=== PATIENT | female | born 1960 | race Caucasian/White ===

== ENCOUNTER 2017-07-06 17:58 | Inpatient (IN) | payer OTHER ==
[~2017-07-06] VITALS: Ht 167.6 cm; Wt 68.0 kg
[~2017-07-06 17:58] MED LIST: ATIVAN0.5 M1 PO; ATIVAN1 M1 PO; ATORVASTATIN CA40 M1 PO; DILAUDID2 M1 PO; ESCITALOPRAM OX20 MG PO; LORAZEPAM0.5 M1 PO; MAGNESIUM OXID400 M1 PO; OXYCODONE HCL5 M1 PO; OXYCONTIN20 M1 PO; PANTOPRAZOLE SO40 M1 PO; VICODIN5-300 PO; ZOFRAN ODT4 M1 PO
--- NOTE | 2017-07-06 18:47 | ED GI/GU/ABDOMINAL COMPLAINT ---
See Addendum History of Present Illness General Chief Complaint: General Adult Stated Complaint: SIB PCP FOR INCONTINENCE TO STOOL +WEAKNESS Source: patient Exam Limitations: no limitations Vital Signs & Intake/Output Vital Signs & Intake/Output Vital Signs Date Time Temp Pulse Resp B/P B/P Pulse O2 O2 Flow FiO2 Mean Ox Delivery Rate 07/06 2053 97 16 108/63 96 Room Air 07/06 1806 98.6 110 18 108/68 98 Room Air Allergies Coded Allergies: NO KNOWN ALLERGIES (01/10/12) Reconcile Medications Escitalopram Oxalate 20 MG TABLET 1 TAB PO DAILY MENTAL HEALTH (Reported) Lorazepam 0.5 MG TABLET 1 TAB PO BIDP PRN ANXIETY (Reported) Pantoprazole Sodium 40 MG TABLET.DR 1 TAB PO PRN GI (Reported) Triage Note: 57 YO FEAMLE TO TRIAGE C/O INCONTINENCE OF STOOL AND NOT EATING X5 DAYS. STATES NO APPETITE. DENIES PAIN. PT STATES "IM AN ALCOHOLIC" STATES LAST DRINK WAS 5 DAYS AGO. STATES SHE NORMALLY DRINKS VODKA. DENIES VOMTIING. NOTED TO BE JAUNDICE. Triage Nurses Notes Reviewed? yes ? n Is pt currently ? No Onset: Gradual Duration: week(s): (3) Timing: recent history Location: generalized abdomen No Modifying Factors: none HPI: Patient is a 57-year-old female with history of alcoholism, depression who presents emergency department for evaluation of stool incontinence and weakness for 3 weeks. She reports every bowel movement she has is incontinent. She denies abdominal pain and blood in the stool. She reports mild nausea and retching most mornings. She also states that she is increasingly weak at home mostly of the lower extremities. She lives at home in private residence with . She denies fever, chills, chest pain, shortness of breath. Of note, patient was sober for 6 months after completing rehabilitation July 2016. However, patient reports drinking intermittently after that time. She currently reports that she has not drank since time. Prior to that she was drinking 1 pint a day. She denies any current diagnosis of cirrhosis. Past History Travel History Traveled to [place] past 21 day No Medical History Any Pertinent Medical History? see below for history Neurological: NONE EENT: NONE Cardiovascular: hyperlipidemia Respiratory: NONE Gastrointestinal: NONE Hepatic: NONE Renal: NONE Musculoskeletal: NONE Psychiatric: alcohol dependence, depression Endocrine: NONE Blood Disorders: NONE Cancer(s): NONE [employer]OR/Reproductive: NONE Surgical History Surgical History: non-contributory Psychosocial History Who do you live with Spouse Services at Home None What is your primary language Chinese Tobacco Use: Current Daily Use Daily Tobacco Use Amount/Type: => 5 Cigarettes daily ETOH Use: alcoholic Illicit Drug Use: denies illicit drug use Family History Hx Contributory? No Review of Systems Review of Systems Constitutional: Reports: see HPI, weakness. EENTM: Reports: no symptoms. Respiratory: Reports: no symptoms. Cardiovascular: Reports: no symptoms. GI: Reports: see HPI. Genitourinary: Reports: no symptoms. Musculoskeletal: Reports: no symptoms. Skin: Reports: no symptoms. Neurological/Psychological: Reports: no symptoms. Hematologic/Endocrine: Reports: no symptoms. Immunologic/Allergic: Reports: no symptoms. All Other Systems: Reviewed and Negative Physical Exam Physical Exam General Appearance: alert, awake Head: atraumatic, normal appearance Eyes: Bilateral: PERRL, EOMI, other (mild scleral icterus). Ears, Nose, Throat, Mouth: hearing grossly normal, dry mucosal membranes, yellowing of tongue and floor of mouth Neck: normal inspection, full range of motion Respiratory: normal breath sounds, chest non-tender Cardiovascular: regular rate/rhythm Gastrointestinal: normal bowel sounds, soft, non-tender, hepatomegaly, no rebound or guarding Back: normal inspection, normal range of motion, no vertebral tenderness Extremities: normal range of motion, straight leg raised, leg muscular atrophy bilaterally Skin: intact, jaundice, copper colored, dry Core Measures ACS in differential dx? No Sepsis Present: No Sepsis Focused Exam Completed? No Progress Differential Diagnosis: Hepatitis, liver cirrhosis, cholangitis, cholecystitis, hepatitis C, Plan of Care: Orders Procedure Date/time Status Regular Diet 07/07 B Active LACTIC ACID 07/064 Active OXYGEN SETUP (GEN) 07/06 2107 Active Saline Lock 07/06 2107 Active Admit to inpatient 07/06 2107 Active Vital Signs 07/06 2107 Active Activity/Ambulation 07/06 2107 Active Code Status 07/06 2107 Active Add-on Test (ER Only) 07/06 2051 Active Add-on Test (ER Only) 07/06 2018 Active EKG 07/06 2018 Active PARTIAL THROMBOPLASTIN TIME 07/06 2014 Complete PROTHROMBIN TIME 07/06 2014 Complete LACTIC ACID 07/06 2014 Complete TYPE & SCREEN (NOT X-MATCH) 07/06 2014 Complete Add-on Test (ER Only) 07/06 194 Active MAGNESIUM 07/06 1921 Complete DIRECT BILIRUBIN 07/06 1921 Complete URINE DRUGS OF ABUSE 07/06 1851 Active URINALYSIS 07/06 1851 Active LIPASE 07/06 1851 Complete ETHANOL 07/06 1851 Complete COMPREHENSIVE METABOLIC PANEL 07/06 1851 Complete CBC WITHOUT DIFFERENTIAL 07/06 1851 Complete Current Medications Sig/Miguel Start time Last Medication Dose Stop Time Status Admin Potassium Chloride 40 MEQ ONCE ONE 07/06 2230 AC (K-Dur) 07/06 2231 Magnesium Sulfate 1 GM ONCE ONE 07/06 2100 AC 07/06 (Mag Sulfate in D5) 07/07 Dextrose/Water 100 ML (D5W) Sodium Chloride 1,000 ML ONCE ONE 07/06 2015 AC 07/06 (Normal Saline 0.9%) 07/074 2014 Laboratory Tests 07/06/172042: Lactic Acid 1.1, PT 21.4 H, INR 2.05 H, APTT 35 07/06/171920: Anion Gap 11, Estimated GFR 57 L, BUN/Creatinine Ratio 17.0, Glucose 117 H, Calcium 7.9 L, Magnesium 0.8 *L, Total Bilirubin 10.2 H, Direct Bilirubin 8.5 H, AST 76 H, ALT 20, Alkaline Phosphatase 269 H, Total Protein 7.0, Albumin 2.9 L, Globulin 4.1, Albumin/Globulin Ratio 0.7 L, Lipase 77, CBC w Diff MAN DIFF ORDERED, RBC 2.32 L, MCV 116.1 H, MCH 38.9 H, RDW 20.5 H, MPV 8.6, Segmented Neutrophils 85 H, Band Neutrophils 8 H, Lymphocytes 3 L, Monocytes 4, Platelet Estimate ADEQUATE, Polychromasia 1+, Poikilocytosis 1+, Anisocytosis 1+, Macrocytic Cells 2+, Stomatocytes 1+, PUBS MCHC 33.5, Serum Alcohol < 10.0 Diagnostic Imaging: Viewed by Me: CT Scan. Discussed w/RAD: CT Scan. Radiology Impression: PATIENT: LORRAINE BALDWIN PRESENT AGE: 57 PATIENT ACCOUNT NO: [id number] : 56 LOCATION: [facility] ORDERING PHYSICIAN: Thuan PUGH SERVICE DATE: 07/06/17 EXAM TYPE : CAT - CT ABD & PELVIS W/O IV CONTRAS EXAMINATION: CT ABDOMEN AND PELVIS WITHOUT CONTRAST CLINICAL INFORMATION: Abdominal pain. Hepatomegaly. COMPARISON: 07/06/2011 TECHNIQUE: Multidetector volumetric imaging was performed from the superior aspect of the liver through the pubic symphysis. Sagittal and coronal reformatted images were obtained on the technologist's workstation. DLP: 345 mGy -cm FINDINGS: LUNG BASES: Scattered linear opacities of atelectasis in lung bases. No basilar consolidation or pleural effusion. Atherosclerotic calcification of coronary arteries and thoracic aorta. LIVER, GALLBLADDER, AND BILIARY TREE: Hepatomegaly, diffuse hepatic steatosis and lobulated hepatic contour, system with cirrhosis. No evidence of hepatic mass on this noncontrast exam. No intrahepatic bile duct dilatation. Gallbladder is distended to 4.4 cm transverse diameter and contains hyperdense sludge. No gallbladder wall edema or pericholecystic fluid. PANCREAS: Unremarkable. SPLEEN: Splenomegaly. Spleen measures 17.2 cm long and 13.2 cm AP, compared to 13.8 x 11.9 cm on 07/06/2011. ADRENAL GLANDS: Unremarkable. KIDNEYS AND URETERS: The kidneys are normal in size, shape, and attenuation. No hydronephrosis, hydroureter, or calculi seen. No perinephric stranding. BLADDER: Urinary bladder is empty. No bladder calculi. The presence of gas within the bladder requires clinical correlation; query whether there has been any recent bladder catheterization. There is no overt wall thickening. GASTROINTESTINAL TRACT AND PERITONEAL CAVITY: Trace amount of free fluid extends along the paracolic gutters. Stomach is unremarkable. Bowel loops are normal in caliber. The appendix is normal. Multiple diverticula of the distal descending and sigmoid colon. No focal pericolonic fat stranding, abscess or pneumoperitoneum. Minimal haziness of perirectal fat is of doubtful significance in this patient with hepatosplenomegaly and trace abdominal ascites. There is no evidence of submucosal edema of the rectal wall or perirectal fluid collection. ABDOMINAL WALL: Unremarkable. LYMPH NODES: No pathologic sized lymph nodes within the abdomen or pelvis. VASCULAR: Atherosclerosis of the abdominal aorta and branch vessels. At the level of the renal arteries, the aorta is 1.8 cm diameter. Further distally, the infrarenal aorta measures 2.9 cm AP and 3 cm transverse (compared to 2.4 cm maximum diameter on 07/06/2011). There is severe atherosclerotic calcification of common iliac arteries. PELVIC VISCERA: No evidence of uterine or adnexal mass. OSSEOUS STRUCTURES: Old, healed fractures of bilateral pubic rami. No acute findings in the mildly degenerated lumbar spine. IMPRESSION: 1. Chronic hepatosplenomegaly and hepatic cirrhosis. 2. Gallbladder contains sludge. No calcified stones or wall edema. No CT imaging evidence of acute cholecystitis. 3. Colonic diverticulosis without diverticulitis. 4. Mild aneurysmal dilatation of the infrarenal abdominal aorta. 5. The finding of gas within the urinary bladder requires clinical correlation; query whether there has been any recent bladder catheterization. DICTATED BY: Joel Díaz MD DATE/TIME DICTATED:07/06/172044 ADVERTISING DISPATCH CLERK:TAMANNA DATE/TIME TRANSCRIBED:07/06/172044 CONFIDENTIAL, DO NOT COPY WITHOUT APPROPRIATE AUTHORIZATION. <Electronically signed in Other Vendor System> SIGNED BY: Joel Díaz MD 07/06/172106 Initial ED EKG: normal sinus rhythm, rate (95), nonspecific ST T wave chg Departure Departure Disposition: STILL A PATIENT Condition: Stable Clinical Impression Primary Impression: Hypokalemia Secondary Impressions: Hyperbilirubinemia, Hypomagnesemia, Transaminitis Referrals: Dayday Sethi MD (PCP/Family) Departure Forms: Customer Survey General Discharge Information Admission Note Spoke With: Minna Aviles MD Documentation of Exam: Documentation of any treatments & extenuating circumstances including Concerns Regarding Discharge (functional status, medication knowledge or non-compliance, living conditions, etc.) that warrant an admission rather than observation: Patient will require cardiac telemetry. IV potassium. IV magnesium. High risk. GI consultation. Patient would do poorly as an outpatient. Repeat labs.
[2017-07-06 19:32] LABS: HEMATOCRIT 26.9 % (37-47); MEAN CORPUSCULAR HGB 38.9 PG (27.0-31.0); MEAN CORPUSCULAR HGB CONC 33.5 G/DL (33.0-37.0); MEAN CORPUSCULAR VOLUME 116.1 FL (81.0-99.0); MEAN PLATELET VOLUME 8.6 FL (7.4-10.4); PLATELET COUNT 198 /CUMM (130-400); RBC DISTRIBUTION WIDTH 20.5 % (11.5-14.5); RED BLOOD CELL CT 2.32 /CUMM (4.20-5.40); WHITE BLOOD CELL COUNT 14.6 /CUMM (4.8-10.8)
--- NOTE | 2017-07-06 21:07 | CT SCAN REPORT ---
EXAMINATION: CT ABDOMEN AND PELVIS WITHOUT CONTRAST CLINICAL INFORMATION: Abdominal pain. Hepatomegaly. COMPARISON: 07/06/2011 TECHNIQUE: Multidetector volumetric imaging was performed from the superior aspect of the liver through the pubic symphysis. Sagittal and coronal reformatted images were obtained on the technologist's workstation. DLP: 345 mGy-cm FINDINGS: LUNG BASES: Scattered linear opacities of atelectasis in lung bases. No basilar consolidation or pleural effusion. Atherosclerotic calcification of coronary arteries and thoracic aorta. LIVER, GALLBLADDER, AND BILIARY TREE: Hepatomegaly, diffuse hepatic steatosis and lobulated hepatic contour, system with cirrhosis. No evidence of hepatic mass on this noncontrast exam. No intrahepatic bile duct dilatation. Gallbladder is distended to 4.4 cm transverse diameter and contains hyperdense sludge. No gallbladder wall edema or pericholecystic fluid. PANCREAS: Unremarkable. SPLEEN: Splenomegaly. Spleen measures 17.2 cm long and 13.2 cm AP, compared to 13.8 x 11.9 cm on 07/06/2011. ADRENAL GLANDS: Unremarkable. KIDNEYS AND URETERS: The kidneys are normal in size, shape, and attenuation. No hydronephrosis, hydroureter, or calculi seen. No perinephric stranding. BLADDER: Urinary bladder is empty. No bladder calculi. The presence of gas within the bladder requires clinical correlation; query whether there has been any recent bladder catheterization. There is no overt wall thickening. GASTROINTESTINAL TRACT AND PERITONEAL CAVITY: Trace amount of free fluid extends along the paracolic gutters. Stomach is unremarkable. Bowel loops are normal in caliber. The appendix is normal. Multiple diverticula of the distal descending and sigmoid colon. No focal pericolonic fat stranding, abscess or pneumoperitoneum. Minimal haziness of perirectal fat is of doubtful significance in this patient with hepatosplenomegaly and trace abdominal ascites. There is no evidence of submucosal edema of the rectal wall or perirectal fluid collection. ABDOMINAL WALL: Unremarkable. LYMPH NODES: No pathologic sized lymph nodes within the abdomen or pelvis. VASCULAR: Atherosclerosis of the abdominal aorta and branch vessels. At the level of the renal arteries, the aorta is 1.8 cm diameter. Further distally, the infrarenal aorta measures 2.9 cm AP and 3 cm transverse (compared to 2.4 cm maximum diameter on 07/06/2011). There is severe atherosclerotic calcification of common iliac arteries. PELVIC VISCERA: No evidence of uterine or adnexal mass. OSSEOUS STRUCTURES: Old, healed fractures of bilateral pubic rami. No acute findings in the mildly degenerated lumbar spine. IMPRESSION: 1. Chronic hepatosplenomegaly and hepatic cirrhosis. 2. Gallbladder contains sludge. No calcified stones or wall edema. No CT imaging evidence of acute cholecystitis. 3. Colonic diverticulosis without diverticulitis. 4. Mild aneurysmal dilatation of the infrarenal abdominal aorta. 5. The finding of gas within the urinary bladder requires clinical correlation; query whether there has been any recent bladder catheterization.
[2017-07-06 21:19] LABS: PT 21.4 SEC (9.4-12.5); PTT 35 SEC (25-37)
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
[2017-07-07] VITALS (8 sets, daily range): BP systolic 94–124; BP diastolic 52–62
--- NOTE | 2017-07-07 00:37 | RADIOLOGY REPORT ---
EXAMINATION: CHEST 1 VIEW CLINICAL INFORMATION: Crackles on exam. Wheezing. Cough. COMPARISON: December 06, 2010. TECHNIQUE: An AP view of the chest is provided. FINDINGS: The cardiac silhouette is not enlarged. The mediastinal and hilar contours are unremarkable. There are neither pleural effusions nor pneumothoraces. There are no consolidations. The osseous structures are unremarkable. IMPRESSION: No evidence for acute disease.
--- NOTE | 2017-07-07 04:52 | Admission Certification ---
Admission Certification Certification Statement - As attending physician, I certify that at the time of - admission, based on clinical presentation, severity of - symptoms, need for further diagnostic testing and - therapeutic interventions, and risk of adverse outcomes - without in-hospital treatment, in my clinical assessment, - this patient requires an acute hospital stay for a minimum - of two nights or longer. I have also considered psychsocial - factors such as support system, advanced age, financial - issues, cognitive issues, and failed out-patient treatments, - past re-admission history, safety of patient, and lack of - compliance as applicable. Specific rationale supporting this admission is: Hypokalemia, hypomagnesemia, hyperbilirubinemia, coagulopathy, alcohol withdrawal
--- NOTE | 2017-07-07 07:18 | PN- Housestaff ---
Madison PAULSON,[facility] 07/07/17 0718: Subjective Follow-up For: Hyperbilirubinemia electrolyte abnormalities ethanol abuse Tele-Events Since Last Visit: Patient was in normal sinus rhythm with heart rate of 85-107. No overnight events. Subjective: Patient was seen and examined at bedside. She is drowsy and woke up briefly to talk. She denies any pain. Does not offer any complaints. Review of Systems Constitutional: Reports: no symptoms. Objective Last 24 Hrs of Vital Signs/I&O Vital Signs Date Time Temp Pulse Resp B/P B/P Pulse O2 O2 Flow FiO2 Mean Ox Delivery Rate 07/07 0654 98.5 90 20 94/52 97 Nasal Cannula 07/07 0107 98.6 89 18 124/62 97 Nasal Cannula 07/07 0106 97 Nasal 2.0L Cannula 07/07 0000 98.6 89 20 124/62 07/06 2301 20 94 Nasal 2.0L Cannula 07/06 2258 98.3 98 20 112/54 89 Room Air 07/06 2053 97 16 108/63 96 Room Air 07/06 1806 98.6 110 18 108/68 98 Room Air Intake & Output 07/07 1600 07/07 0800 07/07 0000 Intake Total 0 Output Total Balance 0 Intake, Oral 0 Number 2 Bowel Movements Patient 150 lb Weight Weight Reported by Patient Measurement Method Physical Exam General Appearance: Cooperative, No Acute Distress, drowsy, lethargic Skin: No Rashes, No Breakdown Skin Temp/Moisture Exam: Warm/Dry Sepsis Skin Exam (color): Normal for Ethnicity HEENT: Atraumatic Cardiovascular: Normal S1, Normal S2, No Murmurs Lungs: Clear to Auscultation, Normal Air Movement Abdomen: Soft, No Tenderness Extremities: No Edema Assessment/Plan Assessment: Mr. Franklin is a 57-year-old female with past medical history of hyperlipidemia , alcohol abuse, depression, peptic ulcer disease who presents with complaints of stool incontinence and poor appetite. Assessment and Plan: Diarrhea and Electrolyte Abnormalities: Patient came in with severe hypokalemia and hypomagnesemia likely secondary to severe diarrhea and alcoholism. She continues to have loose bowel movements. * Will continue repletion of K and Mg as necessary. * Repeat BEP at 6pm * Will add loperamide prn for diarrhea. * Will follow stool studies. Liver Cirrhosis: Her CT scan shows chronic hepatosplenomegaly and hepatic cirrhosis likely secondary to heavy alcohol use. Her lab studies shows elevated INR of 2.0 and direct bilirubin of 8. Abdominal U/S shows 5 cm hypoechoic region within the right hepatic lobe concerning for malignancy. * She has a high MELD score of 22 points and Maddrey's Discriminamt Function of 58.6 points. Both indicate a fairly poor prognosis. * Will assess the need for steroids * Further imaging with MRI or CT contrast to assess the nodule. * GI consult for further recommendations on management. Anemia: * Her Hb is low at 7.6 which has fallen from 9.0. It could be dilutional from the IV fluids she has been receiving. * Her MCV is elevated likely due to alcohol use. * continue folate supplementation * Will monitor CBC History of Alcohol Use: * Ativan per CIWA * Continue folate, thiamine, multivitamins supplementation. DVT Prophylaxis: Elevated INR of 2.0. Will continue with ALPS Diet: Regular Code: Full Code Problem List: 1. Hypokalemia Pain Ratin Pain Location: none Pain Goal: Remain pain free Pain Plan: none Tomorrow's Labs & Rationales: BEP, Mg, LFTs, CBC BetoKuldeep 07/07/17 1201: Attending MD Review Statement Attending Statement Attending MD Statement: examined this patient, discuss w/resident/PA/MANAGER FLOAT, agreed w/resident/PA/MANAGER FLOAT, discussed with family, reviewed EMR data (avail), discussed with nursing, discussed with case mgmt, reviewed images, amended to note Attending Assessment/Plan: 57 o/f with pmh of alcoholism, cirrhosis, hepatosplenomegaly comes with diarrhea and severe electrlotyle abnormalities inclduing hypokalemia, hypomagenesemia needing admission and watchful for delirium tremens with CIWA protocol. Patient has 7-8 episodes of loose stools this am. Patient WBC improved off antibitoics. Plan is to replace elcetrolytes and working diagnosis of diarrhea requiring IVF work up wit follow up labs. Ativan as per CIWA and monitor hemodynamics. Patient RUQ USG reviewed solitary liver lesion about 5 cm, GI consult. gi/dvt prophyalxis. full code.
[2017-07-07 08:26] LABS: HEMATOCRIT 22.7 % (37-47); MEAN CORPUSCULAR HGB 39.4 PG (27.0-31.0); MEAN CORPUSCULAR HGB CONC 33.6 G/DL (33.0-37.0); MEAN CORPUSCULAR VOLUME 117.3 FL (81.0-99.0); MEAN PLATELET VOLUME 8.4 FL (7.4-10.4); PLATELET COUNT 156 /CUMM (130-400); RBC DISTRIBUTION WIDTH 20.8 % (11.5-14.5); RED BLOOD CELL CT 1.94 /CUMM (4.20-5.40); WHITE BLOOD CELL COUNT 9.8 /CUMM (4.8-10.8)
--- NOTE | 2017-07-07 10:20 | ULTRASOUND REPORT ---
EXAMINATION: US ABDOMEN LIMITED CLINICAL INFORMATION: Diarrhea, nausea and elevated bilirubin. COMPARISON: CT abdomen pelvis 07/06/2017 TECHNIQUE: Real-time imaging of the right upper quadrant abdominal viscera. Examination mildly limited secondary to overlying bowel gas and poor liver penetration. FINDINGS: PANCREAS: Visualized portions of the pancreas are normal in appearance. LIVER: The liver is enlarged and demonstrates heterogeneously increased echogenicity. Liver margins are relatively smooth. There is a more focal hypoechoic region within the right hepatic lobe which measures approximately 3.9 x 4.8 x 4.9 cm which is nonspecific. GALLBLADDER: The gallbladder is physiologically distended. Echogenic bile is present dependently within the gallbladder. There is no definitive gallbladder wall thickening. Small amount of pericholecystic fluid is present adjacent to the liver. Negative sonographic Coffman's sign. COMMON BILE DUCT: Normal in caliber measuring 0.4 cm in diameter. RIGHT KIDNEY: Normal. No hydronephrosis. No renal calculi or focal parenchymal lesions. The kidney measures 10.9 cm in maximum dimension. FREE FLUID: None. IMPRESSION: 1. Hepatomegaly with heterogeneously increased echogenicity but relatively smooth borders. This is a nonspecific finding but suggestive of underlying liver disease. There is a more focal hypoechoic region measuring approximately 5 cm within the right hepatic lobe. It is unclear whether this represents a true lesion or just focal region of heterogeneous tissue. Given abnormal liver findings, a multi phase CT or MRI of the liver is recommended to exclude malignancy. 2. The gallbladder contains echogenic bile and there is a small amount of pericholecystic fluid adjacent to the liver. I suspect this represents changes secondary to adjacent liver disease. Clinical correlation recommended.
[2017-07-08] VITALS: BP 118/56
[2017-07-08 06:30] VITALS: BP 106/54
--- NOTE | 2017-07-08 08:14 | PN- Housestaff ---
Madison PAULSON,[facility] 07/08/17 0814: Subjective Follow-up For: Hyperbilirubinemia electrolyte abnormalities ethanol abuse Complaints: no complaints Tele-Events Since Last Visit: Patient was in normal sinus rhythm with heart rate in the 90s. One transient episode of sinus tachycardia. Subjective: Patient was seen and examined at bedside. She still feels weak but much better after having food. Mentions this is the first time in weeks she's having a proper meal. She continues to have diarrhea but the number of episodes have decreased. Review of Systems Constitutional: Reports: weakness. Objective Last 24 Hrs of Vital Signs/I&O Vital Signs Date Time Temp Pulse Resp B/P B/P Pulse O2 O2 Flow FiO2 Mean Ox Delivery Rate 07/08 1130 99.8 92 18 108/50 95 Nasal 2.0L Cannula 07/08 0800 Nasal 2.0L Cannula 07/08 0630 99.0 91 20 106/54 95 07/08 0000 Nasal 2.0L Cannula 07/08 0000 99.2 91 20 118/56 07/07 2300 99.2 91 20 118/56 97 07/07 1600 Nasal 2.0L Cannula 07/07 1445 98.8 93 18 108/58 96 Nasal 2.0L Cannula 07/07 1400 98.4 88 16 108/60 Intake & Output 07/08 1600 07/08 0800 07/08 0000 Intake Total 120 200 Output Total Balance 120 200 Intake, Oral 120 200 Number 1 Bowel Movements Physical Exam General Appearance: Alert, Oriented X3, Cooperative, No Acute Distress Skin: No Rashes, No Breakdown Skin Temp/Moisture Exam: Warm/Dry Sepsis Skin Exam (color): Normal for Ethnicity HEENT: Atraumatic Cardiovascular: Normal S1, Normal S2, No Murmurs Lungs: Clear to Auscultation, Normal Air Movement Abdomen: Soft, No Tenderness Neurological: Normal Speech Extremities: No Edema Assessment/Plan Assessment: Mr. Franklin is a 57-year-old female with past medical history of hyperlipidemia , alcohol abuse, depression, peptic ulcer disease who presents with complaints of stool incontinence and poor appetite. Assessment and Plan: Diarrhea and Electrolyte Abnormalities: Patient came in with severe hypokalemia and hypomagnesemia likely secondary to severe diarrhea and alcoholism. She continues to have loose bowel movements though they have decreased in frequency. * Will continue repletion of K and Mg as necessary. * Discontinue Loperamide. * Will follow stool studies and c.diff. Liver Cirrhosis: Her CT scan shows chronic hepatosplenomegaly and hepatic cirrhosis likely secondary to heavy alcohol use. Her lab studies shows elevated INR of 2.0 and direct bilirubin of 8. Abdominal U/S shows 5 cm hypoechoic region within the right hepatic lobe concerning for malignancy. * She has a high MELD score of 22 points and Maddrey's Discriminamt Function of 58.6 points. Both indicate a fairly poor prognosis. * Will motley off steroids for now. * Further imaging with MRI or CT contrast to assess the lesion, once GFR stabilizes. * Alpha fetoprotein - pending * RBC Folate - pending Anemia: * Her Hb dropped further to 6.6. She is receiving 1unit PRBC today. * Will repeat CBC after blood transfusion. * Her MCV is elevated likely due to alcohol use. * continue folate supplementation * Will monitor CBC History of Alcohol Use: * Ativan per CIWA * Continue folate, thiamine, multivitamins supplementation. DVT Prophylaxis: Elevated INR of 2.0. Will continue with ALPS * One dose of SC Vit K 10mg * Repeat INR tomorrow. Diet: Regular Code: Full Code Problem List: 1. Diarrhea Pain Ratin Pain Location: none Pain Goal: Remain pain free Pain Plan: none Tomorrow's Labs & Rationales: CBC, BEP, Mg, Ca, Ph Kuldeep Pérez 07/08/17 1227: Attending MD Review Statement Attending Statement Attending MD Statement: examined this patient, discuss w/resident/PA/HEATING WORKER, agreed w/resident/PA/HEATING WORKER, discussed with family, reviewed EMR data (avail), discussed with nursing, discussed with case mgmt, reviewed images, amended to note Attending Assessment/Plan: 57 o/f with pmh of alcoholism, cirrhosis, hepatosplenomegaly comes with diarrhea and severe electrlotyle abnormalities inclduing hypokalemia, hypomagenesemia needing admission and watchful for delirium tremens with CIWA protocol. Plan is to replace elcetrolytes and working diagnosis of diarrhea requiring IVF work up wit follow up labs. Ativan as per CIWA and monitor hemodynamics. Anemia hb 6.8 this am, repeat labs and serial cbc monitoring, ppi , transfuse as needed, GI eval ongoing. Patient RUQ USG reviewed solitary liver lesion about 5 cm, GI pending. CT vs MRI protocol as per GI. gi/dvt prophyalxis. full code.
[2017-07-08 08:21] LABS: RBC DISTRIBUTION WIDTH 20.4 % (11.5-14.5)
[2017-07-08 08:51] LABS: HEMATOCRIT 20.7 % (37-47); MEAN CORPUSCULAR HGB CONC 32.7 G/DL (33.0-37.0); MEAN CORPUSCULAR VOLUME 119.2 FL (81.0-99.0); MEAN PLATELET VOLUME 8.1 FL (7.4-10.4); PLATELET COUNT 143 /CUMM (130-400); RED BLOOD CELL CT 1.74 /CUMM (4.20-5.40); WHITE BLOOD CELL COUNT 9.4 /CUMM (4.8-10.8)
--- NOTE | 2017-07-08 09:30 | PN- Student ---
Subjective Subjective: 07/07/17 Patient seen however was very drowsy and did not want to talk. States feeling very tired. Minimal questions were answered however patient states minimal discomfort and denied any complaints or overnight events. Objective Objective: Vital Signs Date Time Temp Pulse Resp B/P B/P Pulse O2 O2 Flow FiO2 Mean Ox Delivery Rate 07/07 1445 98.8 93 18 108/58 96 Nasal 2.0L Cannula 07/07 1400 98.4 88 16 108/60 07/07 1000 98.7 90 20 112/62 07/07 0800 98.4 80 16 100/60 07/07 0800 95 Nasal 2.0L Cannula 07/07 0654 98.5 90 20 94/52 97 Nasal Cannula 07/07 0107 98.6 89 18 124/62 97 Nasal Cannula 07/07 0106 97 Nasal 2.0L Cannula 07/07 0000 98.6 89 20 124/62 07/06 2301 20 94 Nasal 2.0L Cannula 07/06 2258 98.3 98 20 112/54 89 Room Air 07/06 2053 97 16 108/63 96 Room Air 07/06 1806 98.6 110 18 108/68 98 Room Air Physical Exam General: AOx3, drowsy, resistant to answer questions, NAD HEENT: AT/NC, PERRLA, icteric sclera bilaterally, EOMI. Mucosa dry. Neck: Supple, no JVD, no LAD Heart: RRR, normal S1, S2, mild systolic murmur, no rubs or gallops Repiratory: Lungs CTA bilaterally, no wheezes, rales, or rhonchi Abdominal: Mildly distended, caput medusa, normoactive bowel sounds. Soft, NTTP. HSM. Skin: Scattered spider angiomas on anterior chest Extremities: No LE edema. 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 Neuro: Drowsy, no focal neuro deficits. Results Results: Laboratory Tests 07/07/17 0300: Alpha Fetoprotein Pending 07/07/17 0256: Anion Gap 11, Estimated GFR > 60, BUN/Creatinine Ratio 17.8, Phosphorus 3.0, Magnesium 1.2 L, Troponin I < 0.01 07/06/17 2245: Lactic Acid 1.2 07/06/172042: Lactic Acid 1.1, PT 21.4 H, INR 2.05 H, APTT 35 07/06/17 192: Anion Gap 11, Estimated GFR 57 L, BUN/Creatinine Ratio 17.0, Glucose 117 H, Calcium 7.9 L, Magnesium 0.8 *L, Total Bilirubin 10.2 H, Direct Bilirubin 8.5 H, AST 76 H, ALT 20, Alkaline Phosphatase 269 H, Total Protein 7.0, Albumin 2.9 L, Globulin 4.1, Albumin/Globulin Ratio 0.7 L, Lipase 77, Folate 3.7, CBC w Diff MAN DIFF ORDERED, RBC 2.32 L, MCV 116.1 H, MCH 38.9 H, RDW 20.5 H, MPV 8.6, Segmented Neutrophils 85 H, Band Neutrophils 8 H, Lymphocytes 3 L, Monocytes 4, Platelet Estimate ADEQUATE, Polychromasia 1+, Poikilocytosis 1+, Anisocytosis 1+, Macrocytic Cells 2+, Stomatocytes 1+, PUBS MCHC 33.5, Hepatitis A IgM Ab NONREACTIVE, Hep Bs Antigen NONREACTIVE, Hep B Core IgM Ab Conf NONREACTIVE, Hepatitis C Antibody NONREACTIVE, HIV 1&2 Ab Western Blot NONREACTIVE, Serum Alcohol < 10.0 Microbiology 07/07 0625 STOOL: Stool Culture - RECD 07/07 0545 STOOL: Clostridium difficile Toxin A & B - COLB 07/07 0400 BLOOD: Blood Culture - RECD 07/07 0340 BLOOD: Blood Culture - RECD CT Abdomen/Pelvis 1. Chronic hepatosplenomegaly and hepatic cirrhosis. 2. Gallbladder contains sludge. No calcified stones or wall edema. No CT imaging evidence of acute cholecystitis. 3. Colonic diverticulosis without diverticulitis. Abdominal Ultrasound 1. Hepatomegaly with heterogeneously increased echogenicity but relatively smooth borders. This is a nonspecific finding but suggestive of underlying liver disease. There is a more focal hypoechoic region measuring approximately 5 cm within the right hepatic lobe. It is unclear whether this represents a true lesion or just focal region of heterogeneous tissue. Given abnormal liver findings, a multi phase CT or MRI of the liver is recommended to exclude malignancy. 2. The gallbladder contains echogenic bile and there is a small amount of pericholecystic fluid adjacent to the liver probably secondary to adjacent liver disease. Assessment/Plan Assessment: 57 y/o female with PMHx significant for depression, PUD, HLD, and alcohol abuse presented to the ED with multiple complaints including diarrhea for the last 10 days with 5-6 bowel movements per day, diffuse abdominal pain, nausea, vomimiting, and decreased appetite, admitted to telemetry for electrolyte abnormalities. Patient also found to have liver cirrhosis on CT and intrahepatic mass on ultrasound. Plan: 07/07/17 Electrolyte Abnormalities secondary to Diarrhea * Continue to repleat magnesium and potassium PRN * Continue athletic monitor for electrolyte associated cardiac concerns * Add loperamide for diarrhea * Stool and C. diff cultures pending Liver Cirrhosis/Mass found on Ultrasound * CT scan revealed signifcant hepatomegaly and hepatic cirrhosis. * MELD score of 22 and Maddrey's Discriminant Function of 58.6 * Abdominal ultrasound identified hypoechoic 5cm intrahepatic mass of the right hepatic lobe * Multiphase CT with contrast or MRI recommended * Consult GI for further recommendations Macrocytic Anemia * Hemoglobin decreased from 9.0 to 7.6. * MCV elevated at 117.3. Retic count 4.83. * Anemia may be secondary to alcohol use or dilution from IV fluids * Continue to monitor CBC Alcoholism * Monitor CIWA scores * Ativan PRN * Psych consult pending * Continue folate, thiamine, and multivitamins as needed DVT Prophylaxis: INR elevated at 2.0 -- Continue ALPS Code status: Full Code Diet: Regular EJ JENNIFER Arredondo BLOOD CULTURE 07/07 0301 Active MAGNESIUM 07/07 0300 Complete BASIC ELECTROLYTES PLUS BUN&CR 07/07 0300 Complete ALPHA FETOPROTEIN Ref$ 07/07 0300 Active TROPONIN LEVEL 07/07 0256 Complete PHOSPHORUS 07/07 0256 Complete Pathway - chart 07/07 0152 Active Skin/Pressure Ulcer Assess (Sk 07/07 0123 Active Vital Signs 07/07 57 Active Teach/Educate 07/07 57 Active Pain Treatment and Response 07/07 57 Active Nutritional Intake, Monitor 07/07 57 Active Isolation 07/07 57 Active Intake & Output 07/07 57 Active Patient Care Conference 07/07 57 Active Activity/Ambulation 07/07 57 Active SWALLOW EVALUATION 07/07 UN Active Evaluate Swallowing 07/07 UN Complete Therapeutic Activities 07/07 UNK Complete PT EVAL LOW COMPLEX 20 MIN 07/07 UN Complete Gait Training 07/07 UN Complete Change service to 07/07 UN Active Lab Add-on Test 07/07 UN Active MISSING MEDICATION FORM 07/07 UN Active SOCIAL WORK CONSULT 07/07 UNK Active PSYCHIATRIC CONSULT 07/07 UNK Active CULTURE,STOOL 07/06 2336 Active LACTIC ACID 07/06 2314 Complete PT Evaluate & Treat 07/06 2238 Active Pathway - chart 07/06 2238 Active House Staff 07/06 2238 Active Patient Data 07/06 2238 Active NUTRITIONAL CONSULT 07/06 2238 Active Code Status 07/06 2238 Active Patient Data 07/06 2220 Active OXYGEN SETUP (GEN) 07/06 2107 Active Saline Lock 07/06 2107 Active Admit to inpatient 07/06 2107 Active Vital Signs 07/06 2107 Active Activity/Ambulation 07/06 2107 Active Code Status 07/06 2107 Complete Add-on Test (ER Only) 07/06 2051 Active Add-on Test (ER Only) 07/06 2018 Active EKG 07/06 2018 Active PARTIAL THROMBOPLASTIN TIME 07/06 2014 Complete PROTHROMBIN TIME 07/06 2014 Complete LACTIC ACID 07/06 2014 Complete TYPE & SCREEN (NOT X-MATCH) 07/06 2014 Complete Add-on Test (ER Only) 07/06 194 Active MAGNESIUM 07/06 192 Complete HIV (Reflex to HIVCQ) 07/06 192 Complete HEPATITIS PANEL 07/06 192 Complete FOLIC ACID 07/06 192 Complete DIRECT BILIRUBIN 07/06 192 Complete LIPASE 07/06 185 Complete ETHANOL 07/06 185 Complete COMPREHENSIVE METABOLIC PANEL 07/06 185 Complete CBC WITHOUT DIFFERENTIAL 07/06 185 Complete Lab Add-on Test 07/06 UNK Active VTE Mechanical Prophylaxis 07/06 UNK Active MISTAKE 07/06 UNK Active Telemetry/Wool Carder 07/06 UNK Active Intake & Output 07/06 UNK Active CIWA 07/06 UNK Active SOCIAL WORK CONSULT 07/06 UNK Active PSYCHIATRIC CONSULT 07/06 UNK Active
[2017-07-08 11:30] VITALS: BP 108/50
[2017-07-08 11:41] LABS: RED BLOOD CELL CT 1.72 /CUMM (4.20-5.40)
[2017-07-08 11:48] LABS: HEMATOCRIT 20.5 % (37-47); MEAN CORPUSCULAR HGB 38.5 PG (27.0-31.0); MEAN CORPUSCULAR HGB CONC 32.2 G/DL (33.0-37.0); MEAN CORPUSCULAR VOLUME 119.6 FL (81.0-99.0); MEAN PLATELET VOLUME 7.8 FL (7.4-10.4); PLATELET COUNT 144 /CUMM (130-400); RBC DISTRIBUTION WIDTH 19.8 % (11.5-14.5); WHITE BLOOD CELL COUNT 8.8 /CUMM (4.8-10.8)
--- NOTE | 2017-07-08 13:26 | Cons- Gastroenterology ---
General Information and HPI Consulting Request Date of Consult: 07/08/17 Requested By: Beto PAULSON,Kuldeep Reason for Consult: Cirrhosis Anemia Liver lesion Source of Information: patient, old records Exam Limitations: clinical condition, poor historian History of Present Illness: The patient has had more than one week of diarrhea, without evident blood or black color. She denies nausea, vomiting, abdominal pain. She was drinking alcohol until hospitalization. She was admitted with malaise, cough, electrolyte and metabolic derangements. Allergies/Medications Allergies: Coded Allergies: NO KNOWN ALLERGIES (01/10/12) Home Med List: Ciprofloxacin HCl (Cipro) 500 MG TABLET 500 MG PO BID collotis Escitalopram Oxalate 20 MG TABLET 1 TAB PO DAILY MENTAL HEALTH (Reported) Metronidazole (Flagyl) 250 MG TABLET 1 TAB PO BID Collitis Pantoprazole Sodium 40 MG TABLET.DR 1 TAB PO PRN GI (Reported) Rifaximin (Xifaxan) 550 MG TABLET 1 TAB PO BID Hepatic encephalopathy Current Medications: Current Medications Sig/Miguel Start time Last Medication Dose Route Stop Time Status Admin Acetaminophen 650 MG Q6P PRN 07/07 0200 AC PO Escitalopram Oxalate 20 MG DAILY 07/07 1000 AC 07/08 PO 0959 Folic Acid 1 MG DAILY 07/07 1000 AC 07/08 PO 0959 Hydrocodone Bitart/ 1 TAB Q6P PRN 07/07 0200 AC Acetaminophen PO Loperamide HCl 2 MG Q6P PRN 07/07 1400 DC PO Lorazepam 2 MG Q6 07/06 2359 AC 07/08 PO 1213 Lorazepam 1 MG Q1P PRN 07/06 2345 AC IV Magnesium Sulfate 1 GM Q2H 07/08 1215 AC Dextrose/Water 100 ML IV 07/08 1614 Morphine Sulfate 2 MG Q4P PRN 07/07 0200 AC IV Multivitamins 1 TAB DAILY 07/07 1000 AC 07/08 PO 0959 Omeprazole 40 MG DAILY AC 07/07 0700 AC 07/08 PO 0623 Potassium Chloride 40 MEQ ONCE ONE 07/07 1545 DC 07/07 PO 07/07 1546 1745 Thiamine HCl 100 MG DAILY 07/09 1000 AC PO Thiamine HCl 300 MG TID 07/07 1000 AC 07/08 PO 07/08 2201 0959 Trimethobenzamide HCl 200 MG TID PRN 07/07 0300 AC IM Past History Travel History Traveled to [place] past 21 day No Medical History Blood Transfusion Hx: No Neurological: NONE EENT: NONE Cardiovascular: hyperlipidemia Respiratory: NONE Gastrointestinal: NONE Hepatic: NONE Renal: NONE Musculoskeletal: NONE Psychiatric: alcohol dependence, depression Endocrine: NONE Blood Disorders: NONE Cancer(s): NONE CYTOGENETIC TECHNICIAN/Reproductive: NONE Surgical History Surgical History: non-contributory Psychosocial History Where Do You Live? Home Services at Home: None Smoking Status: Current Everyday Smoker ETOH Use: alcoholic Illicit Drug Use: denies illicit drug use Review of Systems Review of Systems Constitutional: Reports: malaise, weakness. Denies: fever. EENTM: Reports: icterus. Denies: epistaxis. Cardiovascular: Reports: edema. Denies: syncope. Respiratory: Reports: short of breath. Denies: hemoptysis. GI: Reports: see HPI. Genitourinary: Denies: dysuria, hematuria. Musculoskeletal: Denies: muscle stiffness, neck pain. Skin: Reports: jaundice. Denies: lesions. Neurological/Psychological: Reports: cognitive dysfunction. Denies: tremors. Hematologic/Endocrine: Reports: bruising, polyuria. Denies: bleeding. Exam & Diagnostic Data Vital Signs and I&O Vital Signs Date Time Temp Pulse Resp B/P B/P Pulse O2 O2 Flow FiO2 Mean Ox Delivery Rate 07/08 1130 99.8 92 18 108/50 95 Nasal 2.0L Cannula 07/08 0800 Nasal 2.0L Cannula 07/08 0630 99.0 91 20 106/54 95 07/08 0000 Nasal 2.0L Cannula 07/08 0000 99.2 91 20 118/56 07/07 2300 99.2 91 20 118/56 97 07/07 1600 Nasal 2.0L Cannula 07/07 1445 98.8 93 18 108/58 96 Nasal 2.0L Cannula 07/07 1400 98.4 88 16 108/60 Intake & Output 07/08 1600 07/08 0400 07/07 1600 07/07 0400 07/06 1600 07/06 0400 Intake Total 120 200 900 Output Total Balance 120 200 900 Intake, IV 500 Intake, Oral 120 200 400 Number 1 7 Bowel Movements Patient 150 lb 150 lb Weight Weight Reported by Patient Measurement Method Physical Exam: Alert, oriented, slightly confused, slurring words. No apparent distress. Skin normal without rash, lesion, spider telangiectasias, palmar erythema. Positive icterus. Sclera anicteric. No oropharyngeal lesion. Neck supple without thyromegaly or mass. No adenopathy. Heart regular rhythm. Lungs clear. Abdomen is mildly distended without overt ascites, and with normal bowel sounds; no tenderness, mass, or palpable organomegaly. Extremities without edema. 1+ distal pulses. No asterixis. Results Pertinent Lab Results: Laboratory Tests 07/08 07/08 1125 0615 Chemistry Sodium (137 - 145 mmol/L) 140 Potassium (3.5 - 5.1 mmol/L) 4.0 Chloride (98 - 107 mmol/L) 102 Carbon Dioxide (22 - 30 mmol/L) 29 Anion Gap (5 - 16) 9 BUN (7 - 17 mg/dL) 16 Creatinine (0.5 - 1.0 mg/dL) 1.1 H Estimated GFR (>60 ml/min) 51 L BUN/Creatinine Ratio (7 - 25 %) 14.5 Magnesium (1.6 - 2.3 mg/dL) 1.5 L Total Bilirubin (0.2 - 1.3 mg/dL) 10.4 H Direct Bilirubin (< 0.4 mg/dL) 8.8 H AST (14 - 36 U/L) 95 H ALT (9 - 52 U/L) 22 Alkaline Phosphatase (<127 U/L) 203 H Total Protein (6.3 - 8.2 g/dL) 5.8 L Albumin (3.5 - 5.0 g/dL) 2.3 L Hematology CBC w Diff MAN DIFF ORDERED MAN DIFF ORDERED WBC (4.8 - 10.8 /CUMM) 8.8 9.4 RBC (4.20 - 5.40 /CUMM) 1.72 L 1.74 L Hgb (12.0 - 16.0 G/DL) 6.6 *L 6.8 *L Hct (37 - 47 %) 20.5 L 20.7 L MCV (81.0 - 99.0 FL) 119.6 H 119.2 H MCH (27.0 - 31.0 PG) 38.5 H 39.0 H RDW (11.5 - 14.5 %) 19.8 H 20.4 H Plt Count (130 - 400 /CUMM) 144 143 MPV (7.4 - 10.4 FL) 7.8 8.1 Segmented Neutrophils (42.2 - 75.2 %) 66 73 Band Neutrophils (0.0 - 5.0 %) 7 H 3 Lymphocytes (20.5 - 51.1 %) 15 L 14 L Monocytes (1.7 - 9.3 %) 8 9 Eosinophils (0 - 5.0 %) 1 1 Basophils (0.0 - 2.0 %) 3 H Platelet Estimate (ADEQUATE) DECREASED DECREASED Polychromasia 1+ Hypochromic-Microcytic 2+ 1+ Anisocytosis 1+ 1+ Macrocytic Cells 1+ 2+ PUBS MCHC (33.0 - 37.0 G/DL) 32.2 L 32.7 L 07/07 07/07 07/07 1750 0644 0644 Chemistry Sodium (137 - 145 mmol/L) 140 Cancelled 141 Potassium (3.5 - 5.1 mmol/L) 3.9 Cancelled 2.7 *L Chloride (98 - 107 mmol/L) 101 Cancelled 94 L Carbon Dioxide (22 - 30 mmol/L) 30 Cancelled 36 H Anion Gap (5 - 16) 9 Cancelled 11 BUN (7 - 17 mg/dL) 17 Cancelled 17 Creatinine (0.5 - 1.0 mg/dL) 1.0 Cancelled 0.9 Estimated GFR (>60 ml/min) 57 L > 60 BUN/Creatinine Ratio (7 - 25 %) 17.0 Cancelled 18.9 Magnesium (1.6 - 2.3 mg/dL) 1.9 Cancelled 1.2 L Iron (37 - 170 ug/dL) 94 TIBC (265 - 497 ug/dL) 208 L Ferritin (11.1 - 264 ng/mL) 112.0 Total Bilirubin (0.2 - 1.3 mg/dL) 10.3 H Direct Bilirubin (< 0.4 mg/dL) 8.8 H AST (14 - 36 U/L) 72 H ALT (9 - 52 U/L) 21 Alkaline Phosphatase (<127 U/L) 230 H Total Protein (6.3 - 8.2 g/dL) 6.4 Albumin (3.5 - 5.0 g/dL) 2.6 L Hematology CBC w Diff MAN DIFF ORDERED WBC (4.8 - 10.8 /CUMM) 9.8 RBC (4.20 - 5.40 /CUMM) 1.94 L Hgb (12.0 - 16.0 G/DL) 7.6 L Hct (37 - 47 %) 22.7 L MCV (81.0 - 99.0 FL) 117.3 H MCH (27.0 - 31.0 PG) 39.4 H RDW (11.5 - 14.5 %) 20.8 H Plt Count (130 - 400 /CUMM) 156 MPV (7.4 - 10.4 FL) 8.4 Segmented Neutrophils (42.2 - 75.2 %) 82 H Band Neutrophils (0.0 - 5.0 %) 2 Lymphocytes (20.5 - 51.1 %) 12 L Monocytes (1.7 - 9.3 %) 4 Platelet Estimate (ADEQUATE) VERIFIED BY SMEAR Hypochromic-Microcytic 1+ Poikilocytosis 1+ Anisocytosis 1+ Macrocytic Cells 2+ Target Cells FEW Stomatocytes 1+ PUBS MCHC (33.0 - 37.0 G/DL) 33.6 Retic Count (0.5 - 2.0 %) 4.83 H 07/07 07/07 07/06 07/06 0300 0256 2245 2043 Chemistry Sodium (137 - 145 mmol/L) 140 Potassium (3.5 - 5.1 mmol/L) 2.3 *L Chloride (98 - 107 mmol/L) 92 L Carbon Dioxide (22 - 30 mmol/L) 37 H Anion Gap (5 - 16) 11 BUN (7 - 17 mg/dL) 16 Creatinine (0.5 - 1.0 mg/dL) 0.9 Estimated GFR (>60 ml/min) > 60 BUN/Creatinine Ratio (7 - 25 %) 17.8 Lactic Acid (0.7 - 2.1 mmol/L) 1.2 1.1 Phosphorus (2.5 - 4.5 mg/dL) 3.0 Magnesium (1.6 - 2.3 mg/dL) 1.2 L Troponin I (< 0.11 ng/ml) < 0.01 Alpha Fetoprotein Pending Coagulation PT (9.4 - 12.5 SEC) 21.4 H INR (0.90 - 1.19) 2.05 H APTT (25 - 37 SEC) 35 07/06 07/06 07/06 1921 1851 0300 Chemistry Sodium (137 - 145 mmol/L) 138 Cancelled Potassium (3.5 - 5.1 mmol/L) 2.0 *L Cancelled Chloride (98 - 107 mmol/L) 87 L Cancelled Carbon Dioxide (22 - 30 mmol/L) 40 H Cancelled Anion Gap (5 - 16) 11 Cancelled BUN (7 - 17 mg/dL) 17 Cancelled Creatinine (0.5 - 1.0 mg/dL) 1.0 Cancelled Estimated GFR (>60 ml/min) 57 L BUN/Creatinine Ratio (7 - 25 %) 17.0 Cancelled Glucose (65 - 99 mg/dL) 117 H Calcium (8.4 - 10.2 mg/dL) 7.9 L Magnesium (1.6 - 2.3 mg/dL) 0.8 *L Total Bilirubin (0.2 - 1.3 mg/dL) 10.2 H Direct Bilirubin (< 0.4 mg/dL) 8.5 H AST (14 - 36 U/L) 76 H ALT (9 - 52 U/L) 20 Alkaline Phosphatase (<127 U/L) 269 H Total Protein (6.3 - 8.2 g/dL) 7.0 Albumin (3.5 - 5.0 g/dL) 2.9 L Globulin (1.9 - 4.2 gm/dL) 4.1 Albumin/Globulin Ratio (1.1 - 2.2 %) 0.7 L Lipase (23 - 300 U/L) 77 Folate (2.76 - 20.0 ng/mL) 3.7 Hematology CBC w Diff MAN DIFF ORDERED WBC (4.8 - 10.8 /CUMM) 14.6 H RBC (4.20 - 5.40 /CUMM) 2.32 L Hgb (12.0 - 16.0 G/DL) 9.0 L Hct (37 - 47 %) 26.9 L MCV (81.0 - 99.0 FL) 116.1 H MCH (27.0 - 31.0 PG) 38.9 H RDW (11.5 - 14.5 %) 20.5 H Plt Count (130 - 400 /CUMM) 198 MPV (7.4 - 10.4 FL) 8.6 Segmented Neutrophils (42.2 - 75.2 %) 85 H Band Neutrophils (0.0 - 5.0 %) 8 H Lymphocytes (20.5 - 51.1 %) 3 L Monocytes (1.7 - 9.3 %) 4 Platelet Estimate (ADEQUATE) ADEQUATE Polychromasia 1+ Poikilocytosis 1+ Anisocytosis 1+ Macrocytic Cells 2+ Stomatocytes 1+ PUBS MCHC (33.0 - 37.0 G/DL) 33.5 Serology Hepatitis A IgM Ab (NONREACTIVE) NONREACTIVE Hep Bs Antigen (NONREACTIVE) NONREACTIVE Hep B Core IgM Ab Conf (NONREACTIVE) NONREACTIVE Hepatitis C Antibody (NONREACTIVE) NONREACTIVE HIV 1&2 Ab Western Blot (NONREACTIVE) NONREACTIVE Toxicology Methadone Screen Cancelled Barbiturate Screen Cancelled Ur Phencyclidine Scrn Cancelled Amphetamines Screen Cancelled U Benzodiazepines Scrn Cancelled Urine Cocaine Screen Cancelled Urine Cannabis Screen Cancelled Serum Alcohol (<10 MG/DL) < 10.0 Urines Urine Color Cancelled Urine Clarity Cancelled Urine pH Cancelled Ur Specific [place] Cancelled Urine Protein Cancelled Urine Ketones Cancelled Urine Nitrite Cancelled Urine Bilirubin Cancelled Urine Urobilinogen Cancelled Ur Leukocyte Esterase Cancelled Ur Microscopic Cancelled Urine Hemoglobin Cancelled Urine Glucose Cancelled Imaging/Other Studies: CT scan without contrast IMPRESSION: 1. Chronic hepatosplenomegaly and hepatic cirrhosis. 2. Gallbladder contains sludge. No calcified stones or wall edema. No CT imaging evidence of acute cholecystitis. 3. Colonic diverticulosis without diverticulitis. 4. Mild aneurysmal dilatation of the infrarenal abdominal aorta. 5. The finding of gas within the urinary bladder requires clinical correlation; query whether there has been any recent bladder catheterization Ultrasound IMPRESSION: 1. Hepatomegaly with heterogeneously increased echogenicity but relatively smooth borders. This is a nonspecific finding but suggestive of underlying liver disease. There is a more focal hypoechoic region measuring approximately 5 cm within the right hepatic lobe. It is unclear whether this represents a true lesion or just focal region of heterogeneous tissue. Given abnormal liver findings, a multi phase CT or MRI of the liver is recommended to exclude malignancy. 2. The gallbladder contains echogenic bile and there is a small amount of pericholecystic fluid adjacent to the liver. I suspect this represents changes secondary to adjacent liver disease. Clinical correlation recommended. Assessment/Plan Assessment/Recommendations: 57-year-old white female with probable alcoholic cirrhosis, and certainly with alcoholic hepatitis, who presents with diarrhea, dehydration, and electrolyte abnormalities. There is synthetic dysfunction of the liver, hyperbilirubinemia, and borderline thrombocytopenia. The patient is anemic, but there is no described overt bleeding. There is no ascites on imaging. There is a question of a liver lesion on ultrasound. Recommendations * Check stool guaiacs, B12, RBC folate. * When GFR normalizes, consider triphasic CT scan of the liver or MRI with mass protocol/gadolinium * Check alpha-fetoprotein * Await results of stool culture and C. difficile toxin. * Monitor electrolytes, magnesium, calcium, phosphorus * Vitamin K 10 mg subcutaneous; follow-up INR. * No corticosteroids or pentoxifylline at this time Consult Acknowledgment - Thank you for your consult request.
[2017-07-08 14:37] VITALS: BP 110/54
--- NOTE | 2017-07-08 16:46 | PN- Student ---
Subjective Subjective: Patient states that she is more comfortable today. She has had an increased appetite and has been tolerating PO diet, though not eating much. She had several episodes of diarrhea yesterday but none this morning. Denies bloody stools. She is still very drowsy and states being tired all the time. Denies CARIAS, dizziness, abdominal pain, n/v, CP, or SOB. Objective Objective: Vital Signs Date Time Temp Pulse Resp B/P B/P Pulse O2 O2 Flow FiO2 Mean Ox Delivery Rate 07/08 1437 99.0 90 20 110/54 97 Nasal 2.0L Cannula 07/08 1130 99.8 92 18 108/50 95 Nasal 2.0L Cannula 07/08 0800 Nasal 2.0L Cannula 07/08 0630 99.0 91 20 106/54 95 07/08 0000 Nasal 2.0L Cannula 07/08 0000 99.2 91 20 118/56 07/07 2300 99.2 91 20 118/56 97 Intake & Output 07/08 1600 07/08 0800 07/08 0000 Intake Total 560 120 200 Output Total Balance 560 120 200 Intake, Blood 200 Product Intake, Oral 360 120 200 Number 1 1 Bowel Movements Physical Exam General: AOx3, cooperative, NAD HEENT: AT/NC, PERRLA, icteric sclera bilaterally, EOMI. Mucosa dry. Neck: Supple, no JVD, no LAD Heart: RRR, normal S1, S2, mild systolic murmur, no rubs or gallops Repiratory: Lungs CTA bilaterally, no wheezes, rales, or rhonchi Abdominal: Mildly distended, caput medusa, normoactive bowel sounds. Soft, NTTP. Hepatomegaly. Skin: Diffuse jaundice. Scattered spider angiomas on anterior chest. Extremities: Hands and upper extremeites exhibit mild tremor. No LE edema. Negative asterixis. 2x2 area of lichenification with central darkening/ hyperpigmentation on right medial foot. Bilateral halux valgus of great toe. Neuro: Drowsy, no focal neuro deficits. Results Results: Laboratory Tests 07/08/17 1125: CBC w Diff MAN DIFF ORDERED, RBC 1.72 L, MCV 119.6 H, MCH 38.5 H, RDW 19.8 H , MPV 7.8, Segmented Neutrophils 66, Band Neutrophils 7 H, Lymphocytes 15 L, Monocytes 8, Eosinophils 1, Basophils 3 H, Platelet Estimate DECREASED, Polychromasia 1+, Hypochromic-Microcytic 2+, Anisocytosis 1+, Macrocytic Cells 1 +, PUBS MCHC 32.2 L 07/08/17 0615: Anion Gap 9, Estimated GFR 51 L, BUN/Creatinine Ratio 14.5, Magnesium 1.5 L, Total Bilirubin 10.4 H, Direct Bilirubin 8.8 H, AST 95 H, ALT 22, Alkaline Phosphatase 203 H, Total Protein 5.8 L, Albumin 2.3 L, Vitamin B12 > 1000 H, CBC w Diff MAN DIFF ORDERED, RBC 1.74 L, MCV 119.2 H, MCH 39.0 H, RDW 20.4 H , MPV 8.1, Segmented Neutrophils 73, Band Neutrophils 3, Lymphocytes 14 L, Monocytes 9, Eosinophils 1, Platelet Estimate DECREASED, Hypochromic-Microcytic 1+, Anisocytosis 1+, Macrocytic Cells 2+, PUBS MCHC 32.7 L 07/07/17 1750: Anion Gap 9, Estimated GFR 57 L, BUN/Creatinine Ratio 17.0, Magnesium 1.9 07/07/17 0300: Alpha Fetoprotein Pending Blood cultures show no growth after one day. Stool cultures show mixed sheila after one day but are negative for Shiga toxin 1 and 2 ([facility]). Assessment/Plan Assessment: 57 y/o female with PMHx significant for depression, PUD, HLD, and alcohol abuse presented to the ED with multiple complaints including diarrhea for the last 10 days with 5-6 bowel movements per day, diffuse abdominal pain, nausea, vomimiting, and decreased appetite, admitted to telemetry for electrolyte abnormalities. Patient also found to have liver cirrhosis on CT and intrahepatic mass on ultrasound. Plan: Electrolyte Abnormalities secondary to Diarrhea * Continue to repleat magnesium and potassium PRN * Continue prism inspector for electrolyte associated cardiac concerns * Discontinue loperamide * Stool and blood cultures negative. C. diff pending Liver Cirrhosis/Mass found on Ultrasound * CT scan revealed signifcant hepatomegaly and hepatic cirrhosis. * MELD score of 22 and Maddrey's Discriminant Function of 58.6 * Abdominal ultrasound identified hypoechoic 5cm intrahepatic mass of the right hepatic lobe * Multiphase CT with contrast or MRI recommended * Patient seen by Dr. Whatley from GI today who recommended checking stool guiac, B12, and RBC folate. Also would like to continue with plan for triphasic CT scan of liver or MRI with mass protocol/gadolinium when GFR stabilizes. * Per GI, no corticosteroids or pentoxifylline at this time. * INR elevated at 2.0 -- Per GI, give Vitamin K 10 mg SQ and follow up on INR Macrocytic Anemia * Hemoglobin decreased from 7.6 to 6.6 -- Patient * MCV elevated: 117.3 to 119.6. Retic count 4.83. * Anemia may be secondary to alcohol use or dilution from IV fluids but will rule out possibility of slow GI bleed -- Check stool guiac. * Continue to monitor CBC Alcoholism * Monitor CIWA scores * Ativan PRN * Psych consult pending * Continue folate, thiamine, and multivitamins as needed DVT Prophylaxis: INR elevated at 2.0 -- Continue ALPS Code status: Full Code Diet: Regular JENNIFER [place]
[2017-07-08 19:31] LABS: ABSOLUTE BASOPHIL COUNT 0 /CUMM (0.0-0.2); ABSOLUTE EOSINOPHIL COUNT 0.1 /CUMM (0.0-0.7)
[2017-07-08 19:38] LABS: ABSOLUTE GRANULOCYTE CT 5.3 /CUMM (1.4-6.5); ABSOLUTE LYMPH COUNT 2.6 /CUMM (1.2-3.4); BASOPHIL % 0.3 % (0.0-2.0); GRANULOCYTE % 58.9 % (42.2-75.2); MEAN CORPUSCULAR HGB 37.5 PG (27.0-31.0); MEAN CORPUSCULAR HGB CONC 33.4 G/DL (33.0-37.0); MEAN PLATELET VOLUME 8.2 FL (7.4-10.4); PLATELET COUNT 144 /CUMM (130-400); RBC DISTRIBUTION WIDTH 25.9 % (11.5-14.5); RED BLOOD CELL CT 2.04 /CUMM (4.20-5.40)
[2017-07-08 19:41] LABS: MEAN CORPUSCULAR VOLUME 112.5 FL (81.0-99.0)
[2017-07-08 22:38] VITALS: BP 104/52
[2017-07-09 07:02] VITALS: BP 92/47
[2017-07-09 07:56] LABS: MEAN CORPUSCULAR HGB 37.9 PG (27.0-31.0); MEAN CORPUSCULAR HGB CONC 33.5 G/DL (33.0-37.0); MEAN CORPUSCULAR VOLUME 113.1 FL (81.0-99.0); MEAN PLATELET VOLUME 7.7 FL (7.4-10.4); PLATELET COUNT 137 /CUMM (130-400); RBC DISTRIBUTION WIDTH 24.7 % (11.5-14.5); RED BLOOD CELL CT 2.03 /CUMM (4.20-5.40)
[2017-07-09 08:00] VITALS: BP 94/60
--- NOTE | 2017-07-09 09:16 | PN- Housestaff ---
Dixie Osborn MD 07/09/17 0915: Subjective Follow-up For: Hyperbilirubinemia electrolyte abnormalities ethanol abuse Tele-Events Since Last Visit: Normal sinus rhythm at a rate of 85-91 Subjective: Patient was seen and examined bedside. Patient states that she feels weak. Patient had an episode of diarrhea this morning. Otherwise she has no other complaints. Review of Systems Constitutional: Reports: weakness. EENTM: Reports: no symptoms. Cardiovascular: Reports: no symptoms. Respiratory: Reports: no symptoms. Gastrointestinal: Reports: diarrhea. Genitourinary: Reports: no symptoms. Musculoskeletal: Reports: no symptoms. Skin: Reports: no symptoms. Neurological/Psychological: Reports: tremors. Hematologic/Endocrine: Reports: no symptoms. Immunologic/Allergic: Reports: no symptoms. Objective Last 24 Hrs of Vital Signs/I&O Vital Signs Date Time Temp Pulse Resp B/P B/P Pulse O2 O2 Flow FiO2 Mean Ox Delivery Rate 07/09 1600 Nasal 2.0L Cannula 07/09 1425 98.5 94 20 110/60 92 Room Air 07/09 1200 84 20 110/58 07/09 0800 98.4 80 16 94/60 07/09 0800 95 Nasal 2.0L Cannula 07/09 0702 99.6 90 20 92/47 93 07/09 0000 Nasal 2.0L Cannula 07/08 2238 99.5 88 20 104/52 97 Intake & Output 07/09 1600 07/09 0800 07/09 0000 Intake Total 600 100 Output Total Balance 600 100 Intake, IV 100 Intake, Oral 600 Physical Exam General Appearance: Alert, Oriented X3, Cooperative, No Acute Distress Skin: No Rashes, No Breakdown, No Significant Lesion Skin Temp/Moisture Exam: Warm/Dry Sepsis Skin Exam (color): Normal for Ethnicity HEENT: Atraumatic Neck: Supple, No JVD Cardiovascular: Regular Rate, Normal S1, Normal S2, No Murmurs Lungs: Clear to Auscultation, Normal Air Movement Abdomen: Normal Bowel Sounds, Soft, No Tenderness Neurological: Normal Speech Extremities: No Clubbing, No Cyanosis, No Edema, Normal Pulses, No Tenderness/ Swelling Vascular: Normal Pulses, Pulses Symmetrical Current Medications: Current Medications Sig/Miguel Start time Last Medication Dose Route Stop Time Status Admin Acetaminophen 650 MG Q6P PRN 07/07 0200 AC PO Escitalopram Oxalate 20 MG DAILY 07/07 1000 AC 07/09 PO 1038 Folic Acid 1 MG DAILY 07/07 1000 AC 07/09 PO 1038 Hydrocodone Bitart/ 1 TAB Q6P PRN 07/07 0200 AC Acetaminophen PO Lorazepam 2 MG Q12 07/090 AC 07/09 PO 2036 Lorazepam 2 MG Q6 07/06 2359 DC 07/09 PO 0009 Lorazepam 1 MG Q1P PRN 07/06 2345 AC IV Magnesium Sulfate 1 GM ONCE ONE 07/09 183 AC Dextrose/Water 100 ML IV 07/09 222 Morphine Sulfate 2 MG Q4P PRN 07/07 020 AC IV Multivitamins 1 TAB DAILY 07/07 1000 AC 07/09 PO 1038 Omeprazole 40 MG DAILY AC 07/07 0700 AC 07/09 PO 1039 Thiamine HCl 100 MG DAILY 07/09 1000 AC 07/09 PO 1038 Thiamine HCl 300 MG TID 07/07 1000 DC 07/08 PO 07/08 2201 2234 Trimethobenzamide HCl 200 MG TID PRN 07/07 0300 AC IM Last 24 Hrs of Lab/Doug Results Last 24 Hrs of Labs/Mics: Laboratory Tests 07/09/17 0625: Anion Gap 8, Estimated GFR 57 L, BUN/Creatinine Ratio 16.0, Calcium 8.5, Phosphorus 2.8, Magnesium 1.5 L, PT 18.0 H, INR 1.72 H, CBC w Diff MAN DIFF ORDERED, RBC 2.03 L, MCV 113.1 H, MCH 37.9 H, RDW 24.7 H, MPV 7.7, Segmented Neutrophils 69, Band Neutrophils 2, Lymphocytes 15 L, Monocytes 12 H, Eosinophils 2, Platelet Estimate ADEQUATE, Polychromasia 1+, Hypochromic- Microcytic 1+, Anisocytosis 2+, Macrocytic Cells 2+, Target Cells FEW, PUBS MCHC 33.5 Orders CIWA Score (last 24 hrs): 5 Assessment/Plan Assessment: Mrs. Franklin is a 57-year-old female with past medical history of hyperlipidemia, alcohol abuse, depression, peptic ulcer disease who presents with complaints of stool incontinence and poor appetite. Assessment and Plan: Diarrhea and Electrolyte Abnormalities: Patient came in with severe hypokalemia and hypomagnesemia likely secondary to severe diarrhea and alcoholism. She continues to have loose bowel movements though they have decreased in frequency. * Will continue repletion of K and Mg as necessary. * Discontinue Loperamide. * Will follow stool studies and c.diff. Liver Cirrhosis: Her CT scan shows chronic hepatosplenomegaly and hepatic cirrhosis likely secondary to heavy alcohol use. Her lab studies shows elevated INR of 2.0 and direct bilirubin of 8. Abdominal U/S shows 5 cm hypoechoic region within the right hepatic lobe concerning for malignancy. * She has a high MELD score of 22 points and Maddrey's Discriminamt Function of 58.6 points. Both indicate a fairly poor prognosis. * Will motley off steroids for now. * Further imaging with MRI or CT contrast to assess the lesion, once GFR stabilizes. * AFP pending * RBC Folate - pending Anemia: * Her Hb dropped further to 6.6. She received 1 unit of packed red blood cells yesterday. * Will repeat CBC after blood transfusion. * Her MCV is elevated likely due to alcohol use. * continue folate supplementation * Will monitor CBC History of Alcohol Use: * Ativan per CIWA * Ativan standing dose 2 mg twice a day by mouth * Continue folate, thiamine, multivitamins supplementation. DVT Prophylaxis: Elevated INR of 2.0. Will continue with ALPS * One dose of SC Vit K 10mg * Repeat INR tomorrow. Diet: Regular Code: Full Code Problem List: 1. Alcohol withdrawal 2. Diarrhea Pain Ratin Pain Location: none Pain Goal: Remain pain free Pain Plan: Tylenol Tomorrow's Labs & Rationales: cbc bep Kuldeep Stratton 07/09/17 1356: Attending MD Review Statement Attending Statement Attending MD Statement: examined this patient, discuss w/resident/PA/SORT MANAGER, agreed w/resident/PA/SORT MANAGER, discussed with family, reviewed EMR data (avail), discussed with nursing, discussed with case mgmt, reviewed images, amended to note Attending Assessment/Plan: 57 o/f with pmh of alcoholism, cirrhosis, hepatosplenomegaly comes with diarrhea and severe electrlotyle abnormalities inclduing hypokalemia, hypomagenesemia needing admission and watchful for delirium tremens with CIWA protocol now found to have mass in liver solitary liver lesion and hyperbilirbinemia total bili 10. cirrhosis: Plan is to replace elcetrolytes and working diagnosis of diarrhea requiring IVF work up wit follow up labs. Ativan as per CIWA and monitor hemodynamics. Taper Ativan. Anemia hb 6.6 s/p 1 unit of prbc transfusion likely anemia of chronic disease, no evidence of bleeding, serial cbc monitoring, ppi , transfuse as needed, GI eval ongoing. [place] Hyperbilirubinemia: Patient RUQ USG reviewed solitary liver lesion about 5 cm, GI pending. CT triphasic protocol as per GI. f/u AFP. gi/dvt prophyalxis. full code.
[2017-07-09 12:00] VITALS: BP 110/58
[2017-07-09 14:25] VITALS: BP 110/60
--- NOTE | 2017-07-09 16:03 | CT SCAN REPORT ---
EXAMINATION: CT ABDOMEN AND PELVIS WITHOUT AND WITH CONTRAST CLINICAL INFORMATION: Liver mass. COMPARISON: CT abdomen and pelvis 07/06/2017, 07/06/2011. Ultrasound of abdomen 07/07/2017 TECHNIQUE: Multidetector volumetric imaging was performed of the abdomen and pelvis prior to and after IV administration of 95 mL of Optiray 320 intravenous contrast. Sagittal and coronal reformatted images were obtained on the technologist's workstation. DLP: 622.36 mGy-cm FINDINGS: LUNG BASES: Small bilateral pleural effusions. Dependent atelectasis at both lung bases. LIVER, GALLBLADDER, AND BILIARY TREE: Liver is enlarged. Right lobe liver measures 18.2 cm superior inferior. The liver has a lobular contour. The liver parenchyma is heterogeneous in density. Findings consistent with cirrhosis. No suspicious liver lesion. On the ultrasound study of 07/07/2017, there was question of a lesion measuring 5 cm in the right hepatic lobe. This just represents a lobular portion of the right lobe of liver and not a hepatic mass. The gallbladder is unremarkable with no evidence of radiopaque gallstones, gallbladder wall thickening, or obvious pericholecystic inflammatory changes. PANCREAS: Unremarkable. SPLEEN: Spleen is enlarged. Spleen measures 18.1 cm superior inferior. ADRENAL GLANDS: Unremarkable. KIDNEYS AND URETERS: The kidneys are normal in size, shape, and attenuation. No hydronephrosis, hydroureter, or calculi seen. No perinephric stranding. BLADDER: Unremarkable. GASTROINTESTINAL TRACT: There is diverticulosis of left colon and sigmoid. A few diverticula of the right colon. No diverticulitis. No acute change of the bowel. No bowel obstruction. No bowel wall thickening or edema. Moderate volume of stool in the colon. The appendix is normal. Small bowel loops are unremarkable. MESENTERY: Small volume of abdominal ascites. No inflammation. No free air. ABDOMINAL WALL: No significant hernia is appreciated. LYMPH NODES: Normal. VASCULAR: Atherosclerotic vascular wall calcification of the aorta and iliac arteries. There is a subtle fusiform aneurysm of the distal aorta. This measures 2.8 cm AP. PELVIC VISCERA: Unremarkable. OSSEOUS STRUCTURES: Multilevel endplate degenerative spondylosis with endplate spurs of the lumbar vertebrae. Old healed fractures of the bilateral pubic rami. IMPRESSION: 1. Small bilateral pleural effusions with bibasilar atelectasis. 2. Cirrhosis of liver with hepatosplenomegaly. Small volume of abdominal ascites. No focal liver lesion. 3. Diverticulosis of colon. No acute abnormality of the bowel. 4. 2.8 cm abdominal aortic aneurysm.
[2017-07-09 22:14] VITALS: BP 112/54
[2017-07-10 06:56] VITALS: BP 112/56
[2017-07-10 07:58] LABS: HEMATOCRIT 23.5 % (37-47); MEAN CORPUSCULAR HGB 37.8 PG (27.0-31.0); MEAN CORPUSCULAR HGB CONC 33.6 G/DL (33.0-37.0); MEAN CORPUSCULAR VOLUME 112.3 FL (81.0-99.0); MEAN PLATELET VOLUME 7.8 FL (7.4-10.4); PLATELET COUNT 144 /CUMM (130-400); RBC DISTRIBUTION WIDTH 23.8 % (11.5-14.5); WHITE BLOOD CELL COUNT 8.2 /CUMM (4.8-10.8)
[2017-07-10 08:19] LABS: PT 16.3 SEC (9.4-12.5)
--- NOTE | 2017-07-10 08:46 | PN- Housestaff ---
Lavelle PAULSON,Karon 07/10/17 0845: Subjective Follow-up For: Alcohol-induced cirrhosis Left right abnormality secondary to diarrhea and dehydration Complaints: no complaints Tele-Events Since Last Visit: Normal sinus rhythm, heart rate between 80-95 Subjective: Patient is seen and examined at the bedside. She does not have any active complaints. Review of Systems Constitutional: Denies: no symptoms. Objective Last 24 Hrs of Vital Signs/I&O Vital Signs Date Time Temp Pulse Resp B/P B/P Pulse O2 O2 Flow FiO2 Mean Ox Delivery Rate 07/10 1600 Nasal 2.0L Cannula 07/10 1506 100.1 96 18 104/50 96 07/10 0800 Nasal 2.0L Cannula 07/10 0656 99.2 93 18 112/56 94 Nasal 2.0L Cannula 07/10 0000 Nasal 2.0L Cannula 07/09 2214 100.2 91 20 112/54 93 Nasal 2.0L Cannula Intake & Output 07/10 1600 07/10 0800 07/10 0000 Intake Total 800 110 200 Output Total Balance 800 110 200 Intake, IV 0 10 Intake, Oral 800 100 200 Number 2 Bowel Movements Physical Exam General Appearance: Alert, Oriented X3, Cooperative, No Acute Distress Skin: icteric,hyperpigmented patches over the skin Cardiovascular: Normal S1, Normal S2 Lungs: Clear to Auscultation, Normal Air Movement Abdomen: Soft, No Tenderness Extremities: No Clubbing, No Cyanosis, No Edema, flapping tremors present Vascular: Normal Pulses, Pulses Symmetrical Current Medications: Current Medications Sig/Miguel Start time Last Medication Dose Route Stop Time Status Admin Acetaminophen 650 MG Q6P PRN 07/070 AC PO Escitalopram Oxalate 20 MG DAILY 07/07 1000 AC 07/10 PO 0820 Folic Acid 1 MG DAILY 07/07 1000 AC 07/10 PO 0820 Hydrocodone Bitart/ 1 TAB Q6P PRN 07/07 020 AC Acetaminophen PO Lorazepam 1.5 MG Q12 07/10 2200 AC PO Lorazepam 2 MG Q12 07/09 2200 DC 07/10 PO 0823 Lorazepam 1 MG Q1P PRN 07/06 2345 AC IV Magnesium Sulfate 1 GM ONCE ONE 07/10 1030 DC 07/10 Dextrose/Water 100 ML IV 07/10 1429 1801 Magnesium Sulfate 1 GM ONCE ONE 07/10 1030 DC 07/10 Dextrose/Water 100 ML IV 07/10 1429 1437 Magnesium Sulfate 1 GM ONCE ONE 07/09 1830 DC 07/09 Dextrose/Water 100 ML IV 07/099 1999 Morphine Sulfate 2 MG Q4P PRN 07/07 0200 AC IV Multivitamins 1 TAB DAILY 07/07 1000 AC 07/10 PO 0820 Omeprazole 40 MG DAILY AC 07/07 0700 AC 07/10 PO 0601 Potassium Chloride 40 MEQ DAILY 07/10 1804 AC PO Potassium Chloride 40 MEQ ONCE ONE 07/10 1030 CAN PO 07/10 1031 Thiamine HCl 100 MG DAILY 07/09 1000 AC 07/10 PO 0820 Trimethobenzamide HCl 200 MG TID PRN 07/07 0300 AC IM Last 24 Hrs of Lab/Doug Results Last 24 Hrs of Labs/Mics: Laboratory Tests 07/10/17 0630: Anion Gap 11, Estimated GFR 57 L, BUN/Creatinine Ratio 15.0, Magnesium 1.2 L, PT 16.3 H, INR 1.56 H, CBC w Diff MAN DIFF ORDERED, RBC 2.10 L, MCV 112.3 H, MCH 37.8 H, RDW 23.8 H, MPV 7.8, Segmented Neutrophils 72, Lymphocytes 14 L, Monocytes 10 H, Eosinophils 4, Platelet Estimate ADEQUATE, Polychromasia 1+, Macrocytic Cells 2+, Stomatocytes 1+, PUBS MCHC 33.6 Assessment/Plan Assessment: Pateint is a 57-year-old female with past medical history of hyperlipidemia, alcohol abuse, depression, peptic ulcer disease who presents with complaints of stool incontinence and poor appetite. Assessment and Plan: Alcoholic cirrhosis with diarrhea, leading to electrolyte abnormality - * We will continue to supplement electrolytes and monitor it. * We will check stool for guaiac, to r/o GI bleed ? leading to anemia. * We'll follow alpha-fetoprotein, RBC folate * We will start patient on tablet rifaximin 550 milligrams twice a day * She has a high MELD score of 22 points and Maddrey's Discriminamt Function of 58.6 points. Both indicate a fairly poor prognosis. * Bone to corticosteroid or pentoxifylline which present Alcohol use disorder * Ativan per CIWA * Tapered Ativan to 1.5 milligrams every 12 * Continue folate, thiamine, multivitamins supplementation. Diet: Diet for hepatic cirrhosis/ placed nutrition consult Code status - FC Problem List: 1. Diarrhea 2. ALC (alcoholic liver cirrhosis) Pain Ratin Pain Location: n/a Pain Goal: Remain pain free Pain Plan: No NSAIDs Tomorrow's Labs & Rationales: F/U cbc, bep, Mg, PT/INR Kuldeep Pérez 07/10/17 1342: Attending MD Review Statement Attending Statement Attending MD Statement: examined this patient, discuss w/resident/PA[employer], agreed w/resident/PA[employer], discussed with family, reviewed EMR data (avail), discussed with nursing, discussed with case mgmt, reviewed images, amended to note Attending Assessment/Plan: 57 o/f with pmh of alcoholism, cirrhosis, hepatosplenomegaly comes with diarrhea and severe electrlotyle abnormalities inclduing hypokalemia, hypomagenesemia needing admission and watchful for delirium tremens with CIWA protocol now found to have hyperbilirbinemia total bili 10. cirrhosis: Plan is to replace elcetrolytes and working diagnosis of diarrhea requiring IVF work up wit follow up labs. Ativan as per CIWA and monitor hemodynamics. Taper Ativan. Anemia hb 7.7 s/p 1 unit of prbc transfusion likely anemia of chronic disease, no evidence of bleeding, serial cbc monitoring, ppi , transfuse as needed, GI eval ongoing. Guaic Hyperbilirubinemia: Patient RUQ USG reviewed solitary liver lesion about 5 cm, GI pending. CT triphasic protocol as per GI did not show mass. f/u AFP. gi/dvt prophyalxis. full code.
[2017-07-10 15:06] VITALS: BP 104/50
--- NOTE | 2017-07-10 15:30 | PN- Gastroenterology ---
Assessment/Plan Assessment/Recommendations: 57-year-old white female with alcoholic cirrhosis / hepatitis, who presents with diarrhea improved (negative stool culture and C. difficile toxin). There is synthetic dysfunction of the liver, hyperbilirubinemia, and borderline thrombocytopenia. The patient is anemic, but there is no described overt bleeding. Stool guaiacs have not been performed. There is minimal ascites on imaging. There is no liver lesion on multiphasic CT. Recommendations * Check stool guaiacs * Await alpha-fetoprotein * Replete magnesium parenterally (oral will exacerbate diarrhea) * No corticosteroids or pentoxifylline * Consider rifaximin 550 mg by mouth twice a day for what is likely covert encephalopathy. Lactulose contraindicated given diarrhea. Subjective Subjective: The patient had 1 bowel movement today. She described it as watery. IPOC documentation describes it as soft and brown, and no guaiac was performed. The patient's mentation is sluggish. She denies nausea, abdominal pain. She claims she ate well. Objective Vital Signs and I&Os Vital Signs Date Time Temp Pulse Resp B/P B/P Pulse O2 O2 Flow FiO2 Mean Ox Delivery Rate 07/10 1506 100.1 96 18 104/50 96 07/10 0800 Nasal 2.0L Cannula 07/10 0656 99.2 93 18 112/56 94 Nasal 2.0L Cannula 07/10 0000 Nasal 2.0L Cannula 07/09 2214 100.2 91 20 112/54 93 Nasal 2.0L Cannula 07/09 1600 Nasal 2.0L Cannula Intake & Output 07/10 1600 07/10 0400 07/09 1600 07/09 0400 07/08 1600 07/08 0400 Intake Total 910 200 600 100 680 200 Output Total Balance 910 200 600 100 680 200 Intake, Blood 200 Product Intake, IV 10 100 Intake, Oral 900 200 600 480 200 Number 2 1 1 Bowel Movements Physical Exam: Mentation sluggish. Appears oriented. Jaundiced. No asterixis. Abdomen is soft, nontender. No edema. Results Pertinent Lab Results: Laboratory Tests 07/10 07/09 0630 0625 Chemistry Sodium (137 - 145 mmol/L) 136 L 135 L Potassium (3.5 - 5.1 mmol/L) 3.5 3.6 Chloride (98 - 107 mmol/L) 97 L 100 Carbon Dioxide (22 - 30 mmol/L) 29 28 Anion Gap (5 - 16) 11 8 BUN (7 - 17 mg/dL) 15 16 Creatinine (0.5 - 1.0 mg/dL) 1.0 1.0 Estimated GFR (>60 ml/min) 57 L 57 L BUN/Creatinine Ratio (7 - 25 %) 15.0 16.0 Calcium (8.4 - 10.2 mg/dL) 8.5 Phosphorus (2.5 - 4.5 mg/dL) 2.8 Magnesium (1.6 - 2.3 mg/dL) 1.2 L 1.5 L Coagulation PT (9.4 - 12.5 SEC) 16.3 H 18.0 H INR (0.90 - 1.19) 1.56 H 1.72 H Hematology CBC w Diff MAN DIFF ORDERED MAN DIFF ORDERED WBC (4.8 - 10.8 /CUMM) 8.2 8.0 RBC (4.20 - 5.40 /CUMM) 2.10 L 2.03 L Hgb (12.0 - 16.0 G/DL) 7.9 L 7.7 L Hct (37 - 47 %) 23.5 L 23.0 L MCV (81.0 - 99.0 FL) 112.3 H 113.1 H MCH (27.0 - 31.0 PG) 37.8 H 37.9 H RDW (11.5 - 14.5 %) 23.8 H 24.7 H Plt Count (130 - 400 /CUMM) 144 137 MPV (7.4 - 10.4 FL) 7.8 7.7 Segmented Neutrophils (42.2 - 75.2 %) 72 69 Band Neutrophils (0.0 - 5.0 %) 2 Lymphocytes (20.5 - 51.1 %) 14 L 15 L Monocytes (1.7 - 9.3 %) 10 H 12 H Eosinophils (0 - 5.0 %) 4 2 Platelet Estimate (ADEQUATE) ADEQUATE ADEQUATE Polychromasia 1+ 1+ Hypochromic-Microcytic 1+ Anisocytosis 2+ Macrocytic Cells 2+ 2+ Target Cells FEW Stomatocytes 1+ PUBS MCHC (33.0 - 37.0 G/DL) 33.6 33.5 07/08 07/08 1824 1125 Hematology CBC w Diff MAN DIFF ORDERED MAN DIFF ORDERED WBC (4.8 - 10.8 /CUMM) 9.0 8.8 RBC (4.20 - 5.40 /CUMM) 2.04 L 1.72 L Hgb (12.0 - 16.0 G/DL) 7.7 L 6.6 *L Hct (37 - 47 %) 23.0 L 20.5 L MCV (81.0 - 99.0 FL) 112.5 H 119.6 H MCH (27.0 - 31.0 PG) 37.5 H 38.5 H RDW (11.5 - 14.5 %) 25.9 H 19.8 H Plt Count (130 - 400 /CUMM) 144 144 MPV (7.4 - 10.4 FL) 8.2 7.8 Gran % (42.2 - 75.2 %) 58.9 Lymphocytes % (20.5 - 51.1 %) 28.4 Monocytes % (1.7 - 9.3 %) 11.4 H Eosinophils % (0 - 5 %) 1.0 Basophils % (0.0 - 2.0 %) 0.3 Absolute Granulocytes (1.4 - 6.5 /CUMM) 5.3 Segmented Neutrophils (42.2 - 75.2 %) 67 66 Band Neutrophils (0.0 - 5.0 %) 7 H Absolute Lymphocytes (1.2 - 3.4 /CUMM) 2.6 Lymphocytes (20.5 - 51.1 %) 25 15 L Monocytes (1.7 - 9.3 %) 6 8 Absolute Monocytes (0.10 - 0.60 /CUMM) 1.0 H Eosinophils (0 - 5.0 %) 2 1 Absolute Eosinophils (0.0 - 0.7 /CUMM) 0.1 Basophils (0.0 - 2.0 %) 3 H Absolute Basophils (0.0 - 0.2 /CUMM) 0 Platelet Estimate (ADEQUATE) DECREASED DECREASED Polychromasia 1+ 1+ Hypochromic-Microcytic 1+ 2+ Anisocytosis 2+ 1+ Macrocytic Cells 2+ 1+ Target Cells 1+ PUBS MCHC (33.0 - 37.0 G/DL) 33.4 32.2 L 07/08 07/08 07/07 0615 0001 1750 Chemistry Sodium (137 - 145 mmol/L) 140 140 Potassium (3.5 - 5.1 mmol/L) 4.0 3.9 Chloride (98 - 107 mmol/L) 102 101 Carbon Dioxide (22 - 30 mmol/L) 29 30 Anion Gap (5 - 16) 9 9 BUN (7 - 17 mg/dL) 16 17 Creatinine (0.5 - 1.0 mg/dL) 1.1 H 1.0 Estimated GFR (>60 ml/min) 51 L 57 L BUN/Creatinine Ratio (7 - 25 %) 14.5 17.0 Magnesium (1.6 - 2.3 mg/dL) 1.5 L 1.9 Total Bilirubin (0.2 - 1.3 mg/dL) 10.4 H Direct Bilirubin (< 0.4 mg/dL) 8.8 H AST (14 - 36 U/L) 95 H ALT (9 - 52 U/L) 22 Alkaline Phosphatase (<127 U/L) 203 H Total Protein (6.3 - 8.2 g/dL) 5.8 L Albumin (3.5 - 5.0 g/dL) 2.3 L Vitamin B12 (239 - 931 pg/mL) > 1000 H RBC Folate Pending Hematology CBC w Diff MAN DIFF ORDERED WBC (4.8 - 10.8 /CUMM) 9.4 RBC (4.20 - 5.40 /CUMM) 1.74 L Hgb (12.0 - 16.0 G/DL) 6.8 *L Hct (37 - 47 %) 20.7 L MCV (81.0 - 99.0 FL) 119.2 H MCH (27.0 - 31.0 PG) 39.0 H RDW (11.5 - 14.5 %) 20.4 H Plt Count (130 - 400 /CUMM) 143 MPV (7.4 - 10.4 FL) 8.1 Segmented Neutrophils (42.2 - 75.2 %) 73 Band Neutrophils (0.0 - 5.0 %) 3 Lymphocytes (20.5 - 51.1 %) 14 L Monocytes (1.7 - 9.3 %) 9 Eosinophils (0 - 5.0 %) 1 Platelet Estimate (ADEQUATE) DECREASED Hypochromic-Microcytic 1+ Anisocytosis 1+ Macrocytic Cells 2+ PUBS MCHC (33.0 - 37.0 G/DL) 32.7 L Imaging/Other Studies: CT scan without liver lesion. Small amount of ascites, nodular liver, splenomegaly.
[2017-07-10 22:33] VITALS: BP 110/70
[2017-07-11 06:52] VITALS: BP 102/50
--- NOTE | 2017-07-11 07:15 | PN- Housestaff ---
See Addendum Subjective Follow-up For: Hyperbilirubinemia electrolyte abnormalities ethanol abuse Tele-Events Since Last Visit: NSR with heart rate in the 90s. No overnight events. Subjective: Patient was seen and examined at bedside. She reports feeling much better than when she came in. Her diarrhea has resolved. She still has a persistent nonproductive cough and tremors of extemities. Review of Systems Constitutional: Reports: no symptoms. Respiratory: Reports: cough. Neurological/Psychological: Reports: tremors. Objective Last 24 Hrs of Vital Signs/I&O Vital Signs Date Time Temp Pulse Resp B/P B/P Pulse O2 O2 Flow FiO2 Mean Ox Delivery Rate 07/11 0652 99.6 93 20 102/50 96 Nasal Cannula 07/10 2233 100.1 93 20 110/70 94 07/10 2210 Nasal 2.0L Cannula 07/10 1600 Nasal 2.0L Cannula 07/10 1506 100.1 96 18 104/50 96 Intake & Output 07/11 1600 07/11 0800 07/11 0000 Intake Total 120 220 Output Total Balance 120 220 Intake, IV 100 Intake, Oral 120 120 Number 1 Bowel Movements Physical Exam General Appearance: Alert, Oriented X3, Cooperative, No Acute Distress Skin: No Rashes, No Breakdown Skin Temp/Moisture Exam: Warm/Dry Sepsis Skin Exam (color): Normal for Ethnicity HEENT: Atraumatic Cardiovascular: Normal S1, Normal S2, No Murmurs Lungs: bibasilar crackles Abdomen: Soft, No Tenderness Neurological: Normal Speech Extremities: No Edema Assessment/Plan Assessment: Pateint is a 57-year-old female with past medical history of hyperlipidemia, alcohol abuse, depression, peptic ulcer disease who presents with complaints of stool incontinence and poor appetite. Assessment and Plan: Diarrhea and Electrolyte Abnormalities: Patient came in with severe hypokalemia and hypomagnesemia likely secondary to severe diarrhea and alcoholism. Her last episode of diarrhea was last night. * Will continue repletion of K and Mg as necessary. * Her stool studies and C.diff have been negative. Alcoholic Liver Cirrhosis: Her CT scan shows chronic hepatosplenomegaly and hepatic cirrhosis likely secondary to heavy alcohol use. Her lab studies showed elevated INR of 2.0 and direct bilirubin of 8. Abdominal U/S shows 5 cm hypoechoic region within the right hepatic lobe concerning for malignancy. Multiphasic CT on 07/09 showed no suspicious liver lesion. The questionable lesion on U/S was lobular portion of the right lobe of liver and not a hepatic mass. * She has a high MELD score of 22 points and Maddrey's Discriminamt Function of 58.6 points. Both indicate a fairly poor prognosis. * Will keep her off steroids for now. * Her total and direct bilirubin have trended up since 07/08 * She has been started on Rifaximin BID. * Alpha fetoprotein - pending * RBC Folate - pending Anemia: * She received 1unit PRBC on 07/08. * Her repeat CBC has been stable around 8 since transfusion. * Her MCV is elevated likely due to alcohol use. * continue folate supplementation * Will monitor CBC History of Alcohol Use: * Ativan per CIWA * Continue folate, thiamine, multivitamins supplementation. DVT Prophylaxis: Elevated INR of 1.5. Will continue with ALPS * One dose of SC Vit K 10mg was administered on 07/08. Diet: Regular Code: Full Code Problem List: 1. Transaminitis Pain Ratin Pain Location: none Pain Goal: Remain pain free Pain Plan: none Tomorrow's Labs & Rationales: CBC, BEP, LFTs
[2017-07-11 07:39] LABS: HEMATOCRIT 23.9 % (37-47); MEAN CORPUSCULAR HGB 38.2 PG (27.0-31.0); MEAN CORPUSCULAR HGB CONC 33.7 G/DL (33.0-37.0); MEAN CORPUSCULAR VOLUME 113.4 FL (81.0-99.0); PLATELET COUNT 162 /CUMM (130-400); WHITE BLOOD CELL COUNT 8.8 /CUMM (4.8-10.8)
[2017-07-11 08:17] LABS: PT 16.2 SEC (9.4-12.5)
--- NOTE | 2017-07-11 10:02 | PN- Student ---
Subjective Subjective: Patient states that she is still feeling very tired. She reports that she also continues to have a tremor of her upper and lower extremities and has difficult time ambulating on her own. Her diarrhea has decreased to about 2-3 BM/day, but still continues to have a watery, brown-green consistency with incontinence. Denies soft, formed stools. Denies bloody stools. Overall, patient feels she is improving. Objective Objective: Vital Signs Date Time Temp Pulse Resp B/P B/P Pulse O2 O2 Flow FiO2 Mean Ox Delivery Rate 07/11 0800 Nasal 2.0L Cannula 07/11 0652 99.6 93 20 102/50 96 Nasal Cannula 07/10 2233 100.1 93 20 110/70 94 07/10 2210 Nasal 2.0L Cannula 07/10 1600 Nasal 2.0L Cannula 07/10 1506 100.1 96 18 104/50 96 Intake & Output 07/11 1600 07/11 0800 07/11 0000 Intake Total 120 220 Output Total Balance 120 220 Intake, IV 100 Intake, Oral 120 120 Number 1 Bowel Movements Physical Exam General: AOx3, cooperative, NAD HEENT: AT/NC, PERRLA, icteric sclera bilaterally, EOMI. Mucosa moist. Neck: Supple, no JVD, no LAD Heart: RRR, normal S1, S2, mild systolic murmur, no rubs or gallops Repiratory: Lungs CTA bilaterally, no wheezes, rales, or rhonchi Abdominal: Mildly distended, normoactive bowel sounds. Soft, NTTP. Hepatomegaly. Skin: Diffuse jaundice. Scattered spider angiomas on anterior chest. Extremities: Hands and upper extremeites exhibit mild tremor. No LE edema. Negative asterixis. 2x2 area of lichenification with central darkening/ hyperpigmentation on right medial foot. Bilateral halux valgus of great toe. Neuro: Drowsy, no focal neuro deficits. Results Results: Laboratory Tests 07/11/17 0632: Anion Gap 11, Estimated GFR 51 L, BUN/Creatinine Ratio 14.5, Magnesium 1.7, Total Bilirubin 15.7 H, Direct Bilirubin 13.8 H, AST 74 H, ALT 24, Alkaline Phosphatase 217 H, Total Protein 6.4, Albumin 2.6 L, PT 16.2 H, INR 1.55 H, CBC w Diff MAN DIFF ORDERED, RBC 2.10 L, MCV 113.4 H, MCH 38.2 H, RDW 23.0 H , MPV 8.0, Segmented Neutrophils Pending, PUBS MCHC 33.7 07/10/17 0630: Anion Gap 11, Estimated GFR 57 L, BUN/Creatinine Ratio 15.0, Magnesium 1.2 L, PT 16.3 H, INR 1.56 H, CBC w Diff MAN DIFF ORDERED, RBC 2.10 L, MCV 112.3 H, MCH 37.8 H, RDW 23.8 H, MPV 7.8, Segmented Neutrophils 72, Lymphocytes 14 L, Monocytes 10 H, Eosinophils 4, Platelet Estimate ADEQUATE, Polychromasia 1+, Macrocytic Cells 2+, Stomatocytes 1+, [facility] MCHC 33.6 07/09/17 0625: Anion Gap 8, Estimated GFR 57 L, BUN/Creatinine Ratio 16.0, Calcium 8.5, Phosphorus 2.8, Magnesium 1.5 L, PT 18.0 H, INR 1.72 H, CBC w Diff MAN DIFF ORDERED, RBC 2.03 L, MCV 113.1 H, MCH 37.9 H, RDW 24.7 H, MPV 7.7, Segmented Neutrophils 69, Band Neutrophils 2, Lymphocytes 15 L, Monocytes 12 H, Eosinophils 2, Platelet Estimate ADEQUATE, Polychromasia 1+, Hypochromic- Microcytic 1+, Anisocytosis 2+, Macrocytic Cells 2+, Target Cells FEW, PUBS MCHC 33.5 07/08/17 1824: CBC w Diff MAN DIFF ORDERED, RBC 2.04 L, MCV 112.5 H, MCH 37.5 H, RDW 25.9 H , MPV 8.2, Gran % 58.9, Lymphocytes % 28.4, Monocytes % 11.4 H, Eosinophils % 1.0, Basophils % 0.3, Absolute Granulocytes 5.3, Segmented Neutrophils 67, Absolute Lymphocytes 2.6, Lymphocytes 25, Monocytes 6, Absolute Monocytes 1.0 H , Eosinophils 2, Absolute Eosinophils 0.1, Absolute Basophils 0, Platelet Estimate DECREASED, Polychromasia 1+, Hypochromic-Microcytic 1+, Anisocytosis 2+ , Macrocytic Cells 2+, Target Cells 1+, [facility] MCHC 33.4 07/08/17 1125: CBC w Diff MAN DIFF ORDERED, RBC 1.72 L, MCV 119.6 H, MCH 38.5 H, RDW 19.8 H , MPV 7.8, Segmented Neutrophils 66, Band Neutrophils 7 H, Lymphocytes 15 L, Monocytes 8, Eosinophils 1, Basophils 3 H, Platelet Estimate DECREASED, Polychromasia 1+, Hypochromic-Microcytic 2+, Anisocytosis 1+, Macrocytic Cells 1 +, PUBS MCHC 32.[address] abdomen/pelvis with and without contrast 07/09/17 Liver is enlarged. Right lobe liver measures 18.2 cm superior inferior. The liver has a lobular contour. The liver parenchyma is heterogeneous in density. Findings consistent withcirrhosis. No suspicious liver lesion. On the ultrasound study of 07/07/2017, there was question of a lesion measuring 5 cm in the right hepatic lobe. This just represents a lobular portion of the right lobe of liver and not a hepaticmass. IMPRESSION: 1. Small bilateral pleural effusions with bibasilar atelectasis. 2. Cirrhosis of liver with hepatosplenomegaly. Small volume of abdominal ascites. No focal liver lesion. 3. Diverticulosis of colon. No acute abnormality of the bowel. 4. 2.8 cm abdominal aortic aneurysm. Assessment/Plan Assessment: 57 y/o female with PMHx significant for depression, PUD, HLD, and alcohol abuse presented to the ED with multiple complaints including diarrhea for the last 10 days with 7-8 bowel movements per day, diffuse abdominal pain, nausea, vomimiting, and decreased appetite, admitted to telemetry for electrolyte abnormalities. Patient also found to have liver cirrhosis on CT and intrahepatic mass on ultrasound. Multiphase CT abdomen/pelvis with and without contrast done to further assess liver and no mass was identified. Findings of contrast CT consistent with cirrhosis and nodular liver along with mild amount of abdominal ascites. Per GI, Patient was started on Rifaximin 550 mg PO BID due to suspicion for potential hepatic encephalopathy as lactulose is contraindicated with diarrhea. Plan: Electrolyte Abnormalities secondary to Diarrhea * Continue to repleat magnesium and potassium PRN * Continue clerical assistant for electrolyte associated cardiac concerns * Stool, C. Diff, and blood cultures negative. Liver Cirrhosis/Nodular liver * MELD score of 22 and Maddrey's Discriminant Function of 58.6 * Abdominal ultrasound identified hypoechoic 5cm intrahepatic mass of the right hepatic lobe leading to further scan with multiphase CT with and without contrast per GI where no mass was seen. * Multiphase CT revealed findings consistent with liver cirrhosis including hepatomegaly, nodular liver, and mild amount of ascites. * Per GI, patient was started on Rifaximin 550 mg PO BID for covert encephalopathy (lactulose contraindicated d/t diarrhea) -- will continue. * No corticosteroids or pentoxifylline at this time. * Check stool guiac * INR decreased to 1.55. Macrocytic Anemia * Patient received 1 unit of PRBCs on 07/08 and H/H has increased to 03/08.9. * MCV decreased to 113.4. Retic count 4.83. * Anemia may be secondary to alcohol use or dilution from IV fluids but will rule out possibility of slow GI bleed -- Check stool guiac. * Continue to monitor CBC Alcoholism * Monitor CIWA scores * Ativan tapered to 1.5 mg Q13H * Psych consult pending * Continue folate, thiamine, and multivitamins as needed Patient remains stable from cardiac standpoint. Will be transferred to general medicine floor for continued care. DVT Prophylaxis: INR decreased to 1.5 however remains elevated -- Continue ALPS Code status: Full Code Diet: Regular JENNIFER [place]
--- NOTE | 2017-07-11 14:16 | Discharge Summary ---
Visit Information Visit Dates Admission Date: 07/06/17 Discharge Date: 07/19/2017 Hospital Course Course Attending Physician: Dr. Simmons Primary Care Physician: Dayday Sethi MD Consulting Request: 1 Consulting Specialty: Infectious Disease Consulting Request: 2 Consulting Specialty: Gastroenterology Hospital Course: Ms Franklin is a 57 year old female with past medical history of hyperlipidemia, alcohol abuse, depression, peptic ulcer disease who presented with complaints of diarrhea, fecal incontinence and poor appetite. Below is a list of problems she was admitted and treated for: Diarrhea Patient reported having multiple loose watery stools for the past 8-10 days. On her admission labs she was found to have severe hypokalemia and hypomagnesemia. She was started on IV supplementation. Her stool studies were sent for culture but did not show any growth. Her electrolytes were monitored each day and repleted as required. Given significant and recurrent diarrhea, C. difficile PCR was ordered and canceled per recommendation off ID team. Patient will complete total course 14 days of antibiotic she is on ciprofloxacin and Flagyl. She will need to follow-up as an outpatient with gastroenterology for further evaluation of diarrhea still persists. Sepsis secondary to gram -ve bacteremia During hospitalization patient had a high-grade temperature spike, along with significant leukocytosis 12-13 noticed. Patient was empirically given ceftaz vancomycin and Flagyl overnight. ID consult was obtained. Patient was started on ceftriaxone. CT scan of the chest abdomen and pelvis was done to identify the source of infection, results of which were unremarkable. One blood culture bottles grew Klebsiella pneumonia. Ceftriaxone was eventually changed to oral cipro 500mg bid and po flagyl 500mg bid. MRI abdomen was also obtained as per ID recommendations which could not identify any possible source of infection. Alcoholic Liver Cirrhosis Her CT scan showed chronic hepatosplenomegaly and hepatic cirrhosis which is likely secondary to heavy alcohol use. Her lab studies showed elevated INR, hyperbilirubinemia and borderline thrombocytopenia. A RUQ U/S showed a 5 cm hypoechoic region within the right hepatic lobe which was concerning for malignancy. A Multiphasic CT was performed for further evaluation of the liver mass but showed no suspicious liver lesion. The questionable lesion on U/S was lobular portion of the right lobe of liver and not a hepatic mass. As per GI recommendations she was kept off steroids and pentoxifylline. She was started on Rifiximin as her clinical condition was concerning for hepatic encephalopathy. She has a high MELD score of 22 points and Maddrey's Discriminamt Function of 58.6 points. Anemia: On admission she was found to be anemic with Hb of 9.0. For unclear reason she had a drop in Hb over the next two days which warranted a unit of PRBC transfusion on 07/08. Her Hb stayed reasonable stable around 8.0 post transfusion for the remainder of her course of admission. History of Alcohol Use: She was administered Ativan based on her CIWA scores and tapered gradually. She was started on folate, thiamine, multivitamins supplementation. DVT Prophylaxis: Was maintained on ALPS. Her INR was elevated hence SC heparin/enoxaparin was not administered. Allergies: Coded Allergies: NO KNOWN ALLERGIES (01/10/12) Significant Procedures: SERVICE DATE: 07/09/17- EXAM TYPE: CAT - CT ABD & PELVIS W IV CONTRAST FINDINGS: LUNG BASES: Small bilateral pleural effusions. Dependent atelectasis at both lung bases. LIVER, GALLBLADDER, AND BILIARY TREE: Liver is enlarged. Right lobe liver measures 18.2 cm superior inferior. The liver has a lobular contour. The liver parenchyma is heterogeneous in density. Findings consistent with cirrhosis. No suspicious liver lesion. On the ultrasound study of 07/07/2017, there was question of a lesion measuring 5 cm in the right hepatic lobe. This just represents a lobular portion of the right lobe of liver and not a hepatic mass. The gallbladder is unremarkable with no evidence of radiopaque gallstones, gallbladder wall thickening, or obvious pericholecystic inflammatory changes. PANCREAS: Unremarkable. SPLEEN: Spleen is enlarged. Spleen measures 18.1 cm superior inferior. ADRENAL GLANDS: Unremarkable. KIDNEYS AND URETERS: The kidneys are normal in size, shape, and attenuation. No hydronephrosis, hydroureter, or calculi seen. No perinephric stranding. BLADDER: Unremarkable. GASTROINTESTINAL TRACT: There is diverticulosis of left colon and sigmoid. A few diverticula of the right colon. No diverticulitis. No acute change of the bowel. No bowel obstruction. No bowel wall thickening or edema. Moderate volume of stool in the colon. The appendix is normal. Small bowel loops are unremarkable. MESENTERY: Small volume of abdominal ascites. No inflammation. No free air. ABDOMINAL WALL: No significant hernia is appreciated. LYMPH NODES: Normal. VASCULAR: Atherosclerotic vascular wall calcification of the aorta and iliac arteries. There is a subtle fusiform aneurysm of the distal aorta. This measures 2.8 cm AP. PELVIC VISCERA: Unremarkable. OSSEOUS STRUCTURES: Multilevel endplate degenerative spondylosis with endplate spurs of the lumbar vertebrae. Old healed fractures of the bilateral pubic rami. IMPRESSION: 1. Small bilateral pleural effusions with bibasilar atelectasis. 2. Cirrhosis of liver with hepatosplenomegaly. Small volume of abdominal ascites. No focal liver lesion. 3. Diverticulosis of colon. No acute abnormality of the bowel. 4. 2.8 cm abdominal aortic aneurysm. SERVICE DATE: 07/07/17 EXAM TYPE: US - US-LIMITED ABDOMEN FINDINGS: PANCREAS: Visualized portions of the pancreas are normal in appearance. LIVER: The liver is enlarged and demonstrates heterogeneously increased echogenicity. Liver margins are relatively smooth. There is a more focal hypoechoic region within the right hepatic lobe which measures approximately 3.9 x 4.8 x 4.9 cm which is nonspecific. GALLBLADDER: The gallbladder is physiologically distended. Echogenic bile is present dependently within the gallbladder. There is no definitive gallbladder wall thickening. Small amount of pericholecystic fluid is present adjacent to the liver. Negative sonographic Coffman's sign. COMMON BILE DUCT: Normal in caliber measuring 0.4 cm in diameter. RIGHT KIDNEY: Normal. No hydronephrosis. No renal calculi or focal parenchymal lesions. The kidney measures 10.9 cm in maximum dimension. FREE FLUID: None. IMPRESSION: 1. Hepatomegaly with heterogeneously increased echogenicity but relatively smooth borders. This is a nonspecific finding but suggestive of underlying liver disease. There is a more focal hypoechoic region measuring approximately 5 cm within the right hepatic lobe. It is unclear whether this represents a true lesion or just focal region of heterogeneous tissue. Given abnormal liver findings, a multi phase CT or MRI of the liver is recommended to exclude malignancy. 2. The gallbladder contains echogenic bile and there is a small amount of pericholecystic fluid adjacent to the liver. I suspect this represents changes secondary to adjacent liver disease. Clinical correlation recommended. SERVICE DATE: 07/06/17 EXAM TYPE: CAT - CT ABD & PELVIS W/O IV CONTRAST FINDINGS: LUNG BASES: Scattered linear opacities of atelectasis in lung bases. No basilar consolidation or pleural effusion. Atherosclerotic calcification of coronary arteries and thoracic aorta. LIVER, GALLBLADDER, AND BILIARY TREE: Hepatomegaly, diffuse hepatic steatosis and lobulated hepatic contour, system with cirrhosis. No evidence of hepatic mass on this noncontrast exam. No intrahepatic bile duct dilatation. Gallbladder is distended to 4.4 cm transverse diameter and contains hyperdense sludge. No gallbladder wall edema or pericholecystic fluid. PANCREAS: Unremarkable. SPLEEN: Splenomegaly. Spleen measures 17.2 cm long and 13.2 cm AP, compared to 13.8 x 11.9 cm on 07/06/2011. ADRENAL GLANDS: Unremarkable. KIDNEYS AND URETERS: The kidneys are normal in size, shape, and attenuation. No hydronephrosis, hydroureter, or calculi seen. No perinephric stranding. BLADDER: Urinary bladder is empty. No bladder calculi. The presence of gas within the bladder requires clinical correlation; query whether there has been any recent bladder catheterization. There is no overt wall thickening. GASTROINTESTINAL TRACT AND PERITONEAL CAVITY: Trace amount of free fluid extends along the paracolic gutters. Stomach is unremarkable. Bowel loops are normal in caliber. The appendix is normal. Multiple diverticula of the distal descending and sigmoid colon. No focal pericolonic fat stranding, abscess or pneumoperitoneum. Minimal haziness of perirectal fat is of doubtful significance in this patient with hepatosplenomegaly and trace abdominal ascites. There is no evidence of submucosal edema of the rectal wall or perirectal fluid collection. ABDOMINAL WALL: Unremarkable. LYMPH NODES: No pathologic sized lymph nodes within the abdomen or pelvis. VASCULAR: Atherosclerosis of the abdominal aorta and branch vessels. At the level of the renal arteries, the aorta is 1.8 cm diameter. Further distally, the infrarenal aorta measures 2.9 cm AP and 3 cm transverse (compared to 2.4 cm maximum diameter on 07/06/2011). There is severe atherosclerotic calcification of common iliac arteries. PELVIC VISCERA: No evidence of uterine or adnexal mass. OSSEOUS STRUCTURES: Old, healed fractures of bilateral pubic rami. No acute findings in the mildly degenerated lumbar spine. IMPRESSION: 1. Chronic hepatosplenomegaly and hepatic cirrhosis. 2. Gallbladder contains sludge. No calcified stones or wall edema. No CT imaging evidence of acute cholecystitis. 3. Colonic diverticulosis without diverticulitis. 4. Mild aneurysmal dilatation of the infrarenal abdominal aorta. 5. The finding of gas within the urinary bladder requires clinical correlation; query whether there has been any recent bladder catheterization. SERVICE DATE: 07/06/17- EXAM TYPE: RAD - XRY-PORTABLE CHEST XRAY FINDINGS: The cardiac silhouette is not enlarged. The mediastinal and hilar contours are unremarkable. There are neither pleural effusions nor pneumothoraces. There are no consolidations. The osseous structures are unremarkable. IMPRESSION: No evidence for acute disease. Disposition Summary Disposition Principal Diagnosis: Alcoholic hepatitis Macrocytic anemia Diarrhea Sepsis secondary to Klebsiella bacteremia Additional Diagnosis: Alcohol Abuse Hyperlipidemia PUD depression Discharge Disposition: [facility] Discharge Instructions General Discharge Information Code Status: Full Code Patient's Diet: Regular Patient's Activity: As tolerated Follow-Up Instructions/Appts: Please follow up with your PCP within one week of discharge. Medications at Discharge Discharge Medications: Continue taking these medications: Escitalopram Oxalate (Escitalopram Oxalate) 20 MG TABLET 1 Tablet ORAL DAILY Qty = 30 Comments: Last Taken: 07/19/16 Time: 9AM Pantoprazole Sodium (Pantoprazole Sodium) 40 MG TABLET.DR 1 Tablet ORAL as needed for GI Qty = 60 Comments: PRILOSEC GIVEN Last Taken: 07/19/16 Time: 6AM Start taking the following new medications: Ciprofloxacin HCl (Cipro) 500 MG TABLET 500 Milligram ORAL TWICE DAILY Qty = 16 No Refills Comments: Last Taken: 07/19/16 Time: 9AM Rifaximin (Xifaxan) 550 MG TABLET 1 Tablet ORAL TWICE DAILY Qty = 60 No Refills Comments: Last Taken: 07/19/16 Time: 9AM Metronidazole (Flagyl) 250 MG TABLET 1 Tablet ORAL TWICE DAILY Qty = 16 No Refills Comments: Last Taken: 07/19/16 Time: 9AM Copies To: Julius PAULSON,Memo Rizvi; Navdeep PAULSON,Dayday; Alejandra PAULSON,Cheo Vazquez
[2017-07-11 15:25] VITALS: BP 100/58
[2017-07-11 20:00] VITALS: BP 100/58
[2017-07-11 22:00] VITALS: BP 110/60
[2017-07-11 22:38] VITALS: BP 110/60
[2017-07-12] VITALS (13 sets, daily range): BP systolic 102–110; BP diastolic 50–60
--- NOTE | 2017-07-12 07:20 | PN- Housestaff ---
JhonathanBarton 07/12/17 0720: Subjective Follow-up For: Hyperbilirubinemia Hypokalemia and hypomagnesemia Decompensated liver cirrhosis Subjective: No overnight events. Patient remained afebrile. Patient is on 2 weeks of oxygen and maintaining saturation 94%. Patient having yellow sclera. She is little bit drowsy but arousable and she is oriented to time place person. Patient having 1 loose bowel movement this morning. Patient denied any chest pain, short of breath, nausea, vomiting, abdominal pain, constipation, blood in vomitus and blood in stool. Review of Systems Constitutional: Reports: no symptoms. EENTM: Reports: no symptoms. Cardiovascular: Reports: no symptoms. Respiratory: Reports: no symptoms. Gastrointestinal: Reports: see HPI. Genitourinary: Reports: no symptoms. Musculoskeletal: Reports: no symptoms. Neurological/Psychological: Reports: no symptoms. Objective Last 24 Hrs of Vital Signs/I&O Vital Signs Date Time Temp Pulse Resp B/P B/P Pulse O2 O2 Flow FiO2 Mean Ox Delivery Rate 07/12 1036 94 Nasal 2.0L Cannula 07/12 1000 96.9 78 14 102/52 07/12 0800 98.8 80 14 108/54 07/12 0729 99.1 101 20 102/50 95 Nasal 2.0L Cannula 07/12 0400 100.0 100 18 110/60 07/12 0200 100.0 100 20 110/60 07/12 0000 100.0 100 20 110/60 07/12 0000 95 Nasal 2.0L Cannula 07/11 2238 100.0 100 20 110/60 95 07/11 2200 100.0 100 20 110/60 07/11 2000 99.0 67 20 100/58 07/11 1600 Nasal 2.0L Cannula 07/11 1525 99.0 67 20 100/58 96 Nasal 2.0L Cannula Intake & Output 07/12 1600 07/12 0800 07/12 0000 Intake Total 220 360 Output Total Balance 220 360 Intake, Oral 220 360 Physical Exam General Appearance: Alert, Oriented X3, Cooperative Skin Temp/Moisture Exam: Warm/Dry HEENT: Atraumatic, PERRLA, EOMI Neck: Supple Cardiovascular: Normal S1, Normal S2 Lungs: Clear to Auscultation Abdomen: Soft, No Tenderness Neurological: Normal Speech, Strength at 5/5 X4 Ext, Normal Tone Extremities: No Edema Assessment/Plan Assessment: Pateint is a 57-year-old female with past medical history of hyperlipidemia, alcohol abuse, depression, peptic ulcer disease who presents with complaints of stool incontinence and poor appetite. Assessment and Plan: Patient came in with severe hypokalemia and hypomagnesemia likely secondary to severe diarrhea and alcoholism. Her last episode of diarrhea was last night. -Will continue repletion of K and Mg as necessary. Today his potassium is 2.7 and magnesium is 1.0 and we will repleted both magnesium and potassium through IV. -Her stool studies and C.diff have been negative. Decompensated liver cirrhosis: Her CT scan shows chronic hepatosplenomegaly and hepatic cirrhosis likely secondary to heavy alcohol use. Her lab studies showed elevated INR of 2.0 and direct bilirubin of 8. Abdominal U/S shows 5 cm hypoechoic region within the right hepatic lobe concerning for malignancy. Multiphasic CT on 07/09 showed no suspicious liver lesion. The questionable lesion on U/S was lobular portion of the right lobe of liver and not a hepatic mass. -She has a high MELD score of 22 points and Maddrey's Discriminamt Function of 58.6 points. Both indicate a fairly poor prognosis. -Will keep her off steroids for now. -Her total and direct bilirubin have trended up since 07/08 -She has been started on Rifaximin BID. -Alpha fetoprotein - negative -RBC Folate - pending Anemia: -She received 1unit PRBC on 07/08. -Her repeat CBC has been stable around 8 since transfusion. -Her MCV is elevated likely due to alcohol use. -continue folate supplementation -Will monitor CBC History of Alcohol Use: -Ativan per CIWA -Continue folate, thiamine, multivitamins supplementation. DVT Prophylaxis: Elevated INR of 1.5. Will continue with ALPS -One dose of SC Vit K 10mg was administered on 07/08. Diet: Regular Code: Full Code Problem List: 1. Hepatic encephalopathy 2. Hypomagnesemia 3. Hypokalemia Pain Ratin Pain Location: none Pain Goal: Remain pain free Pain Plan: tylenol for mild pain Tomorrow's Labs & Rationales: cbc/bep Tony Rizzo MD 07/12/17 1143: Attending MD Review Statement Attending Statement Attending MD Statement: examined this patient, discuss w/resident/PA/SUPPLY TECHNICIAN, agreed w/resident/PA/SUPPLY TECHNICIAN, reviewed EMR data (avail), discussed with nursing, discussed with case mgmt, amended to note Attending Assessment/Plan: Patient seen and examined. Transferred yesterday from the telemetry service after being on the monitoring specialist for hypokalemia. Patient presented to the emergency room July 06 a complaint of diarrhea just found to have severe hypokalemia and hypomagnesemia magnesium as well as anemia. Due to her significant alcohol history she was also started on benzodiazepine therapy with araC while protocol. She is found to have cirrhosis and GI consultation was obtained. She is also on rifaximin to prevent hepatic encephalopathy. Today she is lethargic but oriented 3. Hemodynamically stable. She has low- grade temperature of 100.0. Her diarrhea appears to be improving, no bowel movements documented yesterday. She had 1 loose bowel movement today. She complains of stool incontinence today. On examination she has jaundiced skin and sclera. She has no focal neurologic deficits on exam though she is lethargic. She has mild intention tremors. Heart sounds are regular. Lungs are clear to auscultation bilaterally. Abdomen is soft and nontender. She has no peripheral edema. Laboratory data shows leukocytosis of 12.4 which is new today. She is anemic however hemoglobin level has been stable since transfusion on July 08. It is noted she dropped her hemoglobin from 9.0 on July 06 of 6.6 on July 08. Hemoglobin has been stable since. Problems: 1. Decompensated alcoholic cirrhosis 2. Diarrhea 3. Acute on chronic anemia 4. Electrolyte abnormalities Plan: -Continue rifaximin to prevent hepatic encephalopathy. Lactulose is contraindicated due to her diarrhea. -Her fecal incontinence is likely related to her lethargy. We'll monitor for improvement with increasing her strength. -Hemoglobin level appears stable. Etiology of acute drop following admission unknown. She may have been hemoconcentrated on admission. Guaiac stools. -Supplement potassium orally. Start patient on potassium 40 mEq orally every 8 hours. Repeat potassium level later this afternoon. Supplement magnesium intravenously as oral magnesium may exacerbate diarrhea. So far stool workup is negative for salmonella, Shigella,Camphylobacter or Clostridium difficile. - Physical therapy consultation to mobilize patient. -Her leukocytosis and low-grade fever raise concern for possible underlying infection. Check blood and urine cultures. If patient spikes fever we'll consider broad-spectrum antibiotic therapy. CT abdomen shows only small volume ascites. She has small bilateral pleural effusions with bibasal atelectasis. Liver ultrasound has suggested a lesion in the right hepatic lobe. CT scan showedsuspicious liver lesion. Gallbladder appeared unremarkable on the CT scan. -CIWA has beeen 0-3.Taper ativan to 0.5mg bid.
[2017-07-12 08:02] LABS: ABSOLUTE BASOPHIL COUNT 0 /CUMM (0.0-0.2); ABSOLUTE EOSINOPHIL COUNT 0.1 /CUMM (0.0-0.7); ABSOLUTE LYMPH COUNT 2.3 /CUMM (1.2-3.4); ABSOLUTE MONOCYTE COUNT 1.9 /CUMM (0.10-0.60); BASOPHIL % 0.1 % (0.0-2.0); EOSINOPHIL % 0.5 % (0-5); GRANULOCYTE % 64.9 % (42.2-75.2); HEMATOCRIT 23.3 % (37-47); MEAN CORPUSCULAR HGB 38.3 PG (27.0-31.0); MEAN CORPUSCULAR VOLUME 112.7 FL (81.0-99.0); MEAN PLATELET VOLUME 8.4 FL (7.4-10.4); PLATELET COUNT 172 /CUMM (130-400); RED BLOOD CELL CT 2.06 /CUMM (4.20-5.40); WHITE BLOOD CELL COUNT 12.4 /CUMM (4.8-10.8)
--- NOTE | 2017-07-12 13:29 | Event Note ---
Event Note Event Note: Situation: Mechanical fall and rapid response was called. Background:57-year-old female with past medical history of hyperlipidemia, alcohol abuse, depression, peptic ulcer disease who presents with complaints of stool incontinence and poor appetite. Following the patient on Gen. medicine floor for hepatic encephalopathy with hyperbilirubinemia. Assessment and plan: Patient was examined. She was fully oriented in time, place, person and alert. Patient denied any chest pain, short of breath, dizziness, loss of consciousness , confusion, pain in any part of the body. We ordered blood glucose that was 195 and we ordered orthostatic vitals. Blood pressure at that point was 102/52. We will follow the orthostatic vital on the patient reported that he was trying to get to the phone and she fell down.
[2017-07-13] VITALS (7 sets, daily range): BP systolic 100–120; BP diastolic 50–70
--- NOTE | 2017-07-13 07:29 | PN- Housestaff ---
[facility] Subjective Follow-up For: Hyperbilirubinemia Hypokalemia and hypomagnesemia Decompensated liver cirrhosis Subjective: No overnight events. Patient remained afebrile overnight. Patient seen and examined this morning. She was lying in bed comfortably. She had 5-7 bowel movement last night. Patient denied any chest pain, short of breath, nausea, vomiting, abdominal pain and dysuria. Patient is alert oriented. She reported incontinence of bowel and urine. Review of Systems Constitutional: Reports: weakness. EENTM: Reports: no symptoms. Cardiovascular: Reports: no symptoms. Respiratory: Reports: no symptoms. Gastrointestinal: Reports: see HPI. Genitourinary: Reports: see HPI. Musculoskeletal: Reports: no symptoms. Neurological/Psychological: Reports: no symptoms. Objective Last 24 Hrs of Vital Signs/I&O Vital Signs Date Time Temp Pulse Resp B/P B/P Pulse O2 O2 Flow FiO2 Mean Ox Delivery Rate 07/13 1002 Nasal 2.0L Cannula 07/13 0800 100.2 98 14 104/52 07/13 0630 98.8 99 18 114/60 94 Nasal Cannula 07/13 0000 98.0 90 22 108/50 07/13 0000 94 Nasal 2.0L Cannula 07/12 2200 98.0 07/12 2049 100.0 07/12 2004 100.0 90 20 108/50 94 Nasal 2.0L Cannula 07/12 1800 98.8 92 14 106/50 07/12 1600 98.7 88 14 102/54 07/12 1508 98.4 92 20 108/60 94 Nasal 2.0L Cannula 07/12 1400 98.8 102 16 110/54 07/12 1330 98.7 102 16 110/54 07/12 1200 98.9 80 14 108/54 07/12 1036 94 Nasal 2.0L Cannula Intake & Output 07/13 1600 07/13 0800 07/13 0000 Intake Total 120 Output Total Balance 120 Intake, Oral 120 Number 2 1 Bowel Movements Physical Exam General Appearance: Alert, Oriented X3, Cooperative, No Acute Distress Skin Temp/Moisture Exam: Warm/Dry HEENT: Atraumatic, PERRLA, EOMI Neck: Supple Cardiovascular: Normal S1, Normal S2 Lungs: B/L DECREASED BREATH SOUNDS Abdomen: Soft, No Tenderness Neurological: Normal Speech, Sensation Intact Extremities: No Edema Assessment/Plan Assessment: Pateint is a 57-year-old female with past medical history of hyperlipidemia, alcohol abuse, depression, peptic ulcer disease who presents with complaints of stool incontinence and poor appetite. Assessment and Plan: Hypokalemia and hypomagnesemia: Patient came in with severe hypokalemia and hypomagnesemia likely secondary to severe diarrhea and alcoholism. Her last episode of diarrhea was last night. -Will continue repletion of K and Mg as necessary. Today his potassium is 2.7 and magnesium is 1.0 and we will repleted both magnesium and potassium through IV. -Her stool studies and C.diff have been negative. -Patient's potassium level and magnesium level have improved. We will continue monitoring it. Decompensated liver cirrhosis: Her CT scan shows chronic hepatosplenomegaly and hepatic cirrhosis likely secondary to heavy alcohol use. Her lab studies showed elevated INR of 2.0 and direct bilirubin of 8. Abdominal U/S shows 5 cm hypoechoic region within the right hepatic lobe concerning for malignancy. Multiphasic CT on 07/09 showed no suspicious liver lesion. The questionable lesion on U/S was lobular portion of the right lobe of liver and not a hepatic mass. -She has a high MELD score of 22 points and Maddrey's Discriminamt Function of 58.6 points. Both indicate a fairly poor prognosis. -Will keep her off steroids for now. -Her total and direct bilirubin have trended up since 07/08 -She has been started on Rifaximin BID. -Alpha fetoprotein - negative -If patient spikes fever we will do cultures, blood and urine also c-xray to find the source of infection.(07/13/17) -We will follow the cbc for wbc count. Anemia: -She received 1unit PRBC on 07/08. -Her repeat CBC has been stable around 8 since transfusion. -Her MCV is elevated likely due to alcohol use. -continue folate supplementation History of Alcohol Use: -Ativan per CIWA -Continue folate, thiamine, multivitamins supplementation. DVT Prophylaxis: Elevated INR of 1.5. Will continue with ALPS -One dose of SC Vit K 10mg was administered on 07/08. Diet: Regular Code: Full Code Problem List: 1. Hyperbilirubinemia 2. Alcohol dependence 3. Decompensated hepatic cirrhosis Pain Ratin Pain Location: NONE Pain Goal: Remain pain free Pain Plan: TYLENOL FOR MILD PAIUN Tomorrow's Labs & Rationales: BEP/CBC Matthias PAULSON,Tony 07/13/17 1242: Attending MD Review Statement Attending Statement Attending MD Statement: examined this patient, discuss w/resident/PA/EXCAVATOR OPERATOR, agreed w/resident/PA/EXCAVATOR OPERATOR, reviewed EMR data (avail), discussed with nursing, discussed with case mgmt, amended to note Attending Assessment/Plan: Patient seen and examined. She is more alert today And not as drowsy compared to yesterday. Yesterday she had tried to get out of bed unassisted and fell to the ground. She did not lose consciousness and fortunately sustained no injury. Her CIWA scores have been 5 or below overnight. Patient however is running low-gradeTemperature. She had a T-max of 100.0 yesterday and today has a T-max of 100.2 so far. She denies cough. Denies chest pain or shortness of breath. Denies nausea vomiting. Denies dysuria or polyuria. On examination lungs are clear bilaterally. Heart sounds are regular. Abdomen is soft and nontender. She has no peripheral edema. She has no skin rash. White cell count was elevated yesterday. Labs are pending today. Stool guaiac is negative. Hemoglobin this morning is pending. Recommendations: -If patient spikes a fever or a white cell count is trending upwards today obtain blood cultures, urine cultures and chest x-ray. Check urinalysis. -Her anemia is likely secondary to her underlying cirrhosis. Stable hemoglobin level following transfusion makes hemolysis appear less likely. Stool guaiac was reported to be negative. -Continue rifaximin to prevent hepatic encephalopathy. Given improvement of her mental status recommend discontinuing her Ativan. - Physical therapy consultation for discharge planning. -Patient shows no clinical evidence of infection will [facility] to [facility] for [facility]-term rehabilitation due to deconditioning
[2017-07-13 11:48] LABS: ABSOLUTE BASOPHIL COUNT 0 /CUMM (0.0-0.2); ABSOLUTE EOSINOPHIL COUNT 0.1 /CUMM (0.0-0.7); ABSOLUTE GRANULOCYTE CT 7.2 /CUMM (1.4-6.5); ABSOLUTE LYMPH COUNT 1.9 /CUMM (1.2-3.4); ABSOLUTE MONOCYTE COUNT 1.3 /CUMM (0.10-0.60); BASOPHIL % 0 % (0.0-2.0); GRANULOCYTE % 68.9 % (42.2-75.2); HEMATOCRIT 23.5 % (37-47); MEAN CORPUSCULAR HGB CONC 33.7 G/DL (33.0-37.0); MEAN CORPUSCULAR VOLUME 112.8 FL (81.0-99.0); MEAN PLATELET VOLUME 8.6 FL (7.4-10.4); PLATELET COUNT 208 /CUMM (130-400); RBC DISTRIBUTION WIDTH 20.7 % (11.5-14.5); RED BLOOD CELL CT 2.08 /CUMM (4.20-5.40); WHITE BLOOD CELL COUNT 10.4 /CUMM (4.8-10.8)
--- NOTE | 2017-07-13 22:17 | Event Note ---
Event Note Event Note: I was informed that the patient had a temperature of 103.1. Ms Franklin is a 57 year old female with past medical history of hyperlipidemia, alcohol abuse, alcoholic liver cirrhosis, depression, peptic ulcer disease who presented with complaints of diarrhea, fecal incontinence and poor appetite. Vitals Temperature 103.1 at 9:35 PM, blood pressure 100/60, pulse rate 111. On examination Patient was lying in her bed in no acute distress. She is alert and oriented 3. She looks jaundiced and mild dehydration. She says she feels warm. She denies chest pain, chest pressure, abdominal pain, nausea, vomiting. Patient says she had 3 episodes of loose bowel stools since morning with no blood. Reviewed EMR-patient had 6 bowel movements since morning. CVS-S1-S2 RS-normal vesicular breath sounds Per rectum and-hepatosplenomegaly plus bowel sounds plus. No tenderness. MANAGER CONCRETE-cranial nerves intact. Strength 5 x 5. Patient was initially given a dose of ceftriaxone to cover for spontaneous bacterial peritonitis, however it was discontinued and the dose of ceftaz for gram-negative and pseudomonal coverage, vancomycin for gram-positive coverage, metronidazole for C. difficile was given since her present we don't know what is the source of infection. sent out for blood culture, urine culture, sputum culture, C. difficile, cxy. IV Tylenol was given for fever. We will get an ID consult in a.m if needed CAT abdomen scan in a.m. Update-temperature 99.2, blood pressure-106/52, pulse rate 87.
--- NOTE | 2017-07-13 23:26 | RADIOLOGY REPORT ---
EXAMINATION: XR PORTABLE CHEST CLINICAL INFORMATION: Fever COMPARISON: 07/07/2017 TECHNIQUE: AP portable upright view of the chest FINDINGS: There is bibasilar subsegmental atelectasis. No focal consolidation, pneumothorax, or pleural effusion. Cardiomediastinal contours are unchanged. Pulmonary vasculature is normal. Mild osteoarthritis is present at the acromioclavicular joint. No acute osseous findings. IMPRESSION: No acute cardiopulmonary findings
[2017-07-14 02:58] VITALS: BP 106/52
[2017-07-14 05:16] VITALS: BP 100/52
--- NOTE | 2017-07-14 07:36 | PN- Housestaff ---
[facility] 07/14/17 0735: Subjective Follow-up For: Hyperbilirubinemia Hypokalemia and hypomagnesemia Decompensated liver cirrhosis Non healing ulcer of right big toe Subjective: Patient had a fever last night 103.1. Blood and urine culture were obtained with urinalysis. Chest x-ray was done that was negative chest showing bibasilar atelectasis. Patient seen and examined this morning. She was lying in bed comfortably. Patient reported that she slept well last night. Patient denied any chest pain, short of breath, nausea, vomiting, abdominal pain and dysuria. Patient's IV line is clear no signs of inflammation or infection. Review of Systems Constitutional: Reports: see HPI. EENTM: Reports: no symptoms. Cardiovascular: Reports: no symptoms. Respiratory: Reports: no symptoms. Gastrointestinal: Reports: no symptoms. Genitourinary: Reports: no symptoms. Musculoskeletal: Reports: no symptoms. Neurological/Psychological: Reports: no symptoms. Objective Last 24 Hrs of Vital Signs/I&O Vital Signs Date Time Temp Pulse Resp B/P B/P Pulse O2 O2 Flow FiO2 Mean Ox Delivery Rate 07/14 0516 97.7 86 18 100/52 95 Room Air Room Air 07/14 0258 98.1 87 18 106/52 94 Room Air 07/14 0000 Room Air 07/13 2337 99.2 07/13 2334 99.2 102 104/50 07/13 2235 103.1 111 18 100/60 93 07/13 2225 103.0 07/13 2202 103.1 07/13 1401 99.0 96 20 100/70 95 Nasal 1.0L Cannula 07/13 1129 Nasal 1.0L Cannula 07/13 1026 Nasal 2.0L Cannula 07/13 1002 Nasal 2.0L Cannula Intake & Output 07/14 1600 07/14 0800 07/14 0000 Intake Total 480 480 Output Total 350 Balance 130 480 Intake, Oral 480 480 Number 2 4 Bowel Movements Output, Urine 350 Physical Exam General Appearance: Alert, Oriented X3, Cooperative, No Acute Distress Skin Temp/Moisture Exam: Warm/Dry HEENT: Atraumatic, PERRLA, EOMI Neck: Supple Cardiovascular: Normal S1, Normal S2 Lungs: Clear to Auscultation Abdomen: Soft, No Tenderness Neurological: Normal Speech, Normal Tone, Sensation Intact Extremities: No Edema Assessment/Plan Assessment: Pateint is a 57-year-old female with past medical history of hyperlipidemia, alcohol abuse, depression, peptic ulcer disease who presents with complaints of stool incontinence and poor appetite. Assessment and Plan: Hypokalemia and hypomagnesemia: Patient came in with severe hypokalemia and hypomagnesemia likely secondary to severe diarrhea and alcoholism. Her last episode of diarrhea was last night. -Will continue repletion of K and Mg as necessary. Today his potassium is 2.7 and magnesium is 1.0 and we will repleted both magnesium and potassium through IV. -Her stool studies and C.diff have been negative. -Patient's potassium level and magnesium level have improved. We will continue monitoring it. Decompensated liver cirrhosis: Her CT scan shows chronic hepatosplenomegaly and hepatic cirrhosis likely secondary to heavy alcohol use. Her lab studies showed elevated INR of 2.0 and direct bilirubin of 8. Abdominal U/S shows 5 cm hypoechoic region within the right hepatic lobe concerning for malignancy. Multiphasic CT on 07/09 showed no suspicious liver lesion. The questionable lesion on U/S was lobular portion of the right lobe of liver and not a hepatic mass. -She has a high MELD score of 22 points and Maddrey's Discriminamt Function of 58.6 points. Both indicate a fairly poor prognosis. -Will keep her off steroids for now. -Her total and direct bilirubin have trended up since 07/08 -She has been started on Rifaximin BID. -Alpha fetoprotein - negative -If patient spikes fever we will do cultures, blood and urine also c-xray to find the source of infection.(07/13/17) -We will follow the cbc for wbc count. Non healing ulcer of right big toe: -Dry gangreen of 1st tarsometatarsal joint. -We will follow the x-ray results if it shows suspecion of osteomyelitis , we will get MRI. Anemia: -She received 1unit PRBC on 07/08. -Her repeat CBC has been stable around 8 since transfusion. -Her MCV is elevated likely due to alcohol use. -continue folate supplementation History of Alcohol Use: -Ativan per CIWA -Continue folate, thiamine, multivitamins supplementation. DVT Prophylaxis: Elevated INR of 1.5. Will continue with ALPS -One dose of SC Vit K 10mg was administered on 07/08. Diet: Regular Code: Full Code Problem List: 1. Decompensated hepatic cirrhosis 2. Diarrhea 3. Hyperbilirubinemia Pain Ratin Pain Location: none Pain Goal: Remain pain free Pain Plan: tylenol for mild pain Tomorrow's Labs & Rationales: cbc/bep Matthias PAULSONTony 07/14/17 1140: Attending Review Statement Attending Statement Attending MD Statement: examined this patient, discuss w/resident/PA/HEALTH AND FITNESS INSTRUCTOR, agreed w/resident/PA/HEALTH AND FITNESS INSTRUCTOR, reviewed EMR data (avail), discussed with nursing, discussed with case mgmt, amended to note Attending Assessment/Plan: Patient seen and examined. Spiked fever 103.1 yesterday. She was started empirically on vancomycin, cefazolin and Flagyl by the night service. She continues to have loose stools and had 11 bowel movements yesterday. A white cell count is trending upwards to 12,000 today. She is alert and oriented 3 conversing appropriately and shows no evidence of alcohol withdrawal. She denies any respiratory symptoms. Denies nausea vomiting. Denies abdominal pain. Denies lower extremity swelling. On examination she is jaundiced, heart sounds are regular with a 2/6 systolic normal. Lungs are clear to auscultation bilaterally. Abdomen soft and nontender. She has no peripheral edema. She has chronic dry gangrenous ulceration at the base of her right big toe. This has been present for several years according to the patient. She is to follow-up with a responder for debridement but states that in recent time she has been debriding it by herself. Chest x-ray done overnight shows no evidence of pneumonia Problems: 1. Fever; query source 2. Chronic dry gangrene right lower extremity. 3. Alcoholic cirrhosis 4. Hyperbilirubinemia 5. Deconditioning 6. Anemia status post 1 PRBC transfusion at this admission Plan: -Follow-up blood cultures. -ID consultation for antibiotic recommendations. -Patient continues diarrhea, obtain PCR to rule out C. difficile. -Transfuse 1 unit of PRBC. Her anemia is likely secondary to her cirrhosis. Stool guaiac is negative ruling out GI loss. She doesn't have markedly elevated indirect bilirubin level. Check an LDH and haptoglobin level check peripheral smear and follow-up with the laboratory directly for results.
[2017-07-14 09:23] LABS: ABSOLUTE BASOPHIL COUNT 0 /CUMM (0.0-0.2); ABSOLUTE EOSINOPHIL COUNT 0.1 /CUMM (0.0-0.7); ABSOLUTE GRANULOCYTE CT 7.8 /CUMM (1.4-6.5); ABSOLUTE LYMPH COUNT 2.9 /CUMM (1.2-3.4); ABSOLUTE MONOCYTE COUNT 1.5 /CUMM (0.10-0.60); BASOPHIL % 0.4 % (0.0-2.0); EOSINOPHIL % 0.8 % (0-5); MEAN CORPUSCULAR HGB CONC 33.2 G/DL (33.0-37.0); MEAN CORPUSCULAR VOLUME 111.6 FL (81.0-99.0); MEAN PLATELET VOLUME 8.4 FL (7.4-10.4); RBC DISTRIBUTION WIDTH 20.7 % (11.5-14.5); WHITE BLOOD CELL COUNT 12.3 /CUMM (4.8-10.8)
[2017-07-14 10:05] LABS: HEMATOCRIT 22.3 % (37-47)
[2017-07-14 10:07] LABS: PLATELET COUNT 213 /CUMM (130-400)
[2017-07-14 13:54] VITALS: BP 110/60
--- NOTE | 2017-07-14 15:29 | RADIOLOGY REPORT ---
EXAMINATION: XR FOOT, RIGHT CLINICAL INFORMATION: Fever and leukocytosis. Right foot dry ulcer. Question osteomyelitis. COMPARISON: 02/29/2012 TECHNIQUE: Right foot, 3 views FINDINGS: Compared to 02/29/2012, there has been interval removal of a subtalar arthroereisis device. Also, lateral calcaneal plate has been removed. There are two residual screws within the anterior calcaneus. The lateral view is suboptimally positioned. There appears to be pes planus deformity; the subtalar joint space is poorly visualized on this view. Surgical changes from remote osteotomy/bunionectomy of the great toe with three intact screws of the first metatarsal. Previously noted hardware in the proximal aspect of the metatarsal has been removed. There is nonuniform joint space narrowing and osteophyte formation of the degenerated great toe metatarsophalangeal joint. No osseous erosion, periostitis or acute fracture. There appears to be skin/soft tissue irregularity lateral to the great toe MTP joint without soft tissue gas. IMPRESSION: No radiographic evidence of osteomyelitis in the right foot.
--- NOTE | 2017-07-14 15:58 | Cons- Infect Disease ---
General Information and HPI Consulting Request Date of Consult: 07/14/17 Requested By: Matthias PAULSON,Tony Reason for Consult: Fever spike with no obvious source Source of Information: patient, old records History of Present Illness: This is a 57-year-old woman with a history of alcohol abuse, peptic ulcer disease, hyperlipidemia and depression admitted on July 06 with a 4 day history of fecal incontinence associated with anorexia and several episodes of vomiting. On admission she was afebrile. Laboratory data revealed a white blood cell count of 15,000, with 85 segs and 8 bands, BUN/creatinine 17 and 1.0, potassium 2.0, magnesium 0.8, bilirubin 10.2 (8.5 direct) alkaline phosphatase 269, AST/ALT 76 and 20, serum alcohol level less than 10, INR 2.05. Chest x-ray was negative. CT of the abdomen and pelvis revealed hepatosplenomegaly with hepatic cirrhosis, gallbladder sludge with no evidence of acute cholecystitis, trace ascites and gas within the urinary bladder. She was treated symptomatically and was evaluated by GI. Her diarrhea apparently improved initially though recently she has had multiple bowel movements recorded. She remained afebrile initially, with normalization of her white blood cell count, but she developed low-grade fevers beginning July 09 and on July 13 she spiked to 103.1, at which time she was cultured and begun on Vancomycin, Flagyl and Ceftazidime. At present she denies any abdominal pain and now notes some control over her bowels. She denies any respiratory or urinary symptoms at this time. Allergies/Medications Allergies: Coded Allergies: NO KNOWN ALLERGIES (01/10/12) Home Med List: Escitalopram Oxalate 20 MG TABLET 1 TAB PO DAILY MENTAL HEALTH (Reported) Lorazepam 0.5 MG TABLET 1 TAB PO BIDP PRN ANXIETY (Reported) Pantoprazole Sodium 40 MG TABLET.DR 1 TAB PO PRN GI (Reported) Past History Travel History Traveled to [place] past 21 day No Medical History Blood Transfusion Hx: No Neurological: NONE EENT: NONE Cardiovascular: hyperlipidemia Respiratory: NONE Gastrointestinal: peptic ulcer disease Hepatic: NONE Renal: NONE Musculoskeletal: chronic back pain Psychiatric: alcohol dependence, depression Endocrine: NONE Blood Disorders: NONE Cancer(s): NONE 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 Home Services at Home: None Smoking Status: Current Everyday Smoker ETOH Use: alcoholic Illicit Drug Use: denies illicit drug use Review of Systems Review of Systems Skin: Reports: lesions (right foot x 5 years). Exam & Diagnostic Data Last 24 Hrs of Vital Signs/I&O Vital Signs Date Time Temp Pulse Resp B/P B/P Pulse O2 O2 Flow FiO2 Mean Ox Delivery Rate 07/14 1354 98.0 100 20 110/60 97 Room Air 07/14 0516 97.7 86 18 100/52 95 Room Air Room Air 07/14 0258 98.1 87 18 106/52 94 Room Air 07/14 0000 Room Air 07/13 2337 99.2 07/13 2334 99.2 102 104/50 07/13 2235 103.1 111 18 100/60 93 07/13 2225 103.0 07/13 2202 103.1 Intake & Output 07/14 1600 07/14 0800 07/14 0000 Intake Total 480 480 Output Total 400 350 Balance -400 130 480 Intake, Oral 480 480 Number 2 2 4 Bowel Movements Output, Urine 400 350 Physical Exam Other Physical Findings: MAXIMUM TEMPERATURE 103.1. She is awake and alert in no acute distress, mildly confused with regard to dates. Skin jaundiced. HEENT scleral icterus, with poor dentition. Neck is supple with no adenopathy. Lungs crackles at the left base. Heart regular rhythm with no murmur. Abdomen is distended, nontender, with positive bowel sounds. Back no CVA tenderness. Extremities necrotic eschar on the medial aspect of her right foot, with no surrounding inflammation; no cyanosis, clubbing or edema. Neuro is without focality. Last 24 Hours of Lab Results: Laboratory Tests 07/14 07/14 1520 0719 Chemistry Sodium (137 - 145 mmol/L) 133 L Potassium (3.5 - 5.1 mmol/L) 3.6 Chloride (98 - 107 mmol/L) 104 Carbon Dioxide (22 - 30 mmol/L) 20 L Anion Gap (5 - 16) 10 BUN (7 - 17 mg/dL) 20 H Creatinine (0.5 - 1.0 mg/dL) 1.3 H Estimated GFR (>60 ml/min) 42 L BUN/Creatinine Ratio (7 - 25 %) 15.4 Magnesium (1.6 - 2.3 mg/dL) 1.9 Total Bilirubin (0.2 - 1.3 mg/dL) 13.1 H Direct Bilirubin (< 0.4 mg/dL) 11.6 H AST (14 - 36 U/L) 61 H ALT (9 - 52 U/L) 25 Alkaline Phosphatase (<127 U/L) 190 H Lactate Dehydrogenase (313 - 618 U/L) 336 Total Protein (6.3 - 8.2 g/dL) 5.5 L Albumin (3.5 - 5.0 g/dL) 2.2 L Hematology CBC w Diff MAN DIFF ORDERED WBC (4.8 - 10.8 /CUMM) 12.3 H RBC (4.20 - 5.40 /CUMM) 2.00 L Hgb (12.0 - 16.0 G/DL) 7.4 *L Hct (37 - 47 %) 22.3 L MCV (81.0 - 99.0 FL) 111.6 H MCH (27.0 - 31.0 PG) 37.0 H RDW (11.5 - 14.5 %) 20.7 H Plt Count (130 - 400 /CUMM) 213 MPV (7.4 - 10.4 FL) 8.4 Gran % (42.2 - 75.2 %) 63.0 Lymphocytes % (20.5 - 51.1 %) 23.5 Monocytes % (1.7 - 9.3 %) 12.3 H Eosinophils % (0 - 5 %) 0.8 Basophils % (0.0 - 2.0 %) 0.4 Absolute Granulocytes (1.4 - 6.5 /CUMM) 7.8 H Segmented Neutrophils (42.2 - 75.2 %) 76 H Band Neutrophils (0.0 - 5.0 %) 3 Absolute Lymphocytes (1.2 - 3.4 /CUMM) 2.9 Lymphocytes (20.5 - 51.1 %) 9 L Monocytes (1.7 - 9.3 %) 9 Absolute Monocytes (0.10 - 0.60 /CUMM) 1.5 H Eosinophils (0 - 5.0 %) 2 Absolute Eosinophils (0.0 - 0.7 /CUMM) 0.1 Basophils (0.0 - 2.0 %) 1 Absolute Basophils (0.0 - 0.2 /CUMM) 0 Platelet Estimate (ADEQUATE) VERIFIED BY SMEAR Anisocytosis 1+ Macrocytic Cells 1+ Stomatocytes 1+ PUBS MCHC (33.0 - 37.0 G/DL) 33.2 Haptoglobin Pending 07/13 1800 Urines Urine Color (YEL,AMB,STR) CALOS Urine Clarity (CLEAR) HAZY H Urine pH (5.0 - 8.0) 6.5 Ur Specific [place]go (1.001 - 1.035) 1.015 Urine Protein (NEG,<30 MG/DL) 30 H Urine Ketones (NEG) TRACE H Urine Nitrite (NEG) NEG Urine Bilirubin (NEG) POS@ICTO H Urine Urobilinogen (0.1 - 1.0 EU/dl) 4.0 H Ur Leukocyte Esterase (NEG) TRACE H Ur Microscopic SEDIMENT EXAMINED Urine RBC (0 - 5 /HPF) 3-5 Urine WBC (0 - 2 /HPF) 5-10 H Ur Epithelial Cells (NONE,FEW) MOD H Urine Bacteria (NEG/NONE) MANY H Urine Mucus (FEW,NONE) FEW Urine Hemoglobin (NEG) NEG Urine Glucose (N MG/DL) NEG Last 24 Hours of Doug Results: Blood cultures July 07 negative Blood cultures July 13 negative Stool culture July 07 negative Stool C. difficile July 07 negative Urine culture July 14 pending Stool C. difficile July 14 pending Diagnostic Data Recent Imaging Findings: Chest x-ray July 06 negative. Chest x-ray July 13 bibasilar subsegmental atelectasis X-ray of the right foot July 14 no evidence of osteomyelitis CT of the abdomen and pelvis July 06 revealed hepatosplenomegaly with hepatic cirrhosis, gallbladder sludge with no evidence of acute cholecystitis, trace ascites and gas within the urinary bladder. CT of the abdomen and pelvis with contrast July 09 reveals small bilateral effusions with bibasilar atelectasis, cirrhosis of the liver with hepatosplenomegaly and a small volume of abdominal ascites Right upper quadrant ultrasound July 07 reveals hepatomegaly with a small amount of pericholecystic fluid Assessment/Plan Assessment/Plan Impression: This is a 57-year-old woman with a history of alcohol abuse, peptic ulcer disease, hyperlipidemia and depression admitted on July 06 with a 4 day history of fecal incontinence associated with anorexia and several episodes of vomiting, found to be afebrile with an initial leukocytosis and bandemia, which resolved, anemia, hypokalemia and hyperbilirubinemia, with a CT of the abdomen and pelvis revealing hepatosplenomegaly with hepatic cirrhosis, gallbladder sludge with no evidence of acute cholecystitis, trace ascites and gas within the urinary bladder now with the development of a high fever and mild leukocytosis with no obvious focus of infection. Possible sources of infection include the abdomen, for example SBP, though her recent CT scans have revealed only trace ascites, or colitis, with ongoing diarrhea, but with no history of recent antibiotics to suggest C. difficile, the lungs, for example aspiration, with a mild cough noted, though her respiratory status is stable, the urinary tract, with a report of gas in the bladder on the initial CT scan, raising concern for a enterovesical fistula, though she denies any urinary symptoms and her urinalysis is not particularly impressive. Her right foot necrotic eschar is chronic and, with no surrounding inflammation, is unlikely to explain her fever. A noninfectious process, such as alcohol-induced hepatitis could also be considered. Suggestion: 1. GI follow-up regarding her continued diarrhea 2. Follow-up stool for C. difficile 3. Repeat CT of the chest, abdomen and pelvis 4. Paracentesis if she has increased ascites 5. Follow-up recent urine and blood cultures 6. Discontinue Ceftazidime 7. Begin Ceftriaxone 1 g IV every 24 hours 8. Continue Flagyl pending above Iliana Maria MD will be covering until July 18 Consult Acknowledgment - Thank you for your consult request.
--- NOTE | 2017-07-14 17:48 | CT SCAN REPORT ---
EXAMINATION: CT CHEST ABDOMEN AND PELVIS WITHOUT CONTRAST CLINICAL INFORMATION: Pneumonia. Fever with increased white blood cell count. SBP. COMPARISON: CT of the abdomen and pelvis 07/09/2017. TECHNIQUE: Multidetector volumetric imaging was performed from the superior aspect of the liver through the pubic symphysis. Sagittal and coronal reformatted images were obtained on the technologist's workstation. DLP: 622 mGy-cm FINDINGS: CHEST: LUNGS: The central airways are patent. The lungs are clear with no evidence of consolidation. There is minimal bibasilar subsegmental atelectasis. No pleural effusion or pneumothorax. There is a 5 mm nodule in the right lower lobe (series 604 image [id number]). MEDIASTINUM: The mediastinum is normal. Central vascular structures are unremarkable allowing for mild atheromatous changes. No hilar or mediastinal lymphadenopathy. The heart is of normal size. There is no pericardial effusion. CHEST WALL/AXILLA: No lymphadenopathy. No chest wall mass. BONES: No destructive lesions are seen within the osseous structures. LIVER, GALLBLADDER, AND BILIARY TREE: The liver is enlarged measuring up to 20 cm in maximal SI dimension and demonstrates a lobulated contour. The right posterior hepatic lobe demonstrates a more prominent lobulated contour which is not well-defined on the noncontrast study. The gallbladder is markedly distended but without calcified stones. There is hyperdense material layering within the gallbladder which may be related to vicarious excretion from prior contrast. There is no pericholecystic inflammatory change. PANCREAS: Unremarkable. SPLEEN: Enlarged measuring up to 18.7 cm in maximal SI dimension. ADRENAL GLANDS: Unremarkable. KIDNEYS AND URETERS: The kidneys are normal in size, shape, and attenuation. No hydronephrosis, hydroureter, or calculi seen. No perinephric stranding. BLADDER: Not well distended but grossly within normal limits. GASTROINTESTINAL TRACT: There is stable appearing trace amount of free fluid within the bilateral right more than left paracolic gutters with minimal associated inflammatory stranding. The small bowel loops are nondilated. There is sigmoid and descending colonic diverticulosis without focal diverticulitis. There is no free air. The appendix is normal and air-filled. ABDOMINAL WALL: No significant hernia is appreciated. LYMPH NODES: Normal. VASCULAR: Atheromatous changes of the abdominal aorta and its branches without focal aneurysm. The abdominal aorta maximally measures up to 2.9 cm. PELVIC VISCERA: No evidence of uterine or adnexal mass. OSSEOUS STRUCTURES: Old healed fractures of the bilateral pubic rami. Multilevel degenerative changes in the lower lumbar spine. No lytic or blastic lesions are seen. IMPRESSION: 1. No acute findings in the chest. Specifically there is no evidence of consolidation or pleural effusion. A 5 mm nodule is identified in the right lower lobe. According to the UPDATED 2017 Fleischner Society recommendations, the advised follow-up imaging for solid nodules < 6 mm is: LOW RISK PATIENT: No routine follow-up. HIGH RISK PATIENT: Optional CT at 12 months. 2. No new inflammatory changes within the abdomen or pelvis. 3. Stable appearance of hepatosplenomegaly. 4. Focal prominent undulating contour of the right posterior hepatic lobe. Consider further evaluation with liver MRI to exclude an underlying mass. 5. Mild nonspecific fluid and minimal stranding in the bilateral paracolic gutters. 6. Atheromatous change of the abdominal aorta which measures up to 2.9 cm. 7. Colonic diverticulosis without evidence of diverticulitis. RECOMMENDATION: Liver MRI to exclude an underlying hepatic mass.
[2017-07-14 21:47] VITALS: BP 102/58
[2017-07-14 23:02] LABS: ABSOLUTE BASOPHIL COUNT 0 /CUMM (0.0-0.2); ABSOLUTE EOSINOPHIL COUNT 0.1 /CUMM (0.0-0.7); ABSOLUTE GRANULOCYTE CT 8.7 /CUMM (1.4-6.5); ABSOLUTE LYMPH COUNT 2.8 /CUMM (1.2-3.4); ABSOLUTE MONOCYTE COUNT 1.9 /CUMM (0.10-0.60); BASOPHIL % 0.1 % (0.0-2.0); EOSINOPHIL % 0.7 % (0-5); GRANULOCYTE % 64.4 % (42.2-75.2); MEAN CORPUSCULAR HGB 35.8 PG (27.0-31.0); MEAN CORPUSCULAR HGB CONC 33.6 G/DL (33.0-37.0); MEAN CORPUSCULAR VOLUME 106.6 FL (81.0-99.0); MEAN PLATELET VOLUME 9.2 FL (7.4-10.4); PLATELET COUNT 225 /CUMM (130-400); RBC DISTRIBUTION WIDTH 23.1 % (11.5-14.5); RED BLOOD CELL CT 2.34 /CUMM (4.20-5.40); WHITE BLOOD CELL COUNT 13.4 /CUMM (4.8-10.8)
[2017-07-15 06:43] VITALS: BP 104/60
--- NOTE | 2017-07-15 07:01 | PN- Housestaff ---
[facility] Subjective Follow-up For: Hyperbilirubinemia Hypokalemia and hypomagnesemia Decompensated liver cirrhosis Non healing ulcer of right big toe Sepsis due to gram -ve royce bacteremia Anemia s/p one blood transfusion Subjective: No overnight events. Patient remained afebrile overnight. Patient seen and examined this morning. She denied any chest pain, short of breath, nausea, vomiting, abdominal pain, chills, fever and dysuria. Patient reported incontinence of stool and urine. Patient's blood culture came back growing gram -negative rods and she was febrile yesterday. She is already on ceftriaxone. Patient also reported having weakness. Review of Systems Constitutional: Reports: weakness. EENTM: Reports: no symptoms. Cardiovascular: Reports: no symptoms. Respiratory: Reports: no symptoms. Gastrointestinal: Reports: no symptoms. Genitourinary: Reports: no symptoms. Musculoskeletal: Reports: no symptoms. Neurological/Psychological: Reports: no symptoms. Objective Last 24 Hrs of Vital Signs/I&O Vital Signs Date Time Temp Pulse Resp B/P B/P Pulse O2 O2 Flow FiO2 Mean Ox Delivery Rate 07/15 0643 98.8 90 18 104/60 94 Room Air 07/14 2147 99.2 96 18 102/58 95 Room Air 07/14 1354 98.0 100 20 110/60 97 Room Air Intake & Output 07/15 1600 07/15 0800 07/15 0000 Intake Total 220 1150 Output Total 800 Balance 220 350 Intake, Blood 350 Product Intake, IV 120 Intake, Oral 100 800 Number 4 Bowel Movements Output, Urine 800 Physical Exam General Appearance: Alert, Oriented X3, Cooperative, No Acute Distress Skin Temp/Moisture Exam: Warm/Dry HEENT: Atraumatic, PERRLA, EOMI Neck: Supple Cardiovascular: Normal S1, Normal S2 Lungs: Clear to Auscultation Abdomen: Soft, No Tenderness Neurological: Normal Speech, Normal Tone, Sensation Intact Extremities: No Edema Assessment/Plan Assessment: Pateint is a 57-year-old female with past medical history of hyperlipidemia, alcohol abuse, depression, peptic ulcer disease who presents with complaints of stool incontinence and poor appetite. Assessment and Plan: Sepsis secondary to gram -ve bacteremia: -patient is getting iv ceftriaxone and flagyl. She developed fever 103.1 and wbc count 13.4. Coundn't find the source yet. -Ct chest, abdomen and pelvis was negative for source of infection. Hypokalemia and hypomagnesemia: Patient came in with severe hypokalemia and hypomagnesemia likely secondary to severe diarrhea and alcoholism. Her last episode of diarrhea was last night. -Will continue repletion of K and Mg as necessary. Today his potassium is 2.7 and magnesium is 1.0 and we will repleted both magnesium and potassium through IV. -Her stool studies and C.diff have been negative. -Patient's potassium level and magnesium level have improved. We will continue monitoring it. Decompensated liver cirrhosis: Her CT scan shows chronic hepatosplenomegaly and hepatic cirrhosis likely secondary to heavy alcohol use. Her lab studies showed elevated INR of 2.0 and direct bilirubin of 8. Abdominal U/S shows 5 cm hypoechoic region within the right hepatic lobe concerning for malignancy. Multiphasic CT on 07/09 showed no suspicious liver lesion. The questionable lesion on U/S was lobular portion of the right lobe of liver and not a hepatic mass. -She has a high MELD score of 22 points and Maddrey's Discriminamt Function of 58.6 points. Both indicate a fairly poor prognosis. -Will keep her off steroids for now. -Her total and direct bilirubin have trended up since 07/08 -She has been started on Rifaximin BID. -Alpha fetoprotein - negative -If patient spikes fever we will do cultures, blood and urine also c-xray to find the source of infection.(07/13/17) -We will follow the cbc for wbc count. Non healing ulcer of right big toe: -Dry gangreen of 1st tarsometatarsal joint. -We will follow the x-ray results if it shows suspecion of osteomyelitis , we will get MRI. Anemia: -She received 1unit PRBC on 07/08. -Her repeat CBC has been stable around 8 since transfusion. -Her MCV is elevated likely due to alcohol use. -continue folate supplementation History of Alcohol Use: -Ativan per CIWA -Continue folate, thiamine, multivitamins supplementation. DVT Prophylaxis: Elevated INR of 1.5. Will continue with ALPS -One dose of SC Vit K 10mg was administered on 07/08. Diet: Regular Code: Full Code Problem List: 1. Decompensated hepatic cirrhosis 2. Hyperbilirubinemia 3. Alcohol dependence 4. Diarrhea Pain Ratin Pain Location: none Pain Goal: Remain pain free Pain Plan: tylenol for mild pain Tomorrow's Labs & Rationales: cbc/bep/LFTs Matthias PAULSONAustyntimoteo 07/15/17 1052: Attending MD Review Statement Attending Statement Attending MD Statement: examined this patient, discuss w/resident/PA/MANAGER [employer]PORATE COMMUNICATIONS, agreed w/resident/PA/MANA[employer] COMM[employer]ICATIONS, reviewed EMR data (avail), discussed with nursing, discussed with case mgmt, amended to note Attending Assessment/Plan: Patient seen and examined. Resting comfortably not in any acute distress. No issues overnight reported by nursing staff. Afebrile overnight with MAXIMUM TEMPERATURE of 99.2. Hemodynamically stable. No new complaints this morning. She is alert and oriented 3. Conversing appropriately. Denies chest pain or shortness of breath. Denies cough. Denies abdominal pain. Denies dysuria. Blood cultures drawn yesterday currently growing gram-negative rods in one of 2 sets of cultures. She has no urinary complaints. She continues to have loose bowel movements. Fall bowel movements are documented yesterday. She has had for bowel movement documented so far today. Stool testing for PCR is negative. She has mild transaminitis consistent with alcoholic transaminitis. Bilirubin remains elevated. Hemoglobin level is stable. White cell count is trending down. On examination lungs are clear bilaterally. Abdomen is soft and nontender. She has no peripheral edema. Necrotic area on the right foot is unchanged. Repeat CT imaging was recommended by the ID service yesterday. No evidence of infectious etiology noted to have a 5 mm right lower lobe lung nodule. She is also noted to have Focal prominent undulating contour of the right posterior hepatic lobe. Liver MRI recommended to exclude an underlying mass. X-ray of the right foot shows no evidence of nausea by like this. Problems: 1. Sepsis secondary to gram-negative royce bacteremia. 2. Chronic dry gangrene right lower extremity. 3. Alcoholic cirrhosis 4. Hyperbilirubinemia 5. Deconditioning 6. Anemia status post 1 PRBC transfusion at this admission 7. Recurrent hypokalemia 8. Ongoing diarrhea. Plan: -Continue antibiotic therapy with ceftriaxone as recommended by the ID service yesterday. Follow-up with ID service regarding need to continue Flagyl. -Follow-up culture identification and sensitivity. -Supplement potassium orally. -Nursing staff are encouraged to mobilize patient. -Repeat urine culture as last specimen was consistent with contamination. -Workup for her diarrhea has been unrevealing. Stool cultures were negative. C. difficile PCR is negative. CT scan shows no evidence of colitis. Recommend evaluation by the gastroenterology service. -Obtain MRI to further evaluate hepatic lesion noted on CT scan. -Imaging revealed an incidental finding of a lung nodule. This will need to be followed up as an outpatient.
[2017-07-15 09:15] LABS: ABSOLUTE BASOPHIL COUNT 0 /CUMM (0.0-0.2); ABSOLUTE EOSINOPHIL COUNT 0.1 /CUMM (0.0-0.7); ABSOLUTE GRANULOCYTE CT 7.9 /CUMM (1.4-6.5); ABSOLUTE LYMPH COUNT 3.3 /CUMM (1.2-3.4); ABSOLUTE MONOCYTE COUNT 1.2 /CUMM (0.10-0.60); BASOPHIL % 0 % (0.0-2.0); EOSINOPHIL % 0.7 % (0-5); GRANULOCYTE % 63.2 % (42.2-75.2); HEMATOCRIT 25.4 % (37-47); MEAN CORPUSCULAR HGB 36.4 PG (27.0-31.0); MEAN CORPUSCULAR VOLUME 106.9 FL (81.0-99.0); MEAN PLATELET VOLUME 8.3 FL (7.4-10.4); PLATELET COUNT 215 /CUMM (130-400); RBC DISTRIBUTION WIDTH 23.3 % (11.5-14.5); RED BLOOD CELL CT 2.37 /CUMM (4.20-5.40); WHITE BLOOD CELL COUNT 12.5 /CUMM (4.8-10.8)
--- NOTE | 2017-07-15 13:12 | PN- Infect Dx ---
Subjective Subjective: Afebrile overnight. No chest pain, short of breath, nausea, vomiting, abdominal pain, chills, fever and dysuria. Incontinence of stool and urine reported. Feels weak. One BM. Review of Systems Comments: 12 points reviewed as noted, otherwise negative. Objective Last 24 Hrs of Vital Signs/I&O Vital Signs Date Time Temp Pulse Resp B/P B/P Pulse O2 O2 Flow FiO2 Mean Ox Delivery Rate 07/15 0800 Room Air 07/15 0643 98.8 90 18 104/60 94 Room Air 07/14 2147 99.2 96 18 102/58 95 Room Air 07/14 1354 98.0 100 20 110/60 97 Room Air Intake & Output 07/15 1600 07/15 0800 07/15 0000 Intake Total 220 1150 Output Total 800 Balance 220 350 Intake, Blood 350 Product Intake, IV 120 Intake, Oral 100 800 Number 4 Bowel Movements Output, Urine 800 Physical Exam Other Physical Findings: General Appearance: Alert, Oriented X3, Cooperative, Chronically ill Skin Temp/Moisture Exam: Warm/Dry/Jaundiced HEENT: Atraumatic, no thrush Neck: Supple, no CHARLI Cardiovascular: Normal S1, Normal S2 Lungs: Clear to Auscultation Abdomen: Soft, No Tenderness Neurological: Normal Speech, Normal Tone, Sensation Intact Extremities: No Edema Results Last 24 Hours of Lab Results: Laboratory Tests 07/15 07/14 0829 2230 Chemistry Sodium (137 - 145 mmol/L) 136 L Potassium (3.5 - 5.1 mmol/L) 3.2 L Chloride (98 - 107 mmol/L) 108 H Carbon Dioxide (22 - 30 mmol/L) 17 L Anion Gap (5 - 16) 11 BUN (7 - 17 mg/dL) 16 Creatinine (0.5 - 1.0 mg/dL) 1.1 H Estimated GFR (>60 ml/min) 51 L BUN/Creatinine Ratio (7 - 25 %) 14.5 Magnesium (1.6 - 2.3 mg/dL) 1.7 Total Bilirubin (0.2 - 1.3 mg/dL) 12.6 H Direct Bilirubin (< 0.4 mg/dL) 11.3 H AST (14 - 36 U/L) 60 H ALT (9 - 52 U/L) 24 Alkaline Phosphatase (<127 U/L) 201 H Total Protein (6.3 - 8.2 g/dL) 5.9 L Albumin (3.5 - 5.0 g/dL) 2.2 L Hematology CBC w Diff NO MAN DIFF REQ NO MAN DIFF REQ WBC (4.8 - 10.8 /CUMM) 12.5 H 13.4 H RBC (4.20 - 5.40 /CUMM) 2.37 L 2.34 L Hgb (12.0 - 16.0 G/DL) 8.6 L 8.4 L Hct (37 - 47 %) 25.4 L 25.0 L MCV (81.0 - 99.0 FL) 106.9 H 106.6 H MCH (27.0 - 31.0 PG) 36.4 H 35.8 H RDW (11.5 - 14.5 %) 23.3 H 23.1 H Plt Count (130 - 400 /CUMM) 215 225 MPV (7.4 - 10.4 FL) 8.3 9.2 Gran % (42.2 - 75.2 %) 63.2 64.4 Lymphocytes % (20.5 - 51.1 %) 26.2 20.7 Monocytes % (1.7 - 9.3 %) 9.9 H 14.1 H Eosinophils % (0 - 5 %) 0.7 0.7 Basophils % (0.0 - 2.0 %) 0 0.1 Absolute Granulocytes (1.4 - 6.5 /CUMM) 7.9 H 8.7 H Absolute Lymphocytes (1.2 - 3.4 /CUMM) 3.3 2.8 Absolute Monocytes (0.10 - 0.60 /CUMM) 1.2 H 1.9 H Absolute Eosinophils (0.0 - 0.7 /CUMM) 0.1 0.1 Absolute Basophils (0.0 - 0.2 /CUMM) 0 0 PUBS MCHC (33.0 - 37.0 G/DL) 34.0 33.6 07/14 1520 Hematology Haptoglobin Pending Last 24 Hours of Doug Results: SPEC #: [id number] NESTOR: 07/13/17 STATUS: RES RECD: 07/13/[address] [facility] [address]: Soo Arcos MD SOURCE: BLOOD ENTR: 07/13/[address] [facility] [address]: Tony Rizzo MD SPDESC: 1ST/VENOUS Traci PAULSON, Minna Sethi MD, Dayday ORDERED: BLOOD CULTURE Procedure Result > BLOOD CULTURE REPORT Preliminary 07/15/17-1115 GRAM STAIN SUGGESTIVE OF: GRAM NEGATIVE RODS Called to/Readback by NOLA by LAB.GRAN 07/14/171918 Called to/Readback by DR BARBOZA by LAB.GRAN 07/14/171919 CULTURE: GRAM NEGATIVE RODS Identification and sensitivities to follow Recent Imaging Studies: CLINICAL INFORMATION: Fever and leukocytosis. Right foot dry ulcer. Question osteomyelitis. COMPARISON: 02/29/2012 TECHNIQUE: Right foot, 3 views FINDINGS: Compared to 02/29/2012, there has been interval removal of a subtalar arthroereisis device. Also, lateral calcaneal plate has been removed. There are two residual screws within the anterior calcaneus. The lateral view is suboptimally positioned. There appears to be pes planus deformity; the subtalar joint space is poorly visualized on this view. Surgical changes from remote osteotomy/bunionectomy of the great toe with three intact screws of the first metatarsal. Previously noted hardware in the proximal aspect of the metatarsal has been removed. There is nonuniform joint space narrowing and osteophyte formation of the degenerated great toe metatarsophalangeal joint. No osseous erosion, periostitis or acute fracture. There appears to be skin/soft tissue irregularity lateral to the great toe MTP joint without soft tissue gas. IMPRESSION: No radiographic evidence of osteomyelitis in the right foot. DICTATED BY: Joel Díaz MD DATE/TIME DICTATED:07/14/171519 [employer]:TAMANNA DATE/TIME TRANSCRIBED:07/14/171519 EXAM TYPE: CAT - CT ABD & PELVIS W/O IV CONTRAS; CT CHEST WO IV CONTRAST EXAMINATION: CT CHEST ABDOMEN AND PELVIS WITHOUT CONTRAST CLINICAL INFORMATION: Pneumonia. Fever with increased white blood cell count. SBP. COMPARISON: CT of the abdomen and pelvis 07/09/2017. TECHNIQUE: Multidetector volumetric imaging was performed from the superior aspect of the liver through the pubic symphysis. Sagittal and coronal reformatted images were obtained on the technologist's workstation. DLP: 622 mGy-cm FINDINGS: CHEST: LUNGS: The central airways are patent. The lungs are clear with no evidence of consolidation. There is minimal bibasilar subsegmental atelectasis. No pleural effusion or pneumothorax. There is a 5 mm nodule in the right lower lobe (series 604 image [id number]). MEDIASTINUM: The mediastinum is normal. Central vascular structures are unremarkable allowing for mild atheromatous changes. No hilar or mediastinal lymphadenopathy. The heart is of normal size. There is no pericardial effusion. CHEST WALL/AXILLA: No lymphadenopathy. No chest wall mass. BONES: No destructive lesions are seen within the osseous structures. LIVER, GALLBLADDER, AND BILIARY TREE: The liver is enlarged measuring up to 20 cm in maximal SI dimension and demonstrates a lobulated contour. The right posterior hepatic lobe demonstrates a more prominent lobulated contour which is not well-defined on the noncontrast study. The gallbladder is markedly distended but without calcified stones. There is hyperdense material layering within the gallbladder which may be related to vicarious excretion from prior contrast. There is no pericholecystic inflammatory change. PANCREAS: Unremarkable. SPLEEN: Enlarged measuring up to 18.7 cm in maximal SI dimension. ADRENAL GLANDS: Unremarkable. KIDNEYS AND URETERS: The kidneys are normal in size, shape, and attenuation. No hydronephrosis, hydroureter, or calculi seen. No perinephric stranding. BLADDER: Not well distended but grossly within normal limits. GASTROINTESTINAL TRACT: There is stable appearing trace amount of free fluid within the bilateral right more than left paracolic gutters with minimal associated inflammatory stranding. The small bowel loops are nondilated. There is sigmoid and descending colonic diverticulosis without focal diverticulitis. There is no free air. The appendix is normal and air-filled. ABDOMINAL WALL: No significant hernia is appreciated. LYMPH NODES: Normal. VASCULAR: Atheromatous changes of the abdominal aorta and its branches without focal aneurysm. The abdominal aorta maximally measures up to 2.9 cm. PELVIC VISCERA: No evidence of uterine or adnexal mass. OSSEOUS STRUCTURES: Old healed fractures of the bilateral pubic rami. Multilevel degenerative changes in the lower lumbar spine. No lytic or blastic lesions are seen. IMPRESSION: 1. No acute findings in the chest. Specifically there is no evidence of consolidation or pleural effusion. A 5 mm nodule is identified in the right lower lobe. According to the UPDATED 2017 Fleischner Society recommendations, the advised follow-up imaging for solid nodules < 6 mm is: LOW RISK PATIENT: No routine follow-up. HIGH RISK PATIENT: Optional CT at 12 months. 2. No new inflammatory changes within the abdomen or pelvis. 3. Stable appearance of hepatosplenomegaly. 4. Focal prominent undulating contour of the right posterior hepatic lobe. Consider further evaluation with liver MRI to exclude an underlying mass. 5. Mild nonspecific fluid and minimal stranding in the bilateral paracolic gutters. 6. Atheromatous change of the abdominal aorta which measures up to 2.9 cm. 7. Colonic diverticulosis without evidence of diverticulitis. RECOMMENDATION: Liver MRI to exclude an underlying hepatic mass. DICTATED BY: Luly Maki MD DATE/TIME DICTATED:07/14/171722 HOU[employer]:TAMANNA DATE/TIME TRANSCRIBED:07/14/171722 CONFIDENTIAL, DO NOT COPY WITHOUT APPROPRIATE AUTHORIZATION. <Electronically signed in Other Vendor System> SIGNED BY: Luly Maki MD 07/14/17 0186 Assessment/Plan Impression: 57-year-old woman with a history of alcohol abuse, peptic ulcer disease, hyperlipidemia and depression admitted on July 06 with few day history of fecal incontinence, anorexia, and vomiting. Hospital course complicated by development of a high fever and mild leukocytosis. GNR bacteremia (await ID and sensitivity); possible sources of infection include the abdomen, for example SBP, colitis, biliary infection. Repeat CT abd/pelvis results as noted. Abnormal blood work: (i) leukocytosis (ii)hyperbilirubinemia Suggestion: 1. Follow-up final blood culture results; repeat BC x2 on 07/16 2. Cont Ceftriaxone 1 g IV every 24 hours D #2 and Flagyl pending above 3. MRI abd eval hepatic mass. 4. Trend CBC, LFT's, including GGTP. Hep B and C screening serology if not performed within the past 6 mos.
[2017-07-15 14:43] VITALS: BP 110/54
[2017-07-15 22:32] VITALS: BP 120/60
[2017-07-16 06:30] VITALS: BP 108/60
--- NOTE | 2017-07-16 07:24 | PN- Housestaff ---
JhonathanBridport 07/16/17 0724: Subjective Follow-up For: Hyperbilirubinemia Hypokalemia and hypomagnesemia Decompensated liver cirrhosis Non healing ulcer of right big toe Sepsis due to gram -ve royce bacteremia Subjective: Night events. Patient remained afebrile overnight. Patient seen and examined this morning. She denied any chest pain, short of breath, nausea, vomiting, abdominal pain, chills, fever and dysuria patient still having diarrhea and incontinence. But patient is feeling much improved compared to she came in. Review of Systems Constitutional: Reports: no symptoms. EENTM: Reports: icterus. Cardiovascular: Reports: no symptoms. Respiratory: Reports: no symptoms. Gastrointestinal: Reports: diarrhea. Genitourinary: Reports: no symptoms. Musculoskeletal: Reports: no symptoms. Neurological/Psychological: Reports: no symptoms. Objective Last 24 Hrs of Vital Signs/I&O Vital Signs Date Time Temp Pulse Resp B/P B/P Pulse O2 O2 Flow FiO2 Mean Ox Delivery Rate 07/16 0800 Room Air 07/16 0630 99.0 92 18 108/60 96 Room Air 07/16 0000 97 Room Air 07/15 2232 98.7 90 20 120/60 97 Room Air 07/15 1443 98.6 86 18 110/54 96 Room Air Intake & Output 07/16 1600 07/16 0800 07/16 0000 Intake Total 240 550 Output Total 300 Balance -60 550 Intake, IV 120 150 Intake, Oral 120 400 Number 4 8 Bowel Movements Output, Urine 300 Physical Exam General Appearance: Alert, Oriented X3, Cooperative, No Acute Distress Skin Temp/Moisture Exam: Warm/Dry HEENT: Atraumatic, PERRLA, EOMI Neck: Supple Cardiovascular: Normal S1, Normal S2 Lungs: Clear to Auscultation Abdomen: Soft, No Tenderness Neurological: Normal Speech, Strength at 5/5 X4 Ext, Normal Tone, Sensation Intact Extremities: No Edema, chronic non healing ulcer on right toe Assessment/Plan Assessment: Pateint is a 57-year-old female with past medical history of hyperlipidemia, alcohol abuse, depression, peptic ulcer disease who presents with complaints of stool incontinence and poor appetite. Assessment and Plan: Sepsis secondary to gram -ve bacteremia: -patient is getting iv ceftriaxone and flagyl. She developed fever 103.1 and wbc count 13.4. Coundn't find the source yet. -Ct chest, abdomen and pelvis was negative for source of infection. -Today her WBC count is 13.5 but she didn't spike any fever and her second blood culture is still negative. -we will change her ceftriaxone to oral cipro 500mg bid and po flagyl 500mg bid. we start half n/s to hydrate her considering her ongoing diarrhea. Hypokalemia and hypomagnesemia: Patient came in with severe hypokalemia and hypomagnesemia likely secondary to severe diarrhea and alcoholism. Her last episode of diarrhea was last night. -Will continue repletion of K and Mg as necessary. Today his potassium is 2.7 and magnesium is 1.0 and we will repleted both magnesium and potassium through IV. -Her stool studies and C.diff have been negative. -Patient's potassium level and magnesium level have improved. We will continue monitoring it. Diarrhea with incontinence: -Still has diarrhea and incontinence -C. difficile PCR is pending. -CT scan didn't show any inflammation of the colon. Decompensated liver cirrhosis: Her CT scan shows chronic hepatosplenomegaly and hepatic cirrhosis likely secondary to heavy alcohol use. Her lab studies showed elevated INR of 2.0 and direct bilirubin of 8. Abdominal U/S shows 5 cm hypoechoic region within the right hepatic lobe concerning for malignancy. Multiphasic CT on 07/09 showed no suspicious liver lesion. The questionable lesion on U/S was lobular portion of the right lobe of liver and not a hepatic mass. -She has a high MELD score of 22 points and Maddrey's Discriminamt Function of 58.6 points. Both indicate a fairly poor prognosis. -Will keep her off steroids for now. -Her total and direct bilirubin have trended up since 07/08 -She has been started on Rifaximin BID. -Alpha fetoprotein - negative -If patient spikes fever we will do cultures, blood and urine also c-xray to find the source of infection.(07/13/17) -We will follow the cbc for wbc count. Non healing ulcer of right big toe: -Dry gangreen of 1st tarsometatarsal joint. -We will follow the x-ray results if it shows suspecion of osteomyelitis , we will get MRI. Anemia: -She received 1unit PRBC on 07/08. -Her repeat CBC has been stable around 8 since transfusion. -Her MCV is elevated likely due to alcohol use. -continue folate supplementation History of Alcohol Use: -Ativan per CIWA -Continue folate, thiamine, multivitamins supplementation. DVT Prophylaxis: Elevated INR of 1.5. Will continue with ALPS -One dose of SC Vit K 10mg was administered on 07/08. Diet: Regular Code: Full Code Problem List: 1. Decompensated hepatic cirrhosis 2. Diarrhea 3. Hyperbilirubinemia 4. Transaminitis Pain Ratin Pain Location: none Pain Goal: Remain pain free Pain Plan: tylenol for mild pain Tomorrow's Labs & Rationales: cbc/bep/LFTs Matthias PAULSONAustyntimoteo 07/16/17 1251: Attending MD Review Statement Attending Statement Attending MD Statement: examined this patient, discuss w/resident/PA/ANESTHESIOLOGY CRNA, agreed w/resident/PA/ANESTHESIOLOGY CRNA, reviewed EMR data (avail), discussed with nursing, discussed with case mgmt, amended to note Attending Assessment/Plan: Patient seen and examined. She remains clinically stable. She is afebrile with a stable blood pressure. She has no new complaints today. She still having diarrhea but admits that the volume is decreasing with each day. She denies cough or shortness of breath. Denies chest pain. Denies nausea vomiting. Denies abdominal discomfort. She is tolerating her diet. On examination lungs remain clear to auscultation. Abdomen remained soft and nontender with normal bowel sounds. She has no peripheral edema. The chronic necrotic ulceration on her right foot is unchanged. Blood cultures are currently growing Klebsiella and only 1 of 2 sets of cultures. Repeat blood cultures were drawn yesterday. Laboratory data shows no improvement in her leukocytosis. Hemoglobin level is fortunately stable. She continues to be hypokalemic likely from volume loss with mild hyponatremia. BUN /creatinine unfortunately returned back to normal. She continues to have a transaminitis consistent with alcoholic disease and an elevated bilirubin level mainly direct. An MRI of the abdomen was done today to further evaluate the probable liver lesion noted on the CT scan. Recommendations: -ID service currently recommending switching patient from IV ceftriaxone to IV Flagyl. -Follow-up results of blood cultures and urine cultures. -Viral hepatitis panel done just a few days ago is negative. Stool culture done earlier on shows no Salmonella Shigella or Campylobacter. Continue to mobilize patient as tolerated. -Given her ongoing diarrhea recommend gentle hydration with half normal saline 100 cc an hour for 1 L particularly as her elevated white cell count, hemoglobin and platelet count today may be due to hemoconcentration.
[2017-07-16 09:11] LABS: HEMATOCRIT 26.8 % (37-47); MEAN CORPUSCULAR HGB CONC 33.4 G/DL (33.0-37.0); MEAN CORPUSCULAR VOLUME 107.6 FL (81.0-99.0); MEAN PLATELET VOLUME 8.4 FL (7.4-10.4); PLATELET COUNT 263 /CUMM (130-400); WHITE BLOOD CELL COUNT 13.5 /CUMM (4.8-10.8)
--- NOTE | 2017-07-16 11:30 | PN- Infect Dx ---
Subjective Subjective: No fever. Review of Systems Comments: 12 points reviewed as noted, otherwise negative Objective Last 24 Hrs of Vital Signs/I&O Vital Signs Date Time Temp Pulse Resp B/P B/P Pulse O2 O2 Flow FiO2 Mean Ox Delivery Rate 07/16 0800 Room Air 07/16 0630 99.0 92 18 108/60 96 Room Air 07/16 0000 97 Room Air 07/15 2232 98.7 90 20 120/60 97 Room Air 07/15 1443 98.6 86 18 110/54 96 Room Air Intake & Output 07/16 1600 07/16 0800 07/16 0000 Intake Total 240 550 Output Total 300 Balance -60 550 Intake, IV 120 150 Intake, Oral 120 400 Number 4 8 Bowel Movements Output, Urine 300 Physical Exam Other Physical Findings: General Appearance: Chronically ill Skin Temp/Moisture Exam: Warm/Dry/Jaundiced HEENT: Atraumatic, no thrush Neck: Supple, no CHARLI Cardiovascular: Normal S1, Normal S2 Lungs: Clear to Auscultation Abdomen: Soft, + BS Neurological: Normal Speech, A&O x3 Extremities: No Edema Results Last 24 Hours of Lab Results: Laboratory Tests 07/16 0800 Chemistry Sodium (137 - 145 mmol/L) 135 L Potassium (3.5 - 5.1 mmol/L) 3.4 L Chloride (98 - 107 mmol/L) 110 H Carbon Dioxide (22 - 30 mmol/L) 14 L Anion Gap (5 - 16) 11 BUN (7 - 17 mg/dL) 13 Creatinine (0.5 - 1.0 mg/dL) 1.0 Estimated GFR (>60 ml/min) 57 L BUN/Creatinine Ratio (7 - 25 %) 13.0 Total Bilirubin (0.2 - 1.3 mg/dL) 12.2 H Direct Bilirubin (< 0.4 mg/dL) 10.9 H AST (14 - 36 U/L) 84 H ALT (9 - 52 U/L) 23 Alkaline Phosphatase (<127 U/L) 208 H Total Protein (6.3 - 8.2 g/dL) 6.0 L Albumin (3.5 - 5.0 g/dL) 2.3 L Hematology CBC w Diff MAN DIFF ORDERED WBC (4.8 - 10.8 /CUMM) 13.5 H RBC (4.20 - 5.40 /CUMM) 2.50 L Hgb (12.0 - 16.0 G/DL) 9.0 L Hct (37 - 47 %) 26.8 L MCV (81.0 - 99.0 FL) 107.6 H MCH (27.0 - 31.0 PG) 36.0 H RDW (11.5 - 14.5 %) 23.0 H Plt Count (130 - 400 /CUMM) 263 MPV (7.4 - 10.4 FL) 8.4 Segmented Neutrophils (42.2 - 75.2 %) 81 H Band Neutrophils (0.0 - 5.0 %) 5 Lymphocytes (20.5 - 51.1 %) 3 L Monocytes (1.7 - 9.3 %) 10 H Basophils (0.0 - 2.0 %) 1 Platelet Estimate (ADEQUATE) ADEQUATE Hypochromic-Microcytic 1+ Poikilocytosis 2+ Anisocytosis 1+ Macrocytic Cells 1+ PUBS MCHC (33.0 - 37.0 G/DL) 33.4 Last 24 Hours of Doug Results: SPEC #: [id number] NESTOR: 07/13/17 STATUS: COMP RECD: 07/13/[address]: Josselyn PAULSON,Soo SOURCE: BLOOD ENTR: 07/13/[address]: Matthias PAULSON,Tony SPDESC: 1ST/VENOUS Traci PAULSON, Minna Sethi MD, Dayday ORDERED: BLOOD CULTURE Procedure Result > BLOOD CULTURE REPORT Final 07/16/17 GRAM STAIN SUGGESTIVE OF: GRAM NEGATIVE RODS Called to/Readback by NOLA by LAB.GRAN 07/14/171918 Called to/Readback by DR BARBOZA by LAB.GRAN 07/14/171919 CULTURE: KLEBSIELLA PNEUMONIAE 1. KLEBSIELLA PNEUMONIAE RX AB ------ -- AMPICILLIN R CEFAZOLIN I AMOXICILLIN/CLAVULINIC ACID I AMPICILLIN/SULBACTAM R CEFOXITIN S CEFTAZIDIME S CEFTRIAXONE S CIPROFLOXACIN S GENTAMICIN S TRIMETHOPRIM/SULFAMETHOXAZOLE R Recent Imaging Studies: CT chest, A/P IMPRESSION: 1. No acute findings in the chest. Specifically there is no evidence of consolidation or pleural effusion. A 5 mm nodule is identified in the right lower lobe. According to the UPDATED 2017 Fleischner Society recommendations, the advised follow-up imaging for solid nodules < 6 mm is: LOW RISK PATIENT: No routine follow-up. HIGH RISK PATIENT: Optional CT at 12 months. 2. No new inflammatory changes within the abdomen or pelvis. 3. Stable appearance of hepatosplenomegaly. 4. Focal prominent undulating contour of the right posterior hepatic lobe. Consider further evaluation with liver MRI to exclude an underlying mass. 5. Mild nonspecific fluid and minimal stranding in the bilateral paracolic gutters. 6. Atheromatous change of the abdominal aorta which measures up to 2.9 cm. 7. Colonic diverticulosis without evidence of diverticulitis. RECOMMENDATION: Liver MRI to exclude an underlying hepatic mass. DICTATED BY: Luly Maki MD DATE/TIME DICTATED:07/14/171722 Assessment/Plan Impression: 57-year-old woman with a history of alcohol abuse, peptic ulcer disease, hyperlipidemia and depression admitted on July 06 with few day history of fecal incontinence, anorexia, and vomiting. Hospital course complicated by development of a high fever and mild leukocytosis. Klebsiella pna bacteremia (S cipro); possible sources of infection include the abdomen, for example SBP, colitis, biliary infection. Repeat CT abd/pelvis results as noted. Abnormal blood work: (i) persistent leukocytosis (ii)hyperbilirubinemia Suggestion: 1. Follow-up repeat BC and abd MRI results from today. 2. Discontontinue Ceftriaxone 1 g IV every 24 hours D #3; and start cipro 500 mg po bid; please change Flagyl to 500 mg po bid. 3. Trend CBC. 4. Call if fever.
[2017-07-16 13:54] VITALS: BP 116/60
--- NOTE | 2017-07-16 16:31 | MRI REPORT ---
EXAMINATION: MR ABDOMEN WITHOUT AND WITH CONTRAST CLINICAL INFORMATION: Liver nodules on last CT scan. COMPARISON: CT scan of the chest, abdomen and pelvis dated 07/14/2017. CT scan of the abdomen and pelvis dated 07/09/2017, 07/06/2017, and 07/06/2011. Ultrasound of the abdomen dated 06/08/2011. TECHNIQUE: An MRI scan of the abdomen was performed using multiple imaging sequences and imaging planes. 7 mL of intravenous Gadavist was given and postcontrast enhanced dynamic evaluation was performed. FINDINGS: Evaluation is limited by motion artifact and inhomogeneous fat saturation. LIVER: The liver is enlarged, measuring 19.8 cm longitudinally. Liver contour is macrolobulated. There is marked enlargement of the left lobe and caudate lobe of the liver with relative atrophy of the right lobe, raising the suspicion of liver cirrhosis there is a tiny 0.3 cm T2 bright nonenhancing cyst in the left lobe of the liver (series 2, image 22). Nonspecific inhomogeneous signal and enhancement is seen in the right lobe of the liver with overlying capsular retraction (series 18, image 24). No suspicious enhancing liver mass is seen, though evaluation is limited by motion artifact and inhomogeneous signal. Small volume of ascites is noted around the liver and spleen. GALLBLADDER, BILIARY TREE: Gallbladder is well distended and demonstrates multiple layering calculi in its dependent portion. No gallbladder wall thickening or specific pericholecystic fluid is seen. No intrahepatic or extrahepatic ductal dilatation is seen. Common bile duct is normal, measuring 0.4 cm in diameter. PANCREAS: Normal. No ductal dilatation, mass, or surrounding stranding. SPLEEN: Markedly enlarged, measuring approximately 19 cm longitudinally. No focal splenic mass seen. Splenic vein patent. ADRENAL GLANDS AND KIDNEYS: Adrenal glands normal. Kidneys bilaterally symmetric in size and function. There is a 0.6 cm nonenhancing T2 bright cortical cyst in the mid to upper left kidney (series 2, image 11). No suspicious focal renal mass, hydronephrosis, or perinephric stranding. BOWEL LOOPS: Inferiorly displaced due to enlarged liver and spleen. Included bowel loops intrinsically unremarkable. LYMPHOVASCULAR STRUCTURES: Abdominal aorta normal in caliber. No periaortic collections. No abdominal adenopathy. BONES: There is a mild convex right thoracolumbar scoliosis. No suspicious bone findings. IMPRESSION: 1. Marked hepatosplenomegaly with nodular contour of the liver, relative atrophy of the right lobe and hypertrophy of the left lobe and caudate lobe and small volume ascites. Findings are consistent with liver cirrhosis and portal venous hypertension. 2. Cholelithiasis with no evidence of acute cholecystitis or biliary obstruction. 3. Incidental tiny hepatic and left renal cysts. 4. No adenopathy.
[2017-07-16 21:20] VITALS: BP 102/50
[2017-07-17 06:00] VITALS: BP 114/56
[2017-07-17 06:12] VITALS: BP 90/44
--- NOTE | 2017-07-17 08:44 | PN- Housestaff ---
Regan PAULSON,Shine 07/17/17 0844: Subjective Follow-up For: Hyperbilirubinemia Hypokalemia and hypomagnesemia Decompensated liver cirrhosis Non healing ulcer of right big toe Sepsis secondary to klebsiella bacteremia Subjective: Patient was seen and examined at bedside. She was resting comfortably. She had no acute events overnight. Overall her diarrhea is improving and she is no longer incontinent, however she continues to have numerous loose watery stools per day. While there is no taniya blood in the stool she reports blood on the toilet paper which she attributes to irritation secondary to numerous bowel movements and wiping. Nurse also reports that there is some excoriation in the perianal area. Patient denies any abdominal pain and states that she feels a pressure-like sensation prior to bowel movements. She currently denies any nausea, vomiting, fever, chills, chest pain, shortness of breath. Review of Systems Constitutional: Denies: chills, fever. Cardiovascular: Denies: chest pain, palpitations. Respiratory: Denies: cough, short of breath. Gastrointestinal: Reports: diarrhea. Denies: abdominal pain, distention, bowel incontinence, melena, nausea, bloody stool. Genitourinary: Reports: no symptoms. Musculoskeletal: Reports: no symptoms. Objective Last 24 Hrs of Vital Signs/I&O Vital Signs Date Time Temp Pulse Resp B/P B/P Pulse O2 O2 Flow FiO2 Mean Ox Delivery Rate 07/17 0612 98.2 79 20 90/44 96 Room Air 07/17 0600 114/56 07/16 2120 98.7 85 20 102/50 98 Room Air 07/16 1354 98.2 85 18 116/60 95 Room Air Intake & Output 07/17 1600 07/17 0800 07/17 0000 Intake Total 300 400 Output Total Balance 300 400 Intake, IV 0 Intake, Oral 300 400 Number 3 Bowel Movements Physical Exam General Appearance: Alert, Oriented X3, Cooperative, No Acute Distress Skin Temp/Moisture Exam: Warm/Dry Sepsis Skin Exam (color): Jaundiced HEENT: scleral icterus Cardiovascular: Regular Rate, Normal S1, Normal S2 Lungs: Clear to Auscultation, Normal Air Movement Abdomen: Normal Bowel Sounds, Soft, No Tenderness Neurological: Normal Speech, Sensation Intact Extremities: No Clubbing, No Cyanosis, No Edema Current Medications: Current Medications Sig/Miguel Start time Last Medication Dose Route Stop Time Status Admin Acetaminophen 650 MG Q6P PRN 07/07 0200 AC 07/12 PO 2049 Ceftriaxone Sodium 1,000 MG DAILY 07/14 1605 DC 07/16 IV 0831 Ciprofloxacin 500 MG BID 07/16 1141 AC 07/16 PO 07/20 1140 2141 Escitalopram Oxalate 20 MG DAILY 07/07 1000 AC 07/16 PO 0831 Folic Acid 1 MG DAILY 07/07 1000 AC 07/16 PO 0831 Metronidazole 500 MG BID 07/16 1141 AC 07/16 PO 2141 Metronidazole 500 MG Q8H 07/14 0330 DC 07/16 N/A 1 UNIT IV 1058 Multivitamins 1 TAB DAILY 07/07 1000 AC 07/16 PO 0831 Omeprazole 40 MG DAILY AC 07/07 0700 AC 07/17 PO 0623 Potassium Chloride 40 MEQ ONCE ONE 07/16 1015 DC 07/16 PO 07/16 1016 1107 Potassium Chloride 40 MEQ DAILY 07/10 1804 AC 07/16 PO 0831 Rifaximin 550 MG BID 07/10 2200 AC 07/16 PO 2141 Sodium Chloride 1,000 ML ONCE ONE 07/16 1600 DC 07/16 IV 07/17 0159 1649 Thiamine HCl 100 MG DAILY 07/09 1000 AC 07/16 PO 0831 Trimethobenzamide HCl 200 MG TID PRN 07/07 0300 AC IM Zinc Oxide 1 KAYLA BID 07/13 1338 AC 07/16 TOP 2141 Last 24 Hrs of Lab/Doug Results Last 24 Hrs of Labs/Mics: Laboratory Tests 07/17/17 0620: Anion Gap 12, Estimated GFR > 60, BUN/Creatinine Ratio 13.3, CBC w Diff MAN DIFF ORDERED, RBC 2.47 L, MCV 107.3 H, MCH 35.7 H, RDW 22.4 H, MPV 8.4, Segmented Neutrophils 77 H, Band Neutrophils 5, Lymphocytes 8 L, Monocytes 9, Basophils 1, Platelet Estimate ADEQUATE, Hypochromic-Microcytic 1+, Poikilocytosis 1+, Anisocytosis 1+, Macrocytic Cells 1+, PUBS MCHC 33.2 Assessment/Plan Assessment: Pateint is a 57-year-old female with past medical history of hyperlipidemia, alcohol abuse, depression, peptic ulcer disease who presents with complaints of stool incontinence and poor appetite. Assessment and Plan: Sepsis secondary to gram klebsiella bacteremia: -patient is getting iv cipro and flagyl, will continue until until 07/22/16. -CT chest, abdomen and pelvis was negative for source of infection. -She has had persistent leukocytosis remained afebrile Hypokalemia and hypomagnesemia, resolved: Patient came in with severe hypokalemia and hypomagnesemia likely secondary to severe diarrhea and alcoholism. Her last episode of diarrhea was last night. -Will continue repletion of K and Mg as necessary. Today his potassium is 3.7. Continue daily daily, will check magnesium level in a.m. -Her stool studies and C.diff have been negative, will send for C. difficile PCR today. 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 -She continues to have persistent diarrhea -C. difficile PCR is pending. -CT scan didn't show any inflammation of the colon. Decompensated liver cirrhosis: Her CT scan shows chronic hepatosplenomegaly and hepatic cirrhosis likely secondary to heavy alcohol use. Her lab studies showed elevated INR of 2.0 and direct bilirubin of 8. Abdominal U/S shows 5 cm hypoechoic region within the right hepatic lobe concerning for malignancy. Multiphasic CT on 07/09 showed no suspicious liver lesion. The questionable lesion on U/S was lobular portion of the right lobe of liver and not a hepatic mass. -She has a high MELD score of 22 points and Maddrey's Discriminamt Function of 58.6 points. Both indicate a fairly poor prognosis. -Will keep her off steroids for now. -Her total and direct bilirubin have trended up since 07/08 -She has been started on Rifaximin BID. -Alpha fetoprotein - negative -If patient spikes fever we will do cultures, blood and urine also c-xray to find the source of infection.(07/13/17) -We will follow the cbc for wbc count. Non healing ulcer of right big toe: -Dry gangreen of 1st tarsometatarsal joint. -We will follow the x-ray results if it shows suspecion of osteomyelitis , we will get MRI. Anemia: -H/H has remained stable -She received 1unit PRBC on 07/08. -Her repeat CBC has been stable around 8 since transfusion. -Her MCV is elevated likely due to alcohol use. -continue folate supplementation History of Alcohol Use: -Ativan per CIWA -Continue folate, thiamine, multivitamins supplementation. DVT Prophylaxis: Elevated INR of 1.5. Will continue with ALPS -One dose of SC Vit K 10mg was administered on 07/08. Diet: Regular Code: Full Code Problem List: 1. Decompensated hepatic cirrhosis 2. Diarrhea 3. Hyperbilirubinemia 4. Transaminitis Pain Ratin Pain Location: none Pain Goal: Remain pain free Pain Plan: pain pathway Tomorrow's Labs & Rationales: cbc, bep, LFTs, Mg Matthias PAULSON,Austyntimoteo 07/17/17 1225: Attending MD Review Statement Attending Statement Attending MD Statement: examined this patient, discuss w/resident/PA/FORMULA MAKER, agreed w/resident/PA/FORMULA MAKER, reviewed EMR data (avail), discussed with nursing, discussed with case mgmt, amended to note Attending Assessment/Plan: Patient seen and examined. Resting comfortably in the acute distress. She reports feeling well today. She is afebrile. She is hemodynamically stable. She however continues to report having loose bowel movements. She is reported to have had a bowel movement yesterday down from 16 the day prior she denies nausea vomiting. Denies abdominal pain.. On examination abdomen is nondistended , soft, nontender with normal bowel sounds. Hemoglobin level is essentially stable. She did test guaiac-positive however she believes this is due to abrasions from constantly wiping with her diarrhea. Recommendations: -Continue antibiotic regimen as recommended by the ID service. -Blood cultures repeated on 16 July are currently negative. -ID service recommends checking C. difficile PCR as patient continues to have diarrhea. -Patient is requesting discharge to a prison facility for short-term rehabilitation due to her deconditioning.
[2017-07-17 09:34] LABS: HEMATOCRIT 26.5 % (37-47); MEAN CORPUSCULAR HGB 35.7 PG (27.0-31.0); MEAN CORPUSCULAR HGB CONC 33.2 G/DL (33.0-37.0); MEAN CORPUSCULAR VOLUME 107.3 FL (81.0-99.0); MEAN PLATELET VOLUME 8.4 FL (7.4-10.4); PLATELET COUNT 276 /CUMM (130-400); RBC DISTRIBUTION WIDTH 22.4 % (11.5-14.5); RED BLOOD CELL CT 2.47 /CUMM (4.20-5.40); WHITE BLOOD CELL COUNT 12.5 /CUMM (4.8-10.8)
--- NOTE | 2017-07-17 10:18 | PN- Infect Dx ---
Subjective Subjective: No fever; she reports loose stools every 1-2 h. No n/v. Review of Systems Comments: 12 points reviewed as noted, otherwise negative. Objective Last 24 Hrs of Vital Signs/I&O Vital Signs Date Time Temp Pulse Resp B/P B/P Pulse O2 O2 Flow FiO2 Mean Ox Delivery Rate 07/17 611 98.2 79 20 90/44 96 Room Air 07/17 0600 114/56 07/16 2120 98.7 85 20 102/50 98 Room Air 07/16 1354 98.2 85 18 116/60 95 Room Air Intake & Output 07/17 1600 07/17 0800 07/17 0000 Intake Total 300 400 Output Total Balance 300 400 Intake, IV 0 Intake, Oral 300 400 Number 3 Bowel Movements Physical Exam Other Physical Findings: General Appearance: Chronically ill Skin Temp/Moisture Exam: Warm/Dry/Jaundiced HEENT: Atraumatic, no thrush Neck: Supple, no CHARLI Cardiovascular: Normal S1, Normal S2 Lungs: Clear to Auscultation Abdomen: Soft, + BS Neurological: Normal Speech, A&O x3 Extremities: No Edema Results Last 24 Hours of Lab Results: Laboratory Tests 07/17 619 Chemistry Sodium (137 - 145 mmol/L) 136 L Potassium (3.5 - 5.1 mmol/L) 3.7 Chloride (98 - 107 mmol/L) 112 H Carbon Dioxide (22 - 30 mmol/L) 12 L Anion Gap (5 - 16) 12 BUN (7 - 17 mg/dL) 12 Creatinine (0.5 - 1.0 mg/dL) 0.9 Estimated GFR (>60 ml/min) > 60 BUN/Creatinine Ratio (7 - 25 %) 13.3 Hematology CBC w Diff MAN DIFF ORDERED WBC (4.8 - 10.8 /CUMM) Pending RBC (4.20 - 5.40 /CUMM) Pending Hgb (12.0 - 16.0 G/DL) Pending Hct (37 - 47 %) Pending MCV (81.0 - 99.0 FL) Pending MCH (27.0 - 31.0 PG) Pending RDW (11.5 - 14.5 %) Pending Plt Count (130 - 400 /CUMM) Pending MPV (7.4 - 10.4 FL) Pending Segmented Neutrophils (42.2 - 75.2 %) Pending PUBS MCHC (33.0 - 37.0 G/DL) Pending Last 24 Hours of Doug Results: Procedure Result > BLOOD CULTURE REPORT Final 07/16/17 GRAM STAIN SUGGESTIVE OF: GRAM NEGATIVE RODS Called to/Readback by NOLA by LAB.GRAN 07/14/171918 Called to/Readback by DR BARBOZA by LAB.GRAN 07/14/171919 CULTURE: KLEBSIELLA PNEUMONIAE 1. KLEBSIELLA PNEUMONIAE RX AB ------ -- AMPICILLIN R CEFAZOLIN I AMOXICILLIN/CLAVULINIC ACID I AMPICILLIN/SULBACTAM R CEFOXITIN S CEFTAZIDIME S CEFTRIAXONE S CIPROFLOXACIN S GENTAMICIN S TRIMETHOPRIM/SULFAMETHOXAZOLE R SPEC #: [id number] NESTOR: 07/16/17 STATUS: [facility] RECD: 07/16/17 [facility] DR: Jhonathan PAULSON,[place] SOURCE: BLOOD ENTR: 07/16/17-[address]: Matthias PAULSON,Tony SPDESC: 2ND/VENOUS Traci PAULSON, Minna Sethi [facility], [facility] ORDERED: BLOOD CULTURE Procedure Result BLOOD CULTURE PENDING Recent Imaging Studies: CLINICAL INFORMATION: Liver nodules on last CT scan. COMPARISON: CT scan of the chest, abdomen and pelvis dated 07/14/2017. CT scan of the abdomen and pelvis dated 07/09/2017, 07/06/2017, and 07/06/2011. Ultrasound of the abdomen dated 06/08/2011. TECHNIQUE: An MRI scan of the abdomen was performed using multiple imaging sequences and imaging planes. 7 mL of intravenous Gadavist was given and postcontrast enhanced dynamic evaluation was performed. FINDINGS: Evaluation is limited by motion artifact and inhomogeneous fat saturation. LIVER: The liver is enlarged, measuring 19.8 cm longitudinally. Liver contour is macrolobulated. There is marked enlargement of the left lobe and caudate lobe of the liver with relative atrophy of the right lobe, raising the suspicion of liver cirrhosis there is a tiny 0.3 cm T2 bright nonenhancing cyst in the left lobe of the liver (series 2, image 22). Nonspecific inhomogeneous signal and enhancement is seen in the right lobe of the liver with overlying capsular retraction (series 18, image 24). No suspicious enhancing liver mass is seen, though evaluation is limited by motion artifact and inhomogeneous signal. Small volume of ascites is noted around the liver and spleen. GALLBLADDER, BILIARY TREE: Gallbladder is well distended and demonstrates multiple layering calculi in its dependent portion. No gallbladder wall thickening or specific pericholecystic fluid is seen. No intrahepatic or extrahepatic ductal dilatation is seen. Common bile duct is normal, measuring 0.4 cm in diameter. PANCREAS: Normal. No ductal dilatation, mass, or surrounding stranding. SPLEEN: Markedly enlarged, measuring approximately 19 cm longitudinally. No focal splenic mass seen. Splenic vein patent. ADRENAL GLANDS AND KIDNEYS: Adrenal glands normal. Kidneys bilaterally symmetric in size and function. There is a 0.6 cm nonenhancing T2 bright cortical cyst in the mid to upper left kidney (series 2, image 11). No suspicious focal renal mass, hydronephrosis, or perinephric stranding. BOWEL LOOPS: Inferiorly displaced due to enlarged liver and spleen. Included bowel loops intrinsically unremarkable. LYMPHOVASCULAR STRUCTURES: Abdominal aorta normal in caliber. No periaortic collections. No abdominal adenopathy. BONES: There is a mild convex right thoracolumbar scoliosis. No suspicious bone findings. IMPRESSION: 1. Marked hepatosplenomegaly with nodular contour of the liver, relative atrophy of the right lobe and hypertrophy of the left lobe and caudate lobe and small volume ascites. Findings are consistent with liver cirrhosis and portal venous hypertension. 2. Cholelithiasis with no evidence of acute cholecystitis or biliary obstruction. 3. Incidental tiny hepatic and left renal cysts. 4. No adenopathy. DICTATED BY: Deepika Bentley MD. DATE/TIME DICTATED:07/16/171605 LASER BEAM COLOR SCANNER OPERATOR:TAMANNA DATE/TIME TRANSCRIBED:07/16/171605 CONFIDENTIAL, DO NOT COPY WITHOUT APPROPRIATE AUTHORIZATION. <Electronically signed in Other Vendor System> SIGNED BY: Deepika Bentley MD. [id number] Assessment/Plan Impression: 57-year-old woman with a history of alcohol abuse, peptic ulcer disease, hyperlipidemia and depression admitted on July 06 with few day history of fecal incontinence, anorexia, and vomiting. Hospital course complicated by development of a high fever and mild leukocytosis. Klebsiella pna bacteremia (S cipro); possible sources of infection include the abdomen, for example SBP, colitis, biliary infection. MRI liver neg masses/ abscess. Persistent diarrhea Abnormal blood work: (i) persistent leukocytosis (ii)hyperbilirubinemia Suggestion: 1. Follow-up repeat BC from 07/16. obtain stool for C. difficile by PCR; previous specimen cancelled. 2. Cont cipro 500 mg po bid D #2/ and empiric Flagyl to 500 mg po bid for 5 more days. 3. Trend CBC. 4. Call if fever.
[2017-07-17 13:54] VITALS: BP 118/80
[2017-07-17 22:36] VITALS: BP 110/42
[2017-07-18 06:51] VITALS: BP 122/70
--- NOTE | 2017-07-18 07:28 | PN- Housestaff ---
[facility] Subjective Follow-up For: Hyperbilirubinemia Decompensated liver cirrhosis Non healing ulcer of right big toe Sepsis secondary to klebsiella bacteremia Diarrhea Subjective: No overnight events. Patient remained afebrile overnight. Seen and examined this morning. She denied any chest pain, short of breath, nausea, vomiting, chills, fever, lightheadedness, abdominal pain and dysuria. Patient's weakness has much improved. She still has diarrhea. Review of Systems Constitutional: Reports: no symptoms. EENTM: Reports: no symptoms. Cardiovascular: Reports: no symptoms. Respiratory: Reports: no symptoms. Gastrointestinal: Reports: diarrhea. Genitourinary: Reports: no symptoms. Musculoskeletal: Reports: no symptoms. Neurological/Psychological: Reports: no symptoms. Objective Last 24 Hrs of Vital Signs/I&O Vital Signs Date Time Temp Pulse Resp B/P B/P Pulse O2 O2 Flow FiO2 Mean Ox Delivery Rate 07/18 0651 98.5 81 20 122/70 95 Room Air 07/17 2236 98.7 87 20 110/42 97 Room Air 07/17 1354 98.9 81 20 118/80 94 Room Air Intake & Output 07/18 1600 07/18 0800 07/18 0000 Intake Total 800 Output Total Balance 800 Intake, Oral 800 Number 1 Bowel Movements Physical Exam General Appearance: Alert, Oriented X3, Cooperative, No Acute Distress Skin Temp/Moisture Exam: Warm/Dry HEENT: Atraumatic, PERRLA, EOMI Neck: Supple Cardiovascular: Normal S1, Normal S2 Lungs: Clear to Auscultation Abdomen: Soft, No Tenderness Neurological: Normal Speech, Strength at 5/5 X4 Ext, Normal Tone, Sensation Intact Extremities: No Edema Assessment/Plan Assessment: Pateint is a 57-year-old female with past medical history of hyperlipidemia, alcohol abuse, depression, peptic ulcer disease who presents with complaints of stool incontinence and poor appetite. Assessment and Plan: Sepsis secondary to gram klebsiella bacteremia: -patient is getting iv cipro and flagyl, will continue until until 07/22/16. -CT chest, abdomen and pelvis was negative for source of infection. -She has had persistent leukocytosis remained afebrile Hypokalemia and hypomagnesemia, resolved: Patient came in with severe hypokalemia and hypomagnesemia likely secondary to severe diarrhea and alcoholism. Her last episode of diarrhea was last night. -Will continue repletion of K and Mg as necessary. Today his potassium is 3.7. Continue daily daily, will check magnesium level in a.m. -Her stool studies and C.diff have been negative, will send for C. difficile PCR today. 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 -She continues to have persistent diarrhea -C. difficile PCR is pending. -CT scan didn't show any inflammation of the colon. Decompensated liver cirrhosis: Her CT scan shows chronic hepatosplenomegaly and hepatic cirrhosis likely secondary to heavy alcohol use. Her lab studies showed elevated INR of 2.0 and direct bilirubin of 8. Abdominal U/S shows 5 cm hypoechoic region within the right hepatic lobe concerning for malignancy. Multiphasic CT on 07/09 showed no suspicious liver lesion. The questionable lesion on U/S was lobular portion of the right lobe of liver and not a hepatic mass. -She has a high MELD score of 22 points and Maddrey's Discriminamt Function of 58.6 points. Both indicate a fairly poor prognosis. -Will keep her off steroids for now. -Her total and direct bilirubin have trended up since 07/08 -She has been started on Rifaximin BID. -Alpha fetoprotein - negative -If patient spikes fever we will do cultures, blood and urine also c-xray to find the source of infection.(07/13/17) -We will follow the cbc for wbc count. Non healing ulcer of right big toe: -Dry gangreen of 1st tarsometatarsal joint. -We will follow the x-ray results if it shows suspecion of osteomyelitis , we will get MRI. Anemia: -H/H has remained stable -She received 1unit PRBC on 07/08. -Her repeat CBC has been stable around 8 since transfusion. -Her MCV is elevated likely due to alcohol use. -continue folate supplementation History of Alcohol Use: -Ativan per CIWA -Continue folate, thiamine, multivitamins supplementation. DVT Prophylaxis: Elevated INR of 1.5. Will continue with ALPS -One dose of SC Vit K 10mg was administered on 07/08. Diet: Regular Code: Full Code Problem List: 1. Decompensated hepatic cirrhosis 2. Diarrhea 3. Hyperbilirubinemia 4. Transaminitis 5. Hypomagnesemia Pain Ratin Pain Location: none Pain Goal: Remain pain free Pain Plan: tylenol for mild pain Tomorrow's Labs & Rationales: bep/cbc Iris PAULSONEduardo 07/18/17 1252: Attending MD Review Statement Attending Statement Attending MD Statement: examined this patient, discuss w/resident/PA/HEALTHCARE NETWORK PRICING CONSULTANT, agreed w/resident/PA/HEALTHCARE NETWORK PRICING CONSULTANT, reviewed EMR data (avail) Attending Assessment/Plan: 57F PMH hyperlipidemia, alcohol abuse, depression, peptic ulcer disease presenting with diarrhea and weakness, found to have decompensated alcoholic cirrhosis and alcoholic hepatitis, with course complicated by sepsis secondary to Klebsiella bacteremia with unknown primary source. Much improved since the last time I saw her a week ago. Still jaundiced, still having loose stools though this is improving, afebrile, stable vitals. LFTs remain elevated. 1. Alcoholic hepatitis 2. Decompensated alcoholic cirrhosis 3. Macrocytic anemia 4. Diarrhea 5. Chronic anemia 6. Alcohol withdrawal 7. Sepsis secondary to Klebsiella bacteremia Plan - Continue on general medicine - Continue Cipro and Flagyl - Obtain C.diff PCR - Follow ID and GI recommendations - Trend LFTs - Continue Rifaximin - Replete Mg and K - DVT PPx with ALPS
[2017-07-18 09:02] LABS: PT 20.5 SEC (9.4-12.5)
[2017-07-18 09:16] LABS: HEMATOCRIT 25.7 % (37-47); MEAN CORPUSCULAR HGB 35.5 PG (27.0-31.0); MEAN CORPUSCULAR VOLUME 107.6 FL (81.0-99.0); MEAN PLATELET VOLUME 8.4 FL (7.4-10.4); PLATELET COUNT 295 /CUMM (130-400); RBC DISTRIBUTION WIDTH 22.4 % (11.5-14.5); RED BLOOD CELL CT 2.39 /CUMM (4.20-5.40)
--- NOTE | 2017-07-18 12:57 | PN- Infect Dx ---
Subjective Subjective: Afebrile. She feels well but still notes fecal incontinence, with 6 stools reported yesterday and 3 overnight. She has no nausea, vomiting or abdominal pain. She denies any dysuria or back pain and has no respiratory complaints. Objective Last 24 Hrs of Vital Signs/I&O Vital Signs Date Time Temp Pulse Resp B/P B/P Pulse O2 O2 Flow FiO2 Mean Ox Delivery Rate 07/18 0800 Room Air 07/18 0651 98.5 81 20 122/70 95 Room Air 07/17 2236 98.7 87 20 110/42 97 Room Air 07/17 1354 98.9 81 20 118/80 94 Room Air Intake & Output 07/18 1600 07/18 0800 07/18 0000 Intake Total 800 Output Total 400 Balance -400 800 Intake, Oral 800 Number 2 1 Bowel Movements Output, Urine 400 Physical Exam Other Physical Findings: She appears comfortable in no acute distress Lungs are clear Heart regular rhythm with no murmur Abdomen is mildly distended, nontender with positive bowel sounds Back no CVA tenderness Extremities no cyanosis, clubbing or edema Results Last 24 Hours of Lab Results: Laboratory Tests 07/18 0743 Chemistry Sodium (137 - 145 mmol/L) 136 L Potassium (3.5 - 5.1 mmol/L) 3.6 Chloride (98 - 107 mmol/L) 113 H Carbon Dioxide (22 - 30 mmol/L) 12 L Anion Gap (5 - 16) 11 BUN (7 - 17 mg/dL) 12 Creatinine (0.5 - 1.0 mg/dL) 0.9 Estimated GFR (>60 ml/min) > 60 BUN/Creatinine Ratio (7 - 25 %) 13.3 Magnesium (1.6 - 2.3 mg/dL) 1.4 L Total Bilirubin (0.2 - 1.3 mg/dL) 11.2 H Direct Bilirubin (< 0.4 mg/dL) 10.0 H AST (14 - 36 U/L) 118 H ALT (9 - 52 U/L) 31 Alkaline Phosphatase (<127 U/L) 228 H Total Protein (6.3 - 8.2 g/dL) 5.7 L Albumin (3.5 - 5.0 g/dL) 2.3 L Coagulation PT (9.4 - 12.5 SEC) 20.5 H INR (0.90 - 1.19) 1.97 H Hematology CBC w Diff MAN DIFF ORDERED WBC (4.8 - 10.8 /CUMM) 13.0 H RBC (4.20 - 5.40 /CUMM) 2.39 L Hgb (12.0 - 16.0 G/DL) 8.5 L Hct (37 - 47 %) 25.7 L MCV (81.0 - 99.0 FL) 107.6 H MCH (27.0 - 31.0 PG) 35.5 H RDW (11.5 - 14.5 %) 22.4 H Plt Count (130 - 400 /CUMM) 295 MPV (7.4 - 10.4 FL) 8.4 Segmented Neutrophils (42.2 - 75.2 %) 80 H Band Neutrophils (0.0 - 5.0 %) 1 Lymphocytes (20.5 - 51.1 %) 10 L Monocytes (1.7 - 9.3 %) 6 Eosinophils (0 - 5.0 %) 2 Basophils (0.0 - 2.0 %) 1 Platelet Estimate (ADEQUATE) VERIFIED BY SMEAR Anisocytosis 1+ Macrocytic Cells 1+ PUBS MCHC (33.0 - 37.0 G/DL) 33.0 Last 24 Hours of Doug Results: Blood cultures 2 July 16 negative Urine culture July 15 approximately 10,000 colonies of yeast Assessment/Plan Impression: Stable, with temperatures remaining normal, though white blood cell count remains mildly elevated, on Ciprofloxacin and Flagyl now Day 5 of treatment for Klebsiella bacteremia, most likely secondary to a GI source, in this 57-year-old woman with alcohol-induced cirrhosis presenting with fecal incontinence, which persists, though workup including CT of the abdomen and pelvis 3, MRI of the abdomen and right upper quadrant ultrasound is nonrevealing. She has no urinary symptoms and her urine culture, with approximately 10,000 colonies of yeast, presumably represents a contaminant. She has no respiratory symptoms to suggest pneumonia, and her chest x-ray (and CT of the abdomen and pelvis) revealed only bibasilar atelectasis. Suggestion: 1. GI follow-up regarding her continued fecal incontinence 2. Continue Ciprofloxacin and Flagyl pending above
[2017-07-18 13:49] VITALS: BP 120/58
[2017-07-18 21:46] VITALS: BP 110/50
[2017-07-19 06:35] VITALS: BP 96/50
--- NOTE | 2017-07-19 06:56 | PN- Housestaff ---
See Addendum Subjective Follow-up For: Hyperbilirubinemia(improving) Decompensated liver cirrhosis Non healing ulcer of right big toe Sepsis secondary to klebsiella bacteremia(resolved) Diarrhea(improving) Subjective: Patient remained afebrile overnight. Seen and examined this morning. She denied any chest pain, short of breath, nausea, chills, fever, headache, palpitation, abdominal pain and dysuria. Her bowel movements has improved and patient wanted to go home. Review of Systems Constitutional: Reports: no symptoms. EENTM: Reports: no symptoms. Cardiovascular: Reports: no symptoms. Respiratory: Reports: no symptoms. Gastrointestinal: Reports: diarrhea. Genitourinary: Reports: no symptoms. Musculoskeletal: Reports: no symptoms. Neurological/Psychological: Reports: no symptoms. Objective Last 24 Hrs of Vital Signs/I&O Vital Signs Date Time Temp Pulse Resp B/P B/P Pulse O2 O2 Flow FiO2 Mean Ox Delivery Rate 07/19 0635 98.9 73 20 96/50 97 Room Air 07/19 0000 Room Air 07/18 2146 98.5 81 20 110/50 97 Room Air 07/18 1349 99.0 79 18 120/58 98 Room Air Intake & Output 07/19 1600 07/19 0800 07/19 0000 Intake Total 240 240 Output Total 3 Balance 240 237 Intake, Oral 240 240 Output, Stool 3 Physical Exam General Appearance: Alert, Oriented X3, Cooperative, No Acute Distress Skin Temp/Moisture Exam: Warm/Dry HEENT: Atraumatic, PERRLA, EOMI Neck: Supple Cardiovascular: Normal S1, Normal S2 Lungs: Clear to Auscultation Abdomen: Soft, No Tenderness Neurological: Normal Speech, Strength at 5/5 X4 Ext, Normal Tone, Sensation Intact Assessment/Plan Assessment: Pateint is a 57-year-old female with past medical history of hyperlipidemia, alcohol abuse, depression, peptic ulcer disease who presents with complaints of stool incontinence and poor appetite. Assessment and Plan: Sepsis secondary to gram klebsiella bacteremia:(resolved) -patient is getting cipro and flagyl, will continue until until 07/22/16. -CT chest, abdomen and pelvis was negative for source of infection. -She has had persistent leukocytosis remained afebrile. -Patient is going to be discharged today and she will take Cipro and Flagyl for 8 more days as recommended by Dr. Roberts.(07/19/17) Hypokalemia and hypomagnesemia, resolved: Patient came in with severe hypokalemia and hypomagnesemia likely secondary to severe diarrhea and alcoholism. Her last episode of diarrhea was last night. -Will continue repletion of K and Mg as necessary. Today his potassium is 3.7. Continue daily daily, will check magnesium level in a.m. -Her stool studies and C.diff have been negative, will send for C. difficile PCR today. 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 -She continues to have persistent diarrhea. -CT scan didn't show any inflammation of the colon. -Patient number of bowel movement has decreased and she had semisolid stools. Patient is feeling much improved and may be discharged today. Decompensated liver cirrhosis: Her CT scan shows chronic hepatosplenomegaly and hepatic cirrhosis likely secondary to heavy alcohol use. Her lab studies showed elevated INR of 2.0 and direct bilirubin of 8. Abdominal U/S shows 5 cm hypoechoic region within the right hepatic lobe concerning for malignancy. Multiphasic CT on 07/09 showed no suspicious liver lesion. The questionable lesion on U/S was lobular portion of the right lobe of liver and not a hepatic mass. -She has a high MELD score of 22 points and Maddrey's Discriminamt Function of 58.6 points. Both indicate a fairly poor prognosis. -Will keep her off steroids for now. -Her total and direct bilirubin have trended up since 07/08 -She has been started on Rifaximin BID. -Alpha fetoprotein - negative -If patient spikes fever we will do cultures, blood and urine also c-xray to find the source of infection.(07/13/17) -We will follow the cbc for wbc count. Non healing ulcer of right big toe: -Dry gangreen of 1st tarsometatarsal joint. -We will follow the x-ray results if it shows suspecion of osteomyelitis , we will get MRI. Anemia: -H/H has remained stable -She received 1unit PRBC on 07/08. -Her repeat CBC has been stable around 8 since transfusion. -Her MCV is elevated likely due to alcohol use. -continue folate supplementation History of Alcohol Use: -Ativan per CIWA -Continue folate, thiamine, multivitamins supplementation. DVT Prophylaxis: Elevated INR of 1.5. Will continue with ALPS -One dose of SC Vit K 10mg was administered on 07/08. Diet: Regular Code: Full Code Problem List: 1. Decompensated hepatic cirrhosis 2. Diarrhea 3. Transaminitis 4. Hyperbilirubinemia Pain Ratin Pain Location: none Pain Goal: Remain pain free Pain Plan: tylenol for mild pain Tomorrow's Labs & Rationales: none
[2017-07-19 10:17] LABS: HEMATOCRIT 24.7 % (37-47); MEAN CORPUSCULAR HGB 35.9 PG (27.0-31.0); MEAN CORPUSCULAR HGB CONC 33.2 G/DL (33.0-37.0); MEAN CORPUSCULAR VOLUME 108.1 FL (81.0-99.0); MEAN PLATELET VOLUME 8.3 FL (7.4-10.4); PLATELET COUNT 295 /CUMM (130-400); RBC DISTRIBUTION WIDTH 22.5 % (11.5-14.5); RED BLOOD CELL CT 2.29 /CUMM (4.20-5.40); WHITE BLOOD CELL COUNT 11.3 /CUMM (4.8-10.8)
[2017-07-19] MEDS ORDERED: XIFAXAN550 M1 PO (12:11)
[2017-07-19] MEDS ORDERED: CIPRO500 M1 PO (12:11)
[2017-07-19] MEDS ORDERED: FLAGYL250 M1 PO (12:11)
--- NOTE | 2017-07-19 12:17 | Patient Discharge Instructions ---
Discharge Instructions General Discharge Information You were seen/treated for: Decompressive liver cirrhosis Sepsis due to positive blood cultures. Gastroenteritis Hypokalemia Hypomagnesemia Watch for these problems: Altered mental status, jaundice, pain in the belly, nausea, vomiting, generalized weakness and diarrhea. If you experience is any of the symptoms please come to ED or call to your primary care physician. Special Instructions: Follow-up is a primary care physician in one week. Follow-up with stacker attendant in 1 week. Diet Continue normal diet: Yes Activity Activity Self Limited: Yes Acute Coronary Syndrome Inclusion Criteria At DC or during hospital stay patient has or had the following: ACS DIAGNOSIS No Discharge Core Measures Meds if any: Prescribed or Continued at Discharge Meds if any: NOT Prescribed or Continued at Discharge Congestive Heart Failure Inclusion Criteria At DC or during hospital stay patient has or had the following: CHF DIAGNOSIS No Discharge Core Measures Meds if any: Prescribed or Continued at Discharge Meds if any: NOT Prescribed or Continued at Discharge Cerebrovascular accident Inclusion Criteria At DC or during hospital stay patient has or had the following: CVA/TIA Diagnosis No Discharge Core Measures Meds if any: Prescribed or Continued at Discharge Meds if any: NOT Prescribed or Continued at Discharge Venous thromboembolism Inclusion Criteria VTE Diagnosis No VTE Type NONE VTE Confirmed by (Test) NONE Discharge Core Measures - Per Current guidelines, there needs to be overlap - treatment for the first 5 days of Warfarin therapy. - If discharged on Warfarin prior to 5 days of - overlap therapy, the patient will need to be - assessed for post discharge needs including - *Post discharge parental anticoagulation - *Warfarin and/or parental anticoagulation education - *Follow up date to check INR post discharge At least 5 days overlap therapy as Inpatient No Meds if any: Prescribed or Continued at Discharge Note: Overlap Therapy is Warfarin and Anticoagulant Meds if any: NOT Prescribed or Continued at Discharge
--- NOTE | 2017-07-19 14:47 | PN- Infect Dx ---
Subjective Subjective: Afebrile. She feels improved with decreased diarrhea, with a small formed bowel movement, and with improved control of her bowel movements. Objective Last 24 Hrs of Vital Signs/I&O Vital Signs Date Time Temp Pulse Resp B/P B/P Pulse O2 O2 Flow FiO2 Mean Ox Delivery Rate 07/19 1429 Nasal Cannula 07/19 0635 98.9 73 20 96/50 97 Room Air 07/19 0000 Room Air 07/18 2146 98.5 81 20 110/50 97 Room Air Intake & Output 07/19 1600 07/19 0800 07/19 0000 Intake Total 720 240 240 Output Total 350 3 Balance 370 240 237 Intake, Oral 720 240 240 Number 3 Bowel Movements Output, Stool 3 Output, Urine 350 Physical Exam Other Physical Findings: She appears well in no acute distress Abdomen is distended, nontender with positive bowel sounds Results Last 24 Hours of Lab Results: Laboratory Tests 07/19 07/19 1131 0814 Chemistry Sodium (137 - 145 mmol/L) 140 Potassium (3.5 - 5.1 mmol/L) 3.9 Chloride (98 - 107 mmol/L) 117 H Carbon Dioxide (22 - 30 mmol/L) 13 L Anion Gap (5 - 16) 10 BUN (7 - 17 mg/dL) 11 Creatinine (0.5 - 1.0 mg/dL) 0.8 Estimated GFR (>60 ml/min) > 60 BUN/Creatinine Ratio (7 - 25 %) 13.8 Magnesium (1.6 - 2.3 mg/dL) 1.6 Total Bilirubin (0.2 - 1.3 mg/dL) 9.6 H Direct Bilirubin (< 0.4 mg/dL) 8.5 H AST (14 - 36 U/L) 124 H ALT (9 - 52 U/L) 35 Alkaline Phosphatase (<127 U/L) 242 H Total Protein (6.3 - 8.2 g/dL) 5.7 L Albumin (3.5 - 5.0 g/dL) 2.2 L Hematology CBC w Diff MAN DIFF ORDERED WBC (4.8 - 10.8 /CUMM) 11.3 H RBC (4.20 - 5.40 /CUMM) 2.29 L Hgb (12.0 - 16.0 G/DL) 8.2 L Hct (37 - 47 %) 24.7 L MCV (81.0 - 99.0 FL) 108.1 H MCH (27.0 - 31.0 PG) 35.9 H RDW (11.5 - 14.5 %) 22.5 H Plt Count (130 - 400 /CUMM) 295 MPV (7.4 - 10.4 FL) 8.3 Segmented Neutrophils (42.2 - 75.2 %) 75 Band Neutrophils (0.0 - 5.0 %) 1 Lymphocytes (20.5 - 51.1 %) 8 L Monocytes (1.7 - 9.3 %) 12 H Eosinophils (0 - 5.0 %) 4 Platelet Estimate (ADEQUATE) VERIFIED BY SMEAR Anisocytosis 1+ Macrocytic Cells 1+ PUBS MCHC (33.0 - 37.0 G/DL) 33.2 Serology C. difficile Tox B Gene Cancelled Last 24 Hours of Doug Results: No new cultures Assessment/Plan Impression: Stable, with temperatures remaining normal and white blood cell count further decreased on Ciprofloxacin and Flagyl now Day 6 of treatment for Klebsiella bacteremia most likely secondary to a GI source given her alcohol-induced cirrhosis and her presentation with fecal incontinence. Though her diarrhea and fecal incontinence appear to have improved the etiology remains unclear, and I have requested GI to reevaluate her. Suggestion: 1. GI follow-up regarding her continued fecal incontinence 2. Consider evaluation by Colorectal surgery if her incontinence persists 3. Continue Ciprofloxacin and Flagyl for 8 more days to complete a 2 week course of treatment
[2017-07-19 14:49] VITALS: BP 116/70
[2017-07-19 15:42] VITALS: BP 116/70
== END 2017-07-19 16:40 | DRG 640 ==
LOC: ERH 17:58 → 2NA 21:07 → ERHI 21:07 → 1NO 21:07 → 2NA 21:07 → ENRESERV 23:09 → 1NO 07-07 00:01 → ENTRNSPT 07-11 13:46 → EDTRNSPTSTS 07-11 13:55 → EDTRNSPT 07-11 13:55 → 2NA 07-11 14:05 → CMPTRNSPT 07-11 14:19 → 2NA 07-12 07:47
PROVIDERS: Dermatology; Internal Medicine; Internal Medicine Adolescent Medicine; Physician Assistant Medical; Student in an Organized Health Care Education/Training Program
PROC: 30233N1 Transfusion of Nonautologous Red Blood Cells into Peripheral Vein, Percutaneous Approach (ICD-10-PCS; principal; 2017-07-08)
DX: E87.6 Hypokalemia (principal); A41.59 Other Gram-negative sepsis; E86.0 Dehydration; D68.9 Coagulation defect, unspecified; R16.2 Hepatomegaly with splenomegaly, not elsewhere classified; L97.519 Non-pressure chronic ulcer of other part of right foot with unspecified severity; R15.9 Full incontinence of feces; F10.239 Alcohol dependence with withdrawal, unspecified; K70.11 Alcoholic hepatitis with ascites; K70.31 Alcoholic cirrhosis of liver with ascites; E83.42 Hypomagnesemia; E80.6 Other disorders of bilirubin metabolism; E78.5 Hyperlipidemia, unspecified; R19.7 Diarrhea, unspecified; F17.200 Nicotine dependence, unspecified, uncomplicated; D63.8 Anemia in other chronic diseases classified elsewhere
CPT/HCPCS: 1NSP; 2NASP; 75661; 87493; ERO; 36415; 73630-RT; 74176; 74177; 74183; 80307; 81001; 82436; 83010; 86920; 87040; 87045; 87070; 87086; 87088; 87389; 93005; 93010; 97110-GO; 97112-GO; 97116-GO; 97161-GP; 97530-GO; A9579; G0480; J0131; J0696; J0713; J3370; J3490; J7040; P9016